=== PATIENT | female | born 1940 | race Caucasian/White ===

== ENCOUNTER 2017-07-19 14:45 | Emergency (ER) | payer MEDICARE, OTHER ==
[2017-07-19 15:00] VITALS: BP 143/77
[2017-07-19] MEDS ORDERED: Diphtheria,Pertussis(Acell),Tetanus Vaccine 0.5 ML SDV IM ONE (15:20)
[2017-07-19] MEDS ORDERED: HYDROmorphone 0.5 MG/0.5 ML Syringe IM ONE (15:20)
--- NOTE | 2017-07-19 15:28 | EDM.PDOC ---
ED HPI GENERAL MEDICAL PROBLEM - General Chief Complaint: Upper Extremity Injury/Pain Stated Complaint: LEFT WRIST AND SHOULDER INJURY Time Seen by Provider: 07/19/17 15:13 Source of Information: Reports: Patient History Limitations: Reports: No Limitations - History of Present Illness INITIAL COMMENTS - FREE TEXT/NARRATIVE: Patient is a 77 y/o female who fell two days ago after tripping on uneven concrete. Patient attempted to catch her self with her left upper extremity with no prevail. She injured her upper lip, left wrist, left shoulder. Denies LOC. Pain has been constant. She is unable to move her left arm secondary to generalized shoulder pain. Denies any n/t to left upper extremity, neck/back pain, n/v, vision changes, or currently on any anticoagulants. 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, Cold Therapy left wrist, left shoulder Pain Score (Numeric/FACES): 9 - Related Data Allergies Allergy/AdvReac Type Severity Reaction Status Date / Time oxycodone [Oxycodone] Allergy Rash Verified 09/28/14 09:10 pioglitazone Allergy Swelling Verified 09/28/14 09:10 rosiglitazone [Rosiglitazone] Allergy Swelling Verified 09/28/14 09:10 Home Meds: Home Meds Calcium Carbonate/Vitamin D3 [Caltrate 600 Plus D3 Tablet] 1 tab PO DAILY [History] Furosemide [Lasix] 20 mg PO DAILY 09/28/14 [History] Gabapentin [Neurontin] 600 mg PO TID 09/28/14 [History] Insulin Glarg,Human.Rec.Analog [Lantus] 34 units SUBCUT DAILY 09/28/14 [History] Insulin Lispro [Humalog] 30 unit SQ DAILY 09/28/14 [History] Losartan [Cozaar] 100 mg PO DAILY 09/28/14 [History] Simvastatin [Zocor] 20 mg PO BEDTIME 09/28/14 [History] Ubidecarenone [Co Q-10] 100 mg PO DAILY 09/28/14 [History] Zinc Gluconate [Zinc] 50 mg PO DAILY 09/28/14 [History] amLODIPine [Norvasc] 2.5 mg PO DAILY 09/28/14 [History] traMADol [Ultram] 50 mg PO Q6H PRN 09/28/14 [History] [place] 1-Uutsbiawr-Ubdnhkr E 1,000 mg PO BID 02/13/15 [History] Cholecalciferol (Vitamin D3) [Vitamin D3] 2,000 unit PO DAILY 07/19/17 [History] Cyclobenzaprine [Flexeril] 10 mg PO BID 07/19/17 [History] DULoxetine [Cymbalta] 30 mg PO DAILY 07/19/17 [History] Metoprolol Tartrate [Lopressor] 50 mg PO BID 07/19/17 [History] Past Medical History Cardiovascular History: Reports: Hypertension Musculoskeletal History: Reports: Arthritis, Fibromyalgia Endocrine/Metabolic History: Reports: Diabetes, Type II - Past Surgical History GI Surgical History: Reports: Cholecystectomy Female Surgical History: Reports: Hysterectomy Social & Family History - Family History Family Medical History: Noncontributory - Tobacco Use Smoking Status *Q: Never Smoker Second Hand Smoke Exposure: Yes - Caffeine Use Caffeine Use: Reports: Coffee - Alcohol Use Days Per Week of Alcohol Use: 0 - Recreational Drug Use Recreational Drug Use: No Review of Systems - Review of Systems Review Of Systems: ROS reveals no pertinent complaints other than HPI. ED EXAM, GENERAL - Physical Exam Exam: See Below Exam Limited By: No Limitations General Appearance: Alert, WD/WN, No Apparent Distress Eye Exam: Bilateral Eye: EOMI, PERRL Ears: Normal External Exam, Hearing Grossly Normal Nose: Normal Inspection, Normal Mucosa, No Blood Throat/Mouth: Other (Swelling to the left upper lip with ? laceration to the inner aspect of the lip. Original and dental implants present. #7 tooth, original mildly loose. ) Head: Normocephalic Neck: Normal Inspection, Supple, Non-Tender, Full Range of Motion. No: Lymphadenopathy (L), Lymphadenopathy (R) Respiratory/Chest: No Respiratory Distress, Lungs Clear, Normal Breath Sounds, Chest Non-Tender Cardiovascular: Normal Peripheral Pulses, Regular Rate, Rhythm Peripheral Pulses: 2+: Radial (R) GI/Abdominal: Normal Bowel Sounds, Soft, Non-Tender, Pelvis Stable Back Exam: Normal Inspection, Full Range of Motion. No: Paraspinal Tenderness, Vertebral Tenderness Extremities: Other (Left Upper Ext: swelling noted to the left wrist. pain with palpation of the wrist. exam hinderd by significant amount of pain. No sensory deficits distally. Pain to the left shoulder with palpation (generalized) AROM non existent. Unable to complete PROM secondary to wrist pain. No pain along the clavicle and ac joint. Bony point tenderness the proximal humerus. Nothing noted distally. No elbow pain, swelling, or change in rom. Left great toe ecchymotic with minimal swelling. Decrease in rom noted 2n to pain. no sensory/ motor deficits. No bony abnormalities. ) Neurological: Alert, Oriented, CN II-XII Intact, Normal Cognition, No Motor/ Sensory Deficits Psychiatric: Normal Affect, Normal Mood Skin Exam: Warm, Dry, Intact, No Rash, Ecchymosis ED TRAUMA EXTREMITY PROCEDURES - Splinting Left Thumb Pre-Procedure NV Status: Normal Post-Procedure NV Status: Normal Splint Material: Fiberglass Splint Design: Thumb Spica Applied & Form Fitted By: Provider, Nurse Provider Post-Splint Application NV Check: NV Status Normal, Good Position Complications: No Course - Vital Signs Last Recorded V/S: Last Vital Signs Temp 97.4 F 07/19/17 14:55 Pulse 95 07/19/17 14:55 Resp 18 07/19/17 14:55 BP 143/77 H 07/19/17 14:55 Pulse Ox 99 07/19/17 14:55 - Orders/Labs/Meds Orders: Active Orders 24 hr Category Date Time Status Vaccines to be Administered [RC] PER UNIT ROUTINE Care 07/19/17 15:21 Active Shoulder Comp Lt [CR] Stat Exams 07/19/17 15:20 Taken Toes Great Toe Lt TA [CR] Stat Exams 07/19/17 15:20 Taken Wrist Comp Min 3V Lt [CR] Stat Exams 07/19/17 15:20 Taken Meds: Medications Discontinued Medications Generic Name Dose Route Start Last Admin Trade Name Rockyq PRN Reason Stop Dose Admin Hydrocodone Bitart/Acetaminophen 1 tab 07/19/17 16:59 07/19/17 17:02 [place] 325-5 Mg PO 07/19/17 17:00 1 tab ONETIME ONE Administration Diphtheria/Tetanus/Acell Pertussis 0.5 ml 07/19/17 15:20 07/19/17 15:25 Adacel IM 07/19/17 15:21 0.5 ml .ONCE ONE Administration Hydromorphone HCl 0.5 mg 07/19/17 15:20 07/19/17 15:29 Dilaudid IM 07/19/17 15:21 0.5 mg ONETIME ONE Administration - Re-Assessments/Exams Free Text/Narrative Re-Assessment/Exam: Ordered x-ray of the left shoulder, left wrist, and left great toe. Ordered dilaudid 0.5mg IM and adacel. X-rays of the reviewed with degenerative changes only. NO obvious fractures. Reviewed with Dr. Davies. Pain 05/26 ordered norco. Thumb spica splint applied with no complications. Patient refused any pain mediations upon discharge. Sling will be applied. Discharge instructions as documented. Departure - Departure Time of Disposition: 17:33 Disposition: Home, Self-Care 01 Condition: Good Clinical Impression: Rotator cuff injury Qualifiers: Encounter type: initial encounter Laterality: left Qualified Code(s): S46.002A - Unspecified injury of muscle(s) and tendon(s) of the rotator cuff of left shoulder, initial encounter Left wrist sprain Qualifiers: Encounter type: initial encounter Qualified Code(s): S63.502A - Unspecified sprain of left wrist, initial encounter Laceration of lip Qualifiers: Encounter type: initial encounter Qualified Code(s): S01.511A - Laceration without foreign body of lip, initial encounter Contusion of toe of left foot Qualifiers: Encounter type: initial encounter Toe: great toe Damage to nail status: without damage Qualified Code(s): S90.112A - Contusion of left great toe without damage to nail, initial encounter - Discharge Information Instructions: Shoulder Pain, [id number], Cast or Splint Care, [id number], How to Use a Sling, [id number]-[id number] Referrals: Robb Dwyer MD [Primary Care Provider] - Wilian Dowling MD [Physician] - Forms: ED Department Discharge Additional Instructions: As discussed x-rays of the left shoulder, wrist, and great toe did not reveal bony abnormalities. Final interpretation is pending thus you will be notified if any are present. I am concerned you may have a rotator cuff injury thus will have you wear a sling for this evening due to pain. Would like you to take sling off when sitting and sleeping. When awake will have you perform small rotating circles 3 times daily, expanding diameter of false pass dependent of comfort. Splint was applied to the left thumb/wrist/forearm due to findings on examination concerning for scaphoid fracture. Please call Dr. Brown office friday to schedule an appt to be evaluated in 7 to 10 days. Apply ice to the affected area 3 times daily, 20 minutes in duration, do not apply ice directly on the skin. Take aleve and tylenol for pain. Refrain from any activities that cause worsening pain. Followup with Dentist to reevaluate teeth. laceration to the lip will heal on its own accord. Continue to reassess for infection. Followup with PCP as needed. Return to the E.D. for any new or worsening symptoms. - My Orders Last 24 Hours: My Active Orders 07/19/17 15:20 Shoulder Comp Lt [CR] Stat Toes Great Toe Lt TA [CR] Stat Wrist Comp Min 3V Lt [CR] Stat 07/19/17 15:21 Vaccines to be Administered [RC] PER UNIT ROUTINE - Assessment/Plan Last 24 Hours: My Active Orders 07/19/17 15:20 Shoulder Comp Lt [CR] Stat Toes Great Toe Lt TA [CR] Stat Wrist Comp Min 3V Lt [CR] Stat 07/19/17 15:21 Vaccines to be Administered [RC] PER UNIT ROUTINE
[2017-07-19] MEDS ORDERED: Acetaminophen/HYDROcodone 325-5 MG Tab PO ONE (16:59)
--- NOTE | 2017-07-21 17:54 | CR ---
Left first toe: Four views of the left first toe were obtained. Comparison: No previous toe or foot exam. Joint spaces are preserved. Slight degenerative change is noted at the tarsometatarsal joint. No acute fracture or other bony abnormality is appreciated. Impression: 1. Slight degenerative change. 2. Nothing acute is appreciated on left first toe study. Diagnostic code #2
--- NOTE | 2017-07-21 17:54 | CR ---
Left shoulder: Three views of the left shoulder were obtained. Comparison: No previous shoulder exam. Slight spurring is noted off the glenoid. Acromioclavicular joint appears within normal limits. Bony structures are slightly osteopenic. No acute fracture or other abnormality is appreciated. Impression: 1. Slight degenerative spurring within the glenoid. 2. No additional abnormality is appreciated on left shoulder study. Diagnostic code #2
--- NOTE | 2017-07-21 17:54 | CR ---
Left wrist: Four views of the left wrist were obtained. Comparison: No prior wrist exam. Calcification is seen posterior to the triquetrum most likely due to old injury. Minimal degenerative change is noted at the carpometacarpal joint of the thumb. Lucent line identified off the lateral aspect of the radial styloid process most likely incidental. No acute fracture or other bony abnormality is appreciated. Impression: 1. Incidental findings. Nothing acute is appreciated. Diagnostic code #2
== END 2017-07-19 17:50 | disposition home or self-care (01) ==
LOC: JD.ED 14:45
DX: S01.511A Laceration without foreign body of lip, initial encounter (principal); S63.502A Unspecified sprain of left wrist, initial encounter; S90.112A Contusion of left great toe without damage to nail, initial encounter; S46.002A Unspecified injury of muscle(s) and tendon(s) of the rotator cuff of left shoulder, initial encounter; I10 Essential (primary) hypertension; M19.90 Unspecified osteoarthritis, unspecified site; E11.9 Type 2 diabetes mellitus without complications; Z79.4 Long term (current) use of insulin; Z79.899 Other long term (current) drug therapy; Z88.6 Allergy status to analgesic agent; Z88.8 Allergy status to other drugs, medicaments and biological substances; Z23 Encounter for immunization; W01.0XXA Fall on same level from slipping, tripping and stumbling without subsequent striking against object, initial encounter
CPT/HCPCS: 29125; 73030; 73110; 73660; 90471; 90715; 96372; 99284; A9270; J1170; 99283

== ENCOUNTER 2019-02-11 15:05 | Inpatient (IN) | payer MEDICARE, OTHER ==
--- NOTE | 2019-02-11 15:39 | EDM.PDOC ---
ED HPI GENERAL MEDICAL PROBLEM - General Chief Complaint: Lower Extremity Injury/Pain Stated Complaint: [facility] Time Seen by Provider: 02/11/19 15:14 Source of Information: Reports: Patient, EMS Notes Reviewed, Family, RN Notes Reviewed History Limitations: Reports: No Limitations - History of Present Illness INITIAL COMMENTS - FREE TEXT/NARRATIVE: Patient is a 78-year-old female who is brought in via [facility] ambulance for the evaluation of right hip pain after a fall. States that she was at her daughter's house with her and they were walking outside and she ended up tripping and falling on a patch of ice she states that she fell backwards and landed directly onto her right hip. She did not hit her head nor had any blackout spells or LOC. The daughter relates that she has not tried to weight- bear on the leg and that a neighbor came over and helped her into a folding chair before the ambulance come to get her. The patient states that she is having some right hip pain and also right shoulder pain as well. She has abrasions to her right knuckles. She states that the pain in her hip does not radiate down her right leg. She states that she is having pain in the lateral portion of the right hip. She thought maybe she heard a pop when she tried to move her leg after the fall. She does have good pulses in the feet and is able to wiggle her toes appropriately, the patient is not on any blood thinners, and the ambulance did give her 25 mcg of fentanyl for pain relief on the ambulance ride here. She states that after the accident her pain was a 10 out of 10. She states that the pain is always there however the fentanyl did help with pain relief at this time. The patient notes that she has not had a previous injury to her hip nor her right shoulder however she does have some arthritis in her joints. Right Hip Pain Score (Numeric/FACES): 8 - Related Data Allergies Allergy/AdvReac Type Severity Reaction Status Date / Time oxycodone [Oxycodone] Allergy Rash Verified 02/11/19 15:17 pioglitazone Allergy Swelling Verified 02/11/19 15:17 rosiglitazone [Rosiglitazone] Allergy Swelling Verified 02/11/19 15:17 Home Meds: Home Meds Calcium Carbonate/Vitamin D3 [Caltrate 600 Plus D3 Tablet] 1 tab PO DAILY [History] Furosemide [Lasix] 20 mg PO DAILY 09/28/14 [History] Gabapentin [Neurontin] 600 mg PO TID 09/28/14 [History] Insulin Lispro [Humalog] 30 unit SQ DAILY 09/28/14 [History] Losartan [Cozaar] 50 mg PO DAILY 09/28/14 [History] Ubidecarenone [Co Q-10] 100 mg PO DAILY 09/28/14 [History] Zinc Gluconate [Zinc] 50 mg PO DAILY 09/28/14 [History] traMADol [Ultram] 50 mg PO Q6H PRN 09/28/14 [History] [place] 0-Cjmpvpxrh-Dkfvwbu E 1,000 mg PO BID 02/13/15 [History] Cholecalciferol (Vitamin D3) [Vitamin D3] 2,000 unit PO DAILY 07/19/17 [History] Cyclobenzaprine [Flexeril] 10 mg PO BID 07/19/17 [History] DULoxetine [Cymbalta] 30 mg PO DAILY 07/19/17 [History] Metoprolol Tartrate [Lopressor] 50 mg PO BID 07/19/17 [History] Simvastatin [Zocor] 20 mg PO BEDTIME 02/10/18 [History] Past Medical History HEENT History: Reports: Impaired Vision Other HEENT History: pt wears glasses Cardiovascular History: Reports: Hypertension [employer] WORKER History: Reports: Musculoskeletal History: Reports: Arthritis, Back Pain, Chronic, Fibromyalgia, Osteoarthritis, Other (See Below) Other Musculoskeletal History: chronic knee pain Endocrine/Metabolic History: Reports: Diabetes, Type II - Infectious Disease History Infectious Disease History: Reports: Chicken Pox, Measles - Past Surgical History GI Surgical History: Reports: Cholecystectomy Female Surgical History: Reports: Hysterectomy Social & Family History - Family History Family Medical History: Noncontributory - Tobacco Use Smoking Status *Q: Never Smoker - Caffeine Use Caffeine Use: Reports: Coffee - Recreational Drug Use Recreational Drug Use: No Review of Systems - Review of Systems Review Of Systems: See Below Constitutional: Reports: No Symptoms Eyes: Reports: No Symptoms Ears: Reports: No Symptoms Nose: Reports: No Symptoms Mouth/Throat: Reports: No Symptoms Respiratory: Reports: No Symptoms Cardiovascular: Reports: No Symptoms GI/Abdominal: Reports: No Symptoms Genitourinary: Reports: No Symptoms Musculoskeletal: Reports: Shoulder Pain (right), Joint Pain (right hip). Denies : Arm Pain, Leg Pain, Joint Swelling Skin: Reports: Wound (Abrasions over her right PIPs on the second, third and fourth digits) Neurological: Reports: No Symptoms Psychiatric: Reports: No Symptoms ED EXAM, GENERAL - Physical Exam Exam: See Below Exam Limited By: No Limitations General Appearance: Alert, WD/WN, No Apparent Distress Eye Exam: Bilateral Eye: EOMI, Normal Inspection, PERRL Ears: Normal External Exam, Normal TMs Nose: Normal Inspection Throat/Mouth: Normal Inspection, Normal Lips, Normal Teeth, Normal Gums, Normal Oropharynx, Normal Voice, No Airway Compromise Head: Atraumatic, Normocephalic Neck: Normal Inspection, Supple, Non-Tender, Full Range of Motion Respiratory/Chest: No Respiratory Distress, Lungs Clear, Normal Breath Sounds, No Accessory Muscle Use, Chest Non-Tender Cardiovascular: Normal Peripheral Pulses, Regular Rate, Rhythm, No Murmur Peripheral Pulses: 3+: Dorsalis Pedis (L), Dorsalis Pedis (R) GI/Abdominal: Normal Bowel Sounds, Soft, Non-Tender, No Distention, No Mass Extremities: Normal Inspection, Normal Capillary Refill, Limited Range of Motion (of right hip and right shoulder d/t pain, ), Other (pt' feet are cool to the touch, but she states that she has poor circulation d/t diabetes, she also has peripheral neruopathy, but states that this is not worse from her normal.) Neurological: Alert, Oriented, Normal Cognition, Normal Reflexes, No Motor/ Sensory Deficits Psychiatric: Normal Affect, Normal Mood Skin Exam: Warm, Dry, Normal Color, No Rash, Wound/Incision (Abrasions over her right PIPs on the second, third and fourth digits) Course - Vital Signs Last Recorded V/S: Last Vital Signs Temp 98.5 F 02/11/19 15:13 Pulse 65 02/11/19 15:13 Resp 20 02/11/19 15:13 BP 152/66 H 02/11/19 15:13 Pulse Ox 95 02/11/19 15:13 - Orders/Labs/Meds Labs: Laboratory Tests 02/11/19 02/11/19 02/11/19 Range/Units 16:08 16:08 16:08 WBC 13.81 H (3.98-10.04) K/mm3 RBC 4.82 (3.98-5.22) M/mm3 Hgb 13.3 (11.2-15.7) gm/L Hct 41.9 (34.1-44.9) % MCV 86.9 (79.4-94.8) fl MCH 27.6 (25.6-32.2) pg MCHC 31.7 L (32.2-35.5) g/dl RDW Std Deviation 44.0 (36.4-46.3) fL Plt Count 229 (182-369) K/mm3 MPV 11.3 (9.4-12.3) fl Neutrophils % (Manual) 89 H (40-60) % Band Neutrophils % 0 (0-10) % Lymphocytes % (Manual) 8 L (20-40) % Atypical Lymphs % 0 % Monocytes % (Manual) 2 (2-10) % Eosinophils % (Manual) 1 (0.7-5.8) % Basophils % (Manual) 0 L (0.1-1.2) Platelet Estimate Adequate RBC Morph Comment Normal Sodium 140 (136-145) mEq/L Potassium 3.8 (3.5-5.1) mEq/L Chloride 102 (98-107) mEq/L Carbon Dioxide 30 (21-32) mEq/L Anion Gap 11.8 (5-15) BUN 22 H (7-18) mg/dL Creatinine 1.0 (0.55-1.02) mg/dL Est Cr Clr Drug Dosing 44.36 mL/min Estimated GFR (MDRD) 53 (>60) mL/min BUN/Creatinine Ratio 22.0 H (14-18) Glucose 115 (83-115) mg/dL Calcium 9.7 (8.5-10.1) mg/dL Total Bilirubin 0.3 (0.2-1.0) mg/dL AST 20 (15-37) U/L ALT 24 (14-59) U/L Alkaline Phosphatase 116 (46-116) U/L Total Protein 7.1 (6.4-8.2) g/dl Albumin 3.5 (3.4-5.0) g/dl Globulin 3.6 gm/dL Albumin/Globulin Ratio 1.0 (1-2) Blood Type O POSITIVE Gel Antibody Screen Negative Meds: Medications Discontinued Medications Generic Name Dose Route Start Last Admin Trade Name Freq PRN Reason Stop Dose Admin Hydromorphone HCl 0.5 mg 02/11/19 15:47 02/11/19 15:57 Dilaudid IVPUSH 02/11/19 15:48 0.5 mg ONETIME ONE Administration Hydromorphone HCl 0.5 mg 02/11/19 17:24 02/11/19 17:36 Dilaudid IVPUSH 02/11/19 17:25 0.5 mg ONETIME ONE Administration - Radiology Interpretation Free Text/Narrative:: Radiologist does not see any acute sign of fracture in her shoulder, he did see a slightly angulated intertrochanteric fracture within the right femur, angulated fragment is seen of the lesser trochanter. No additional fractures seen, degenerative change and slight scoliosis are partially visualized within the lower lumbar spine. - Re-Assessments/Exams Free Text/Narrative Re-Assessment/Exam: 02/11/19 15:41 Patient presents to the ED for evaluation of right hip and right shoulder pain after a fall. I did order x-rays of both joints. I did not order anything for pain at this time as it is controlled with the fentanyl that she was given by the ambulance service. She was directed to call if the pain increases and she wishes to have something more. The patient and the daughter state that the patient's last meal or oral fluid intake was around 1 PM this afternoon. 02/11/19 16:04 The patient's x-rays have returned and the shoulder does not appear to have any acute fractures. Her right hip x-ray does show a intertrochanteric fracture of the right femur. Dr. Dowling was consulted and he will likely fix this tomorrow and asks that Dr. Ortiz admit this under hospitalist service and provide an order for consult for him for tomorrow. Dr. Ortiz was called for this likely admission and she requests preop labs be drawn and a head CT be done if the patient hit her head at all. The patient was asked multiple times again if she hit her head she denies this and the daughter does not think she hit her head either. The daughter was present for the fall. Have ordered a CBC, CMP, & type and screen for labs. I did order 0.5 mg IV Dilaudid for pain relief. 02/11/19 16:12 Dr. Dowling did call back to the ED and states that he plans on fixing the patient' s hip tomorrow around noon. 02/11/19 17:25 Patient is admitted to the hospital on MedSurg with telemetry. She stated that she was having some increased pain and right hip I did order another 0.5 mg of IV Dilaudid. Departure - Departure Time of Disposition: 16:30 Disposition: Admitted As Inpatient 65 Condition: Fair Clinical Impression: Intertrochanteric fracture, hip - Discharge Information *PRESCRIPTION DRUG MONITORING PROGRAM REVIEWED*: No *COPY OF PRESCRIPTION DRUG MONITORING REPORT IN PATIENT TONY: No
[2019-02-11] MEDS ORDERED: HYDROmorphone 1 MG/ML Syringe IVPUSH ONE ×2 (15:47→17:24)
--- NOTE | 2019-02-11 16:39 | CR ---
Pelvis and right hip: AP view of the pelvis was obtained as well as AP and lateral views of the right hip. Slightly angulated intertrochanteric fracture is seen within the right hip. Angulated fragment is seen of the lesser trochanter. Mild joint space narrowing is seen within the right hip. No additional fracture is seen. Degenerative change and slight scoliosis are partially visualized within the lower lumbar spine. Impression: 1. Intertrochanteric fracture with right hip as noted above. 2. Other incidental findings. Diagnostic code #3
--- NOTE | 2019-02-11 16:39 | CR ---
Right shoulder: Three views of the right shoulder were obtained. Comparison: No prior right shoulder exam. Glenohumeral and acromioclavicular joints appear within normal limits. Small nodule is noted within the right upper lung which is felt compatible with granuloma. No acute fracture or other abnormality is seen. Impression: 1. Incidental findings. Nothing acute is appreciated. Diagnostic code #2
[2019-02-11] MEDS ORDERED: traMADol 50 MG Tab PO PRN (19:46)
[2019-02-11] MEDS ORDERED: Ondansetron 4 MG/2 ML SDV IVPUSH PRN (20:02)
--- NOTE | 2019-02-11 20:08 | PCM.HP ---
H&P History of Present Illness - General Date of Service: 02/11/19 Admit Problem/Dx: Admission Diagnosis/Problem Admission Diagnosis/Problem Hip fracture, intertrochanteric Source of Information: Patient, Family, Provider History Limitations: Reports: No Limitations - History of Present Illness Initial Comments - Free Text/Narative: 78 year old female slipped on ice which resulted in right hip and shoulder pain. Radiographic studies document a right hip fracture. She is scheduled for ortho surgery on 02/12/19, time TBD. PMH: DM type 2; HTN; HLD; OA; FMG. Onset of Symptoms: Reports: Sudden Symptom Onset Date: 02/11/19 Duration of Symptoms: Reports: Hour(s):, Getting Worse Location: Reports: Lower Extremity, Right Quality: Reports: Sharp Severity: Moderate Improves with: Reports: Medication Worsens with: Reports: Movement Associated Symptoms: Reports: No Other Symptoms Right Hip Pain Score (Numeric/FACES): 8 - Related Data Allergies/Adverse Reactions: Allergies Allergy/AdvReac Type Severity Reaction Status Date / Time oxycodone [Oxycodone] Allergy Rash Verified 02/11/19 15:17 pioglitazone Allergy Swelling Verified 02/11/19 15:17 rosiglitazone [Rosiglitazone] Allergy Swelling Verified 02/11/19 15:17 Home Medications: Home Meds Calcium Carbonate/Vitamin D3 [Caltrate 600 Plus D3 Tablet] 1 tab PO DAILY [History] Furosemide [Lasix] 20 mg PO DAILY 09/28/14 [History] Gabapentin [Neurontin] 600 mg PO TID 09/28/14 [History] Insulin Lispro [Humalog] 30 unit SQ DAILY 09/28/14 [History] Losartan [Cozaar] 50 mg PO DAILY 09/28/14 [History] Ubidecarenone [Co Q-10] 100 mg PO DAILY 09/28/14 [History] Zinc Gluconate [Zinc] 50 mg PO DAILY 09/28/14 [History] traMADol [Ultram] 50 mg PO Q6H PRN 09/28/14 [History] [place] 4-Gvhhzdmnv-Qqqzbmc E 1,000 mg PO BID 02/13/15 [History] Cholecalciferol (Vitamin D3) [Vitamin D3] 2,000 unit PO DAILY 07/19/17 [History] Cyclobenzaprine [Flexeril] 10 mg PO BID 07/19/17 [History] DULoxetine [Cymbalta] 30 mg PO DAILY 07/19/17 [History] Metoprolol Tartrate [Lopressor] 50 mg PO BID 07/19/17 [History] Simvastatin [Zocor] 20 mg PO BEDTIME 02/10/18 [History] Past Medical History HEENT History: Reports: Impaired Vision Other HEENT History: pt wears glasses Cardiovascular History: Reports: Hypertension Gastrointestinal History: Reports: Other (See Below) Other Gastrointestinal History: "colon trouble"-per pt. was told to watch for a torsion, she stated her colon pointed [employer] History: Reports: Musculoskeletal History: Reports: Arthritis, Back Pain, Chronic, Fibromyalgia, Osteoarthritis, Other (See Below) Other Musculoskeletal History: chronic knee pain Endocrine/Metabolic History: Reports: Diabetes, Type II - Infectious Disease History Infectious Disease History: Reports: Chicken Pox, Measles - Past Surgical History GI Surgical History: Reports: Cholecystectomy Female Surgical History: Reports: Hysterectomy Social & Family History - Family History Family Medical History: Noncontributory - Tobacco Use Smoking Status *Q: Never Smoker Second Hand Smoke Exposure: No - Caffeine Use Caffeine Use: Reports: Coffee Other Caffeine Use: 4 -5 cups a day - Recreational Drug Use Recreational Drug Use: No H&P Review of Systems - Review of Systems: Review Of Systems: See Below General: Reports: Weakness HEENT: Reports: No Symptoms Pulmonary: Reports: No Symptoms Cardiovascular: Reports: No Symptoms Gastrointestinal: Reports: No Symptoms Genitourinary: Reports: No Symptoms Musculoskeletal: Reports: No Symptoms Skin: Reports: No Symptoms Psychiatric: Reports: No Symptoms Neurological: Reports: No Symptoms Hematologic/Lymphatic: Reports: No Symptoms Immunologic: Reports: No Symptoms Exam - Exam Exam: See Below - Vital Signs Vital Signs: Last Vital Signs Temp 36.9 C 02/11/19 15:13 Pulse 65 02/11/19 15:13 Resp 20 02/11/19 15:13 BP 152/66 H 02/11/19 15:13 Pulse Ox 95 02/11/19 15:13 Weight: 77.927 kg - Exam Quality Assessment: Urinary Catheter, DVT Prophylaxis General: Alert, Oriented, Cooperative HEENT: Conjunctiva Clear, EOMI, Hearing Intact, Nares Patent, Normal Nasal Septum, Pupils Equal, Pupils Reactive, PERRLA Neck: Trachea Midline Lungs: Normal Respiratory Effort Cardiovascular: Regular Rate GI/Abdominal Exam: Normal Bowel Sounds, Soft, Non-Tender, No Organomegaly, No Distention (Female) Exam: Deferred Rectal (Female) Exam: Deferred Back Exam: Normal Inspection Extremities: Normal Inspection, Non-Tender, Normal Capillary Refill Skin: Warm Neurological: Cranial Nerves Intact Neuro Extensive - Mental Status: Alert, Oriented x3, Normal Mood/Affect, Normal Cognition, Memory Intact Neuro Extensive - Motor, Sensory, Reflexes: CN II-XII Intact Psychiatric: Alert, Normal Affect, Normal Mood - Patient Data Lab Results Last 24 hrs: Laboratory Results - last 24 hr 02/11/19 02/11/19 02/11/19 Range/Units 16:08 16:08 16:08 WBC 13.81 H (3.98-10.04) K/mm3 RBC 4.82 (3.98-5.22) M/mm3 Hgb 13.3 (11.2-15.7) gm/L Hct 41.9 (34.1-44.9) % MCV 86.9 (79.4-94.8) fl MCH 27.6 (25.6-32.2) pg MCHC 31.7 L (32.2-35.5) g/dl RDW Std Deviation 44.0 (36.4-46.3) fL Plt Count 229 (182-369) K/mm3 MPV 11.3 (9.4-12.3) fl Neutrophils % (Manual) 89 H (40-60) % Band Neutrophils % 0 (0-10) % Lymphocytes % (Manual) 8 L (20-40) % Atypical Lymphs % 0 % Monocytes % (Manual) 2 (2-10) % Eosinophils % (Manual) 1 (0.7-5.8) % Basophils % (Manual) 0 L (0.1-1.2) Platelet Estimate Adequate RBC Morph Comment Normal Sodium 140 (136-145) mEq/L Potassium 3.8 (3.5-5.1) mEq/L Chloride 102 (98-107) mEq/L Carbon Dioxide 30 (21-32) mEq/L Anion Gap 11.8 (5-15) BUN 22 H (7-18) mg/dL Creatinine 1.0 (0.55-1.02) mg/dL Est Cr Clr Drug Dosing 44.36 mL/min Estimated GFR (MDRD) 53 (>60) mL/min BUN/Creatinine Ratio 22.0 H (14-18) Glucose 115 (83-115) mg/dL Calcium 9.7 (8.5-10.1) mg/dL Total Bilirubin 0.3 (0.2-1.0) mg/dL AST 20 (15-37) U/L ALT 24 (14-59) U/L Alkaline Phosphatase 116 (46-116) U/L Total Protein 7.1 (6.4-8.2) g/dl Albumin 3.5 (3.4-5.0) g/dl Globulin 3.6 gm/dL Albumin/Globulin Ratio 1.0 (1-2) Blood Type O POSITIVE Gel Antibody Screen Negative Result Diagrams: 02/11/19 16:08 02/11/19 16:08 - Problem List (1) Diabetes mellitus SNOMED Code(s): 91906220 ICD Code: E11.9 - TYPE 2 DIABETES MELLITUS WITHOUT COMPLICATIONS Status: Acute Current Visit: No (2) HTN (hypertension), malignant SNOMED Code(s): 75031298 ICD Code: I10 - ESSENTIAL (PRIMARY) HYPERTENSION Status: Acute Current Visit: No (3) Intertrochanteric fracture, hip SNOMED Code(s): 228502647 ICD Code: S72.143A - DISPLACED INTERTROCHANTERIC FRACTURE OF UNSP FEMUR, INIT Status: Acute Current Visit: No Problem List Initiated/Reviewed/Updated: Yes Orders Last 24hrs: Active Orders 24 hr Category Date Time Status Admission Status [Patient Status] [ADT] Routine ADT 02/11/19 16:25 Active EKG 12 Lead [EKG Documentation Completion] [RC] ROUTINE Care 02/11/19 19:54 Ordered Insert [place] Catheter [Insert Urinary Catheter] [OM.PC] Care 02/11/19 20:00 Ordered Q24H Urinary Catheter Assessment [RC] ASDIRECTED Care 02/11/19 19:49 Ordered Verify Patient Consent Obtain [RC] ASDIRECTED Care 02/11/19 19:37 Active Consult to Case Management/Mold Runner [CONS] Cons 02/12/19 09:00 Ordered Routine Consult to Occupational Therapy [OT Evaluation and Cons 02/12/19 09:00 Ordered Treatment] [CONS] Routine Consult to Physical Therapy [PT Evaluation and Cons 02/12/19 09:00 Ordered Treatment] [CONS] Routine Heart Healthy Diet [DIET] Diet 02/11/19 Dinner Active NPO After Midnight [Nothing per Oral After Midnight Diet 02/12/19 Lunch Ordered Diet] [DIET] BMP [BASIC METABOLIC PANEL,BMP] [CHEM] DAILY Lab 02/12/19 05:00 Ordered BMP [BASIC METABOLIC PANEL,BMP] [CHEM] DAILY Lab 02/13/19 05:00 Ordered BMP [BASIC METABOLIC PANEL,BMP] [CHEM] DAILY Lab 02/14/19 05:00 Ordered BMP [BASIC METABOLIC PANEL,BMP] [CHEM] DAILY Lab 02/15/19 05:00 Ordered CBC WITH AUTO DIFF [HEME] DAILY Lab 02/12/19 05:00 Ordered CBC WITH AUTO DIFF [HEME] DAILY Lab 02/13/19 05:00 Ordered CBC WITH AUTO DIFF [HEME] DAILY Lab 02/14/19 05:00 Ordered CBC WITH AUTO DIFF [HEME] DAILY Lab 02/15/19 05:00 Ordered CRP [C-REACTIVE PROTEIN] [CHEM] DAILY Lab 02/12/19 05:00 Ordered CRP [C-REACTIVE PROTEIN] [CHEM] DAILY Lab 02/13/19 05:00 Ordered CRP [C-REACTIVE PROTEIN] [CHEM] DAILY Lab 02/14/19 05:00 Ordered CRP [C-REACTIVE PROTEIN] [CHEM] DAILY Lab 02/15/19 05:00 Ordered INR,PT,PROTHROMBIN TIME [COAG] Routine Lab 02/12/19 05:00 Ordered MAGNESIUM [CHEM] AM Lab 02/12/19 05:11 Ordered MAGNESIUM [CHEM] AM Lab 02/13/19 05:11 Ordered MAGNESIUM [CHEM] AM Lab 02/14/19 05:11 Ordered MAGNESIUM [CHEM] AM Lab 02/15/19 05:11 Ordered METH-RESIST S.AUR,MRSA BY PCR [MOLEC] Routine Lab 02/11/19 19:37 Ordered PTT,PARTIAL THROMBOPLSTIN TIME [COAG] Routine Lab 02/12/19 05:00 Ordered UA RFX NIA AND CULT IF INDIC [URIN] Routine Lab 02/11/19 19:49 Ordered Acetaminophen/HYDROcodone [[place] 325-5 MG] Med 02/11/19 19:58 Ordered 1 tab PO Q6H PRN Cyclobenzaprine [Flexeril] Med 02/11/19 21:00 Ordered 10 mg PO BID DULoxetine [Cymbalta] Med 02/12/19 09:00 Ordered 30 mg PO DAILY Gabapentin [Neurontin] Med 02/11/19 21:00 Ordered 600 mg PO TID HYDROmorphone [Dilaudid] Med 02/11/19 19:57 Ordered 0.5 mg IVPUSH Q8H PRN Lactated Ringers @ 100 MLS/HR(1000ml Bag) Med 02/11/19 20:15 Ordered Lactated Ringers [Ringers, Lactated] 1,000 ml IV ASDIRECTED Metoprolol Tartrate [Lopressor] Med 02/11/19 21:00 Ordered 50 mg PO BID Ondansetron [Zofran] Med 02/11/19 20:02 Ordered 4 mg IVPUSH Q8H PRN Simvastatin [Zocor] Med 02/11/19 21:00 Ordered 20 mg PO BEDTIME traMADol [Ultram] Med 02/11/19 19:46 Ordered 50 mg PO Q6H PRN Medication Orders Hydrocodone Bitart/Acetaminophen ([place] 325-5 Mg) 1 tab PO Q6H PRN PRN Reason: Pain (moderate 4-6) Cyclobenzaprine HCl (Flexeril) 10 mg PO BID [place] Duloxetine HCl (Cymbalta) 30 mg PO DAILY [place] Gabapentin (Neurontin) 600 mg PO TID [place] Hydromorphone HCl (Dilaudid) 0.5 mg IVPUSH Q8H PRN PRN Reason: Pain (severe 7-10) Lactated Ringer's (Ringers, Lactated) 1,000 mls @ 100 mls/hr IV ASDIRECTED [place] Metoprolol Tartrate (Lopressor) 50 mg PO BID [place] Ondansetron HCl (Zofran) 4 mg IVPUSH Q8H PRN PRN Reason: Nausea/Vomiting Simvastatin (Zocor) 20 mg PO BEDTIME [place] Tramadol HCl (Ultram) 50 mg PO Q6H PRN PRN Reason: Pain Assessment/Plan Comment:: Impression: Right hip fracture S/P fall; intertrochanteric fracture, right femur Right shoulder pain, no evidence of fracture Chronic FMG HTN OA Diabetes mellitus, type 2 Plan: Preop eval Home meds Daily labs Pain mgt Consult PT/OT/CM DVT/GI prophylaxis
[2019-02-11] MEDS ORDERED: Lactated Ringers 1,000 ML IV SCH (20:15)
[2019-02-11] MEDS: Acetaminophen/HYDROcodone 325-5 MG Tab PO PRN (20:44)
[2019-02-11] MEDS: Gabapentin 300 MG Cap PO SCH (20:44)
[2019-02-11] MEDS: Cyclobenzaprine 10 MG Tab PO SCH (20:44)
[2019-02-11] MEDS: Simvastatin 20 MG Tab PO SCH (20:45)
[2019-02-11] MEDS: Metoprolol Tartrate 50 MG Tab PO SCH (20:45)
[2019-02-12] MEDS: HYDROmorphone 0.5 MG/0.5 ML Syringe IVPUSH PRN ×2 (00:38→23:02)
--- NOTE | 2019-02-12 06:50 | PCM.PN ---
- General Info Date of Service: 02/12/19 Admission Dx/Problem (Free Text): Admission Diagnosis/Problem Admission Diagnosis/Problem Hip fracture, intertrochanteric Functional Status: Reports: Pain Controlled, Tolerating Diet, Urinating, Incentive Spirometry. Denies: Ambulating, New Symptoms - Review of Systems General: Reports: Weakness. Denies: Fever, Fatigue, Malaise, Chills HEENT: Reports: No Symptoms. Denies: Headaches, Sore Throat Pulmonary: Reports: Pleuritic Chest Pain (very mild ). Denies: Shortness of Breath, Cough, Sputum, Wheezing Cardiovascular: Reports: No Symptoms. Denies: Chest Pain, Palpitations, Dyspnea on Exertion, Edema Gastrointestinal: Reports: No Symptoms. Denies: Abdominal Pain, Constipation, Diarrhea, Nausea, Vomiting Genitourinary: Reports: No Symptoms. Denies: Pain Musculoskeletal: Reports: Leg Pain (mild ) Skin: Reports: No Symptoms Neurological: Reports: Numbness (2/2 anesthesia), Tingling (2/2 anesthesia), Difficulty Walking, Weakness, Gait Disturbance Psychiatric: Reports: No Symptoms. Denies: Confusion - Patient Data Vitals - Most Recent: Last Vital Signs Temp 98.1 F 02/12/19 03:29 Pulse 73 02/12/19 03:29 Resp 18 02/12/19 03:29 BP 118/73 02/12/19 03:29 Pulse Ox 97 02/12/19 03:29 Weight - Most Recent: 172 lb I&O - Last 24 Hours: Intake & Output 02/11/19 02/11/19 02/12/19 14:59 22:59 06:59 Intake Total 700 Output Total 1000 Balance -300 Lab Results Last 24 Hours: Laboratory Results - last 24 hr 02/11/19 02/11/19 02/11/19 Range/Units 16:08 16:08 16:08 WBC 13.81 H (3.98-10.04) K/mm3 RBC 4.82 (3.98-5.22) M/mm3 Hgb 13.3 (11.2-15.7) gm/L Hct 41.9 (34.1-44.9) % MCV 86.9 (79.4-94.8) fl MCH 27.6 (25.6-32.2) pg MCHC 31.7 L (32.2-35.5) g/dl RDW Std Deviation 44.0 (36.4-46.3) fL Plt Count 229 (182-369) K/mm3 MPV 11.3 (9.4-12.3) fl Neutrophils % (Manual) 89 H (40-60) % Band Neutrophils % 0 (0-10) % Lymphocytes % (Manual) 8 L (20-40) % Atypical Lymphs % 0 % Monocytes % (Manual) 2 (2-10) % Eosinophils % (Manual) 1 (0.7-5.8) % Basophils % (Manual) 0 L (0.1-1.2) Platelet Estimate Adequate RBC Morph Comment Normal Sodium 140 (136-145) mEq/L Potassium 3.8 (3.5-5.1) mEq/L Chloride 102 (98-107) mEq/L Carbon Dioxide 30 (21-32) mEq/L Anion Gap 11.8 (5-15) BUN 22 H (7-18) mg/dL Creatinine 1.0 (0.55-1.02) mg/dL Est Cr Clr Drug Dosing 44.36 mL/min Estimated GFR (MDRD) 53 (>60) mL/min BUN/Creatinine Ratio 22.0 H (14-18) Glucose 115 (83-115) mg/dL Calcium 9.7 (8.5-10.1) mg/dL Total Bilirubin 0.3 (0.2-1.0) mg/dL AST 20 (15-37) U/L ALT 24 (14-59) U/L Alkaline Phosphatase 116 (46-116) U/L Total Protein 7.1 (6.4-8.2) g/dl Albumin 3.5 (3.4-5.0) g/dl Globulin 3.6 gm/dL Albumin/Globulin Ratio 1.0 (1-2) Urine Color (Yellow) Urine Appearance (Clear) Urine pH (5.0-8.0) Ur Specific [place] (1.005-1.030) Urine Protein (Negative) Urine Glucose (UA) (Negative) Urine Ketones (Negative) Urine Occult Blood (Negative) Urine Nitrite (Negative) Urine Bilirubin (Negative) Urine Urobilinogen (0.2-1.0) Ur Leukocyte Esterase (Negative) Urine RBC (0-5) /hpf Urine WBC (0-5) /hpf Ur Epithelial Cells (0-5) /hpf Urine Bacteria (FEW) /hpf Hyaline Casts (0-5) /lpf Urine Mucus (FEW) /hpf MRSA (PCR) Blood Type O POSITIVE Gel Antibody Screen Negative 02/12/19 02/12/19 Range/Units 00:40 03:35 WBC (3.98-10.04) K/mm3 RBC (3.98-5.22) M/mm3 Hgb (11.2-15.7) gm/L Hct (34.1-44.9) % MCV (79.4-94.8) fl MCH (25.6-32.2) pg MCHC (32.2-35.5) g/dl RDW Std Deviation (36.4-46.3) fL Plt Count (182-369) K/mm3 MPV (9.4-12.3) fl Neutrophils % (Manual) (40-60) % Band Neutrophils % (0-10) % Lymphocytes % (Manual) (20-40) % Atypical Lymphs % % Monocytes % (Manual) (2-10) % Eosinophils % (Manual) (0.7-5.8) % Basophils % (Manual) (0.1-1.2) Platelet Estimate RBC Morph Comment Sodium (136-145) mEq/L Potassium (3.5-5.1) mEq/L Chloride (98-107) mEq/L Carbon Dioxide (21-32) mEq/L Anion Gap (5-15) BUN (7-18) mg/dL Creatinine (0.55-1.02) mg/dL Est Cr Clr Drug Dosing mL/min Estimated GFR (MDRD) (>60) mL/min BUN/Creatinine Ratio (14-18) Glucose (83-115) mg/dL Calcium (8.5-10.1) mg/dL Total Bilirubin (0.2-1.0) mg/dL AST (15-37) U/L ALT (14-59) U/L Alkaline Phosphatase (46-116) U/L Total Protein (6.4-8.2) g/dl Albumin (3.4-5.0) g/dl Globulin gm/dL Albumin/Globulin Ratio (1-2) Urine Color Yellow (Yellow) Urine Appearance Slt cloudy H (Clear) Urine pH 6.0 (5.0-8.0) Ur Specific [place] 1.025 (1.005-1.030) Urine Protein Trace H (Negative) Urine Glucose (UA) Negative (Negative) Urine Ketones 1+ H (Negative) Urine Occult Blood Negative (Negative) Urine Nitrite Negative (Negative) Urine Bilirubin Negative (Negative) Urine Urobilinogen 1.0 (0.2-1.0) Ur Leukocyte Esterase Negative (Negative) Urine RBC Not seen (0-5) /hpf Urine WBC Not seen (0-5) /hpf Ur Epithelial Cells Not seen (0-5) /hpf Urine Bacteria Rare (FEW) /hpf Hyaline Casts 0-5 (0-5) /lpf Urine Mucus Rare H (FEW) /hpf MRSA (PCR) Negative Blood Type Gel Antibody Screen Med Orders - Current: Current Medications Hydrocodone Bitart/Acetaminophen ([place] 325-5 Mg) 1 tab PO Q6H PRN PRN Reason: Pain (moderate 4-6) Last Admin: 02/11/19 20:44 Dose: 1 tab Cyclobenzaprine HCl (Flexeril) 10 mg PO BID [facility] Last Admin: 02/11/19 20:44 Dose: 10 mg Duloxetine HCl (Cymbalta) 30 mg PO DAILY [facility] Enoxaparin Sodium (Lovenox) 30 mg SUBCUT Q24H [facility] Gabapentin (Neurontin) 600 mg PO TID [facility] Last Admin: 02/11/19 20:44 Dose: 600 mg Hydromorphone HCl (Dilaudid) 0.5 mg IVPUSH Q8H PRN PRN Reason: Pain (severe 7-10) Last Admin: 02/12/19 00:38 Dose: 0.5 mg Lactated Ringer's (Ringers, Lactated) 1,000 mls @ 100 mls/hr IV ASDIRECTED [facility] Last Admin: 02/12/19 00:30 Dose: 100 mls/hr Metoprolol Tartrate (Lopressor) 50 mg PO BID [facility] Last Admin: 02/11/19 20:45 Dose: 50 mg Ondansetron HCl (Zofran) 4 mg IVPUSH Q8H PRN PRN Reason: Nausea/Vomiting Simvastatin (Zocor) 20 mg PO BEDTIME [facility] Last Admin: 02/11/19 20:45 Dose: 20 mg Tramadol HCl (Ultram) 50 mg PO Q6H PRN PRN Reason: Pain Discontinued Medications Hydromorphone HCl (Dilaudid) 0.5 mg IVPUSH ONETIME ONE Stop: 02/11/19 15:48 Last Admin: 02/11/19 15:57 Dose: 0.5 mg Hydromorphone HCl (Dilaudid) 0.5 mg IVPUSH ONETIME ONE Stop: 02/11/19 17:25 Last Admin: 02/11/19 17:36 Dose: 0.5 mg - Exam Quality Assessment: DVT Prophylaxis General: Alert, Oriented, Cooperative HEENT: Pupils Equal, Pupils Reactive, EOMI, Mucous Membr. Moist/[place] Neck: Supple, Trachea Midline Lungs: Clear to Auscultation, Normal Respiratory Effort Cardiovascular: Regular Rate, Regular Rhythm GI/Abdominal Exam: Normal Bowel Sounds, Soft, Non-Tender, No Organomegaly, No Distention (Female) Exam: Deferred Back Exam: Normal Inspection, Full Range of Motion Extremities: No Pedal Edema, Normal Capillary Refill, Leg Pain, Limited Range of Motion, Other (Bandage in place on right hip. Cooling pack in place ) Skin: Warm, Dry, Intact Wound/Incisions: Dressing Dry and Intact, No Drainage Neurological: No New Focal Deficit Psy/Mental Status: Alert, Normal Affect, Normal Mood - Problem List & Annotations (1) Diabetes mellitus SNOMED Code(s): 83801210 Code(s): E11.9 - TYPE 2 DIABETES MELLITUS WITHOUT COMPLICATIONS Status: Chronic Priority: Medium Current Visit: No Qualifiers: Diabetes mellitus type: type 2 Diabetes mellitus ocean transportation intermediary insulin use: with ocean transportation intermediary use Diabetes mellitus complication status: with unspecified complications Qualified Code(s): E11.8 - Type 2 diabetes mellitus with unspecified complications; Z79.4 - correction (current) use of insulin (2) HTN (hypertension), malignant SNOMED Code(s): 37566760 Code(s): I10 - ESSENTIAL (PRIMARY) HYPERTENSION Status: Chronic Priority : Medium Current Visit: No (3) Intertrochanteric fracture, hip SNOMED Code(s): 473487042 Code(s): S72.143A - DISPLACED INTERTROCHANTERIC FRACTURE OF UNSP FEMUR, INIT Status: Acute Priority: High Current Visit: Yes - Problem List Review Problem List Initiated/Reviewed/Updated: Yes - Plan Plan:: Impression: Right hip fracture S/P fall; intertrochanteric fracture, right femur -Post-op day 0 right femur IM nailing Right shoulder pain, no evidence of fracture Chronic FMG HTN OA Diabetes mellitus, type 2 Plan: Preop eval surgical fixation 02/12/19 Pain management Remove grace catheter when ambulatory Home meds Daily labs Pain mgt IS Consult PT/OT/CM DVT/GI prophylaxis
[2019-02-12] MEDS ORDERED: 50% Dextrose in Water 50 ML Syringe IVPUSH PRN (06:58)
[2019-02-12] MEDS: Insulin Lispro 100 Units/ML 3 ML Vial SUBCUT SCH ×4 (07:44→22:45)
[2019-02-12] MEDS: Metoprolol Tartrate 50 MG Tab PO SCH ×2 (08:36→21:23)
--- NOTE | 2019-02-12 08:39 | PCM.PREANE ---
Preanesthetic Assessment - Procedure Proposed Procedure: Right Femur Nailing/Vaughn - Anesthesia/Transfusion/Family Hx Anesthesia History: Prior Anesthesia Without Reaction Family History of Anesthesia Reaction: No Transfusion History: No Prior Transfusion(s) - Review of Systems General: Weakness Pulmonary: No Symptoms Cardiovascular: No Symptoms, Other (Has taken care of her for the last 5 years. Brings groceries in the house does house work. Hypertension controlled with medications. ) Gastrointestinal: No Symptoms (History of a narrow color per patient. ) Neurological: Pre-Existing Deficit (Chronic back pain/spasms. Fibromyalgia. ) Other: Reports: None (Chronic dry mouth. ), Diabetes (Type II, on insulin.) - Physical Assessment NPO Status Date: 02/12/19 NPO Status Time: 00:00 Pulse: 73 O2 Sat by Pulse Oximetry: 97 Respiratory Rate: 18 Blood Pressure: 118/73 Temperature: 36.7 C Vital Signs: Last Vital Signs Temp 36.7 C 02/12/19 03:29 Pulse 73 02/12/19 03:29 Resp 18 02/12/19 03:29 BP 118/73 02/12/19 03:29 Pulse Ox 97 02/12/19 03:29 Height: 1.7 m Weight: 78.018 kg ASA Class: 2 Mental Status: Alert & Oriented x3 Airway Class: Mallampati = 2 Dentition: Reports: Broken Tooth/Teeth, Caries (Discolored. Cracked filling on the left lower. Multiple missing fillings. Just had her teeth cleaned last week. ) Thyro-Mental Finger Breadths: 2 Mouth Opening Finger Breadths: 3 ROM/Head Extension: Full Lungs: Clear to Auscultation, Normal Respiratory Effort, Decreased Breath Sounds Cardiovascular: Regular Rate, Regular Rhythm - Lab Values: Laboratory Last Values WBC 13.99 K/mm3 (3.98-10.04) H 02/12/19 06:18 RBC 4.45 M/mm3 (3.98-5.22) 02/12/19 06:18 Hgb 12.3 gm/L (11.2-15.7) 02/12/19 06:18 Hct 38.7 % (34.1-44.9) 02/12/19 06:18 MCV 87.0 fl (79.4-94.8) 02/12/19 06:18 MCH 27.6 pg (25.6-32.2) 02/12/19 06:18 MCHC 31.8 g/dl (32.2-35.5) L 02/12/19 06:18 RDW Std Deviation 44.2 fL (36.4-46.3) 02/12/19 06:18 Plt Count 204 K/mm3 (182-369) 02/12/19 06:18 MPV 12.0 fl (9.4-12.3) 02/12/19 06:18 Neut % (Auto) 79.8 % (34.0-71.1) H 02/12/19 06:18 Lymph % (Auto) 10.0 % (19.3-51.7) L 02/12/19 06:18 [place] % (Auto) 7.9 % (4.7-12.5) 02/12/19 06:18 Eos % (Auto) 2.0 (0.7-5.8) 02/12/19 06:18 Baso % (Auto) 0.1 % (0.1-1.2) 02/12/19 06:18 Neut # (Auto) 11.16 K/mm3 (1.56-6.13) H 02/12/19 06:18 Lymph # (Auto) 1.40 K/mm3 (1.18-3.74) 02/12/19 06:18 [place] # (Auto) 1.11 K/mm3 (0.24-0.36) H 02/12/19 06:18 Eos # (Auto) 0.28 K/mm3 (0.04-0.36) 02/12/19 06:18 Baso # (Auto) 0.01 K/mm3 (0.01-0.08) 02/12/19 06:18 Neutrophils % (Manual) 89 % (40-60) H 02/11/19 16:08 Band Neutrophils % 0 % (0-10) 02/11/19 16:08 Lymphocytes % (Manual) 8 % (20-40) L 02/11/19 16:08 Atypical Lymphs % 0 % 02/11/19 16:08 Monocytes % (Manual) 2 % (2-10) 02/11/19 16:08 Eosinophils % (Manual) 1 % (0.7-5.8) 02/11/19 16:08 Basophils % (Manual) 0 (0.1-1.2) L 02/11/19 16:08 Platelet Estimate Adequate 02/11/19 16:08 RBC Morph Comment Normal 02/11/19 16:08 PT 11.2 SECONDS (9.5-12.1) 02/12/19 06:18 INR 1.03 02/12/19 06:18 APTT 30 SECONDS (24-31) 02/12/19 06:18 Sodium 139 mEq/L (136-145) 02/12/19 06:18 Potassium 3.8 mEq/L (3.5-5.1) 02/12/19 06:18 Chloride 104 mEq/L (98-107) 02/12/19 06:18 Carbon Dioxide 28 mEq/L (21-32) 02/12/19 06:18 Anion Gap 10.8 (5-15) 02/12/19 06:18 BUN 17 mg/dL (7-18) 02/12/19 06:18 Creatinine 0.7 mg/dL (0.55-1.02) 02/12/19 06:18 Est Cr Clr Drug Dosing 63.37 mL/min 02/12/19 06:18 Estimated GFR (MDRD) > 60 mL/min (>60) 02/12/19 06:18 BUN/Creatinine Ratio 24.3 (14-18) H 02/12/19 06:18 Glucose 110 mg/dL (83-115) 02/12/19 06:18 POC Glucose 115 mg/dL (83-110) H 02/12/19 07:22 Calcium 9.0 mg/dL (8.5-10.1) 02/12/19 06:18 Magnesium 1.8 mg/dl (1.8-2.4) 02/12/19 06:18 Total Bilirubin 0.3 mg/dL (0.2-1.0) 02/11/19 16:08 AST 20 U/L (15-37) 02/11/19 16:08 ALT 24 U/L (14-59) 02/11/19 16:08 Alkaline Phosphatase 116 U/L (46-116) 02/11/19 16:08 C-Reactive Protein 3.2 mg/dL (<1.0) H* 02/12/19 06:18 Total Protein 7.1 g/dl (6.4-8.2) 02/11/19 16:08 Albumin 3.5 g/dl (3.4-5.0) 02/11/19 16:08 Globulin 3.6 gm/dL 02/11/19 16:08 Albumin/Globulin Ratio 1.0 (1-2) 02/11/19 16:08 Urine Color Yellow (Yellow) 02/12/19 00:40 Urine Appearance Slt cloudy (Clear) H 02/12/19 00:40 Urine pH 6.0 (5.0-8.0) 02/12/19 00:40 Ur Specific [place] 1.025 (1.005-1.030) 02/12/19 00:40 Urine Protein Trace (Negative) H 02/12/19 00:40 Urine Glucose (UA) Negative (Negative) 02/12/19 00:40 Urine Ketones 1+ (Negative) H 02/12/19 00:40 Urine Occult Blood Negative (Negative) 02/12/19 00:40 Urine Nitrite Negative (Negative) 02/12/19 00:40 Urine Bilirubin Negative (Negative) 02/12/19 00:40 Urine Urobilinogen 1.0 (0.2-1.0) 02/12/19 00:40 Ur Leukocyte Esterase Negative (Negative) 02/12/19 00:40 Urine RBC Not seen /hpf (0-5) 02/12/19 00:40 Urine WBC Not seen /hpf (0-5) 02/12/19 00:40 Ur Epithelial Cells Not seen /hpf (0-5) 02/12/19 00:40 Urine Bacteria Rare /hpf (FEW) 02/12/19 00:40 Hyaline Casts 0-5 /lpf (0-5) 02/12/19 00:40 Urine Mucus Rare /hpf (FEW) H 02/12/19 00:40 MRSA (PCR) Negative 02/12/19 03:35 Blood Type O POSITIVE 02/11/19 16:08 Gel Antibody Screen Negative 02/11/19 16:08 - Allergies Allergies/Adverse Reactions: Allergies Allergy/AdvReac Type Severity Reaction Status Date / Time oxycodone [Oxycodone] Allergy Rash Verified 02/11/19 15:17 pioglitazone Allergy Swelling Verified 02/11/19 15:17 rosiglitazone [Rosiglitazone] Allergy Swelling Verified 02/11/19 15:17 - Anesthesia Plan Beta Heidi: Metoprolol Med Last Dose Date: 02/12/19 Med Last Dose Time: 08:36 - Acknowledgements Anesthesia Type Planned: Spinal Pt an Appropriate Candidate for the Planned Anesthesia: Yes Alternatives and Risks of Anesthesia Discussed w Pt/Guardian: Yes Pt/Guardian Understands and Agrees with Anesthesia Plan: Yes PreAnesthesia Questionnaire HEENT History: Reports: Impaired Vision Other HEENT History: pt wears glasses Cardiovascular History: Reports: Hypertension Gastrointestinal History: Reports: Other (See Below) Other Gastrointestinal History: "colon trouble"-per pt. was told to watch for a torsion, she stated her colon pointed GENERAL CLAIMS AGENT History: Reports: Musculoskeletal History: Reports: Arthritis, Back Pain, Chronic, Fibromyalgia, Osteoarthritis, Other (See Below) Other Musculoskeletal History: chronic knee pain Endocrine/Metabolic History: Reports: Diabetes, Type II - Infectious Disease History Infectious Disease History: Reports: Chicken Pox, Measles - Past Surgical History GI Surgical History: Reports: Cholecystectomy Female Surgical History: Reports: Hysterectomy - SUBSTANCE USE Smoking Status *Q: Never Smoker Second Hand Smoke Exposure: No Recreational Drug Use History: No - HOME MEDS Home Medications: Home Meds Calcium Carbonate/Vitamin D3 [Caltrate 600 Plus D3 Tablet] 600 mg PO DAILY 09/28 [History] Furosemide [Lasix] 20 mg PO DAILY 09/28/14 [History] Gabapentin [Neurontin] 600 mg PO TID 09/28/14 [History] Insulin Lispro [Humalog] See Protocol SQ DAILY 09/28/14 [History] Losartan [Cozaar] 50 mg PO DAILY 09/28/14 [History] Ubidecarenone [Co Q-10] 100 mg PO DAILY 09/28/14 [History] Zinc Gluconate [Zinc] 50 mg PO DAILY 09/28/14 [History] traMADol [Ultram] 50 mg PO Q6H PRN 09/28/14 [History] [place] 9-Ejlyymeot-Mujvpju E 1,000 mg PO BID 02/13/15 [History] Cholecalciferol (Vitamin D3) [Vitamin D3] 2,000 unit PO DAILY 07/19/17 [History] Cyclobenzaprine [Flexeril] 10 mg PO BID 07/19/17 [History] DULoxetine [Cymbalta] 30 mg PO DAILY 07/19/17 [History] Metoprolol Tartrate [Lopressor] 50 mg PO BID 07/19/17 [History] Simvastatin [Zocor] 20 mg PO BEDTIME 02/10/18 [History] Cbd Oil 10 drop PO TID 02/11/19 [History] Insulin Glarg,Human.Rec.Analog [Lantus Solostar] 32 unit SUBCUT DAILY 02/11/19 [ History] - CURRENT (IN HOUSE) MEDS Current Meds: Current Medications Hydrocodone Bitart/Acetaminophen (Breeding 325-5 Mg) 1 tab PO Q6H PRN PRN Reason: Pain (moderate 4-6) Last Admin: 02/11/19 20:44 Dose: 1 tab Cyclobenzaprine HCl (Flexeril) 10 mg PO BID [facility] Last Admin: 02/11/19 20:44 Dose: 10 mg Dextrose/Water (Dextrose 50% In Water) 50 ml IVPUSH ASDIRECTED PRN PRN Reason: Hypoglycemia Duloxetine HCl (Cymbalta) 30 mg PO DAILY [facility] Enoxaparin Sodium (Lovenox) 30 mg SUBCUT Q24H [facility] Gabapentin (Neurontin) 600 mg PO TID [facility] Last Admin: 02/11/19 20:44 Dose: 600 mg Hydromorphone HCl (Dilaudid) 0.5 mg IVPUSH Q8H PRN PRN Reason: Pain (severe 7-10) Last Admin: 02/12/19 00:38 Dose: 0.5 mg Insulin Human Lispro (Humalog) 0 unit SUBCUT QIDACANDBED [facility]; Protocol Last Admin: 02/12/19 07:44 Dose: Not Given Metoprolol Tartrate (Lopressor) 50 mg PO BID [facility] Last Admin: 02/11/19 20:45 Dose: 50 mg Ondansetron HCl (Zofran) 4 mg IVPUSH Q8H PRN PRN Reason: Nausea/Vomiting Simvastatin (Zocor) 20 mg PO BEDTIME [facility] Last Admin: 02/11/19 20:45 Dose: 20 mg Tramadol HCl (Ultram) 50 mg PO Q6H PRN PRN Reason: Pain Discontinued Medications Hydromorphone HCl (Dilaudid) 0.5 mg IVPUSH ONETIME ONE Stop: 02/11/19 15:48 Last Admin: 02/11/19 15:57 Dose: 0.5 mg Hydromorphone HCl (Dilaudid) 0.5 mg IVPUSH ONETIME ONE Stop: 02/11/19 17:25 Last Admin: 02/11/19 17:36 Dose: 0.5 mg Lactated Ringer's (Ringers, Lactated) 1,000 mls @ 100 mls/hr IV ASDIRECTED [facility] Last Admin: 02/12/19 00:30 Dose: 100 mls/hr
[2019-02-12] MEDS: Acetaminophen/HYDROcodone 325-5 MG Tab PO PRN ×2 (08:49→18:00)
[2019-02-12] MEDS: DULoxetine 30 MG Cap PO SCH (09:11)
[2019-02-12] MEDS: Gabapentin 300 MG Cap PO SCH ×3 (09:11→21:23)
[2019-02-12] MEDS: Cyclobenzaprine 10 MG Tab PO SCH ×2 (09:11→21:24)
[2019-02-12] MEDS ORDERED: Propofol 200 MG/20 ML SDV ONE (09:24)
[2019-02-12] MEDS ORDERED: Lidocaine 1% 6 ML ONE (09:25)
[2019-02-12] MEDS ORDERED: fentaNYL 100 MCG/2 ML SDV ONE ×2 (09:25→13:20)
[2019-02-12] MEDS ORDERED: Morphine PF 10 MG/10 ML SDV ONE (09:25)
[2019-02-12] MEDS ORDERED: Ondansetron 4 MG/2 ML SDV ONE (09:26)
--- NOTE | 2019-02-12 11:06 | PCM.CONS ---
H&P History of Present Illness - General Date of Service: 02/12/19 Admit Problem/Dx: Admission Diagnosis/Problem Admission Diagnosis/Problem Hip fracture, intertrochanteric History Limitations: Reports: No Limitations - History of Present Illness Initial Comments - Free Text/Narative: This is a 78 year old female who is known to me previously with a new injury to her right hip. She fell in a parking lot getting out of her vehicle landing on her right hip. Patient was unable to bear weight on her right lower extremity after this and was taken to the ED where she was found to have a right intertrochanteric hip fracture. She was admitted by the hospitalist for hopeful surgery today. She denies any other pain or injury at this time and did not have previous pain to her right hip before this fall. She lives independently and does not use ambulatory assistive devices. Right Hip Pain Score (Numeric/FACES): 8 - Related Data Allergies/Adverse Reactions: Allergies Allergy/AdvReac Type Severity Reaction Status Date / Time oxycodone [Oxycodone] Allergy Rash Verified 02/11/19 15:17 pioglitazone Allergy Swelling Verified 02/11/19 15:17 rosiglitazone [Rosiglitazone] Allergy Swelling Verified 02/11/19 15:17 Home Medications: Home Meds Calcium Carbonate/Vitamin D3 [Caltrate 600 Plus D3 Tablet] 600 mg PO DAILY 09/28 [History] Furosemide [Lasix] 20 mg PO DAILY 09/28/14 [History] Gabapentin [Neurontin] 600 mg PO TID 09/28/14 [History] Insulin Lispro [Humalog] See Protocol SQ DAILY 09/28/14 [History] Losartan [Cozaar] 50 mg PO DAILY 09/28/14 [History] Ubidecarenone [Co Q-10] 100 mg PO DAILY 09/28/14 [History] Zinc Gluconate [Zinc] 50 mg PO DAILY 09/28/14 [History] traMADol [Ultram] 50 mg PO Q6H PRN 09/28/14 [History] [place] 3-Ddepugplu-Tultybu E 1,000 mg PO BID 02/13/15 [History] Cholecalciferol (Vitamin D3) [Vitamin D3] 2,000 unit PO DAILY 07/19/17 [History] Cyclobenzaprine [Flexeril] 10 mg PO BID 07/19/17 [History] DULoxetine [Cymbalta] 30 mg PO DAILY 07/19/17 [History] Metoprolol Tartrate [Lopressor] 50 mg PO BID 07/19/17 [History] Simvastatin [Zocor] 20 mg PO BEDTIME 02/10/18 [History] Cbd Oil 10 drop PO TID 02/11/19 [History] Insulin Glarg,Human.Rec.Analog [Lantus Solostar] 32 unit SUBCUT DAILY 02/11/19 [ History] Past Medical History HEENT History: Reports: Impaired Vision Other HEENT History: pt wears glasses Cardiovascular History: Reports: Hypertension Gastrointestinal History: Reports: Other (See Below) Other Gastrointestinal History: "colon trouble"-per pt. was told to watch for a torsion, she stated her colon pointed HELP AID History: Reports: Musculoskeletal History: Reports: Arthritis, Back Pain, Chronic, Fibromyalgia, Osteoarthritis, Other (See Below) Other Musculoskeletal History: chronic knee pain Endocrine/Metabolic History: Reports: Diabetes, Type II - Infectious Disease History Infectious Disease History: Reports: Chicken Pox, Measles - Past Surgical History GI Surgical History: Reports: Cholecystectomy Female Surgical History: Reports: Hysterectomy Social & Family History - Family History Family Medical History: Noncontributory - Tobacco Use Smoking Status *Q: Never Smoker Second Hand Smoke Exposure: No - Caffeine Use Caffeine Use: Reports: Coffee Other Caffeine Use: 4 -5 cups a day - Recreational Drug Use Recreational Drug Use: No H&P Review of Systems - Review of Systems: Review Of Systems: ROS reveals no pertinent complaints other than HPI. Exam - Exam Exam: See Below - Vital Signs Vital Signs: Last Vital Signs Temp 36.7 C 02/12/19 10:16 Pulse 73 02/12/19 10:16 Resp 18 02/12/19 10:16 BP 118/73 02/12/19 10:16 Pulse Ox 97 02/12/19 10:16 Weight: 78.018 kg - Exam Physical Exam Comments:: Pelvis: stable to ap and lateral compression RLE: no tenderness to right knee or tibia, able to dorsiflex and plantarflex the right ankle and great toe, neurovascularly intact to the medial, lateral, plantar, first dorsal web space, less than 2 second capillary refill, right lower extremity is shortened and externally rotated, skin is intact to right hip - Patient Data Lab Results Last 24 hrs: Laboratory Results - last 24 hr 02/11/19 02/11/19 02/11/19 Range/Units 16:08 16:08 16:08 WBC 13.81 H (3.98-10.04) K/mm3 RBC 4.82 (3.98-5.22) M/mm3 Hgb 13.3 (11.2-15.7) gm/L Hct 41.9 (34.1-44.9) % MCV 86.9 (79.4-94.8) fl MCH 27.6 (25.6-32.2) pg MCHC 31.7 L (32.2-35.5) g/dl RDW Std Deviation 44.0 (36.4-46.3) fL Plt Count 229 (182-369) K/mm3 MPV 11.3 (9.4-12.3) fl Neut % (Auto) (34.0-71.1) % Lymph % (Auto) (19.3-51.7) % [place] % (Auto) (4.7-12.5) % Eos % (Auto) (0.7-5.8) Baso % (Auto) (0.1-1.2) % Neut # (Auto) (1.56-6.13) K/mm3 Lymph # (Auto) (1.18-3.74) K/mm3 [place] # (Auto) (0.24-0.36) K/mm3 Eos # (Auto) (0.04-0.36) K/mm3 Baso # (Auto) (0.01-0.08) K/mm3 Neutrophils % (Manual) 89 H (40-60) % Band Neutrophils % 0 (0-10) % Lymphocytes % (Manual) 8 L (20-40) % Atypical Lymphs % 0 % Monocytes % (Manual) 2 (2-10) % Eosinophils % (Manual) 1 (0.7-5.8) % Basophils % (Manual) 0 L (0.1-1.2) Platelet Estimate Adequate RBC Morph Comment Normal PT (9.5-12.1) SECONDS INR APTT (24-31) SECONDS Sodium 140 (136-145) mEq/L Potassium 3.8 (3.5-5.1) mEq/L Chloride 102 (98-107) mEq/L Carbon Dioxide 30 (21-32) mEq/L Anion Gap 11.8 (5-15) BUN 22 H (7-18) mg/dL Creatinine 1.0 (0.55-1.02) mg/dL Est Cr Clr Drug Dosing 44.36 mL/min Estimated GFR (MDRD) 53 (>60) mL/min BUN/Creatinine Ratio 22.0 H (14-18) Glucose 115 (83-115) mg/dL POC Glucose (83-110) mg/dL Calcium 9.7 (8.5-10.1) mg/dL Magnesium (1.8-2.4) mg/dl Total Bilirubin 0.3 (0.2-1.0) mg/dL AST 20 (15-37) U/L ALT 24 (14-59) U/L Alkaline Phosphatase 116 (46-116) U/L C-Reactive Protein (<1.0) mg/dL Total Protein 7.1 (6.4-8.2) g/dl Albumin 3.5 (3.4-5.0) g/dl Globulin 3.6 gm/dL Albumin/Globulin Ratio 1.0 (1-2) Urine Color (Yellow) Urine Appearance (Clear) Urine pH (5.0-8.0) Ur Specific [place] (1.005-1.030) Urine Protein (Negative) Urine Glucose (UA) (Negative) Urine Ketones (Negative) Urine Occult Blood (Negative) Urine Nitrite (Negative) Urine Bilirubin (Negative) Urine Urobilinogen (0.2-1.0) Ur Leukocyte Esterase (Negative) Urine RBC (0-5) /hpf Urine WBC (0-5) /hpf Ur Epithelial Cells (0-5) /hpf Urine Bacteria (FEW) /hpf Hyaline Casts (0-5) /lpf Urine Mucus (FEW) /hpf MRSA (PCR) Blood Type O POSITIVE Gel Antibody Screen Negative 02/12/19 02/12/19 02/12/19 Range/Units 00:40 03:35 06:18 WBC 13.99 H (3.98-10.04) K/mm3 RBC 4.45 (3.98-5.22) M/mm3 Hgb 12.3 (11.2-15.7) gm/L Hct 38.7 (34.1-44.9) % MCV 87.0 (79.4-94.8) fl MCH 27.6 (25.6-32.2) pg MCHC 31.8 L (32.2-35.5) g/dl RDW Std Deviation 44.2 (36.4-46.3) fL Plt Count 204 (182-369) K/mm3 MPV 12.0 (9.4-12.3) fl Neut % (Auto) 79.8 H (34.0-71.1) % Lymph % (Auto) 10.0 L (19.3-51.7) % [place] % (Auto) 7.9 (4.7-12.5) % Eos % (Auto) 2.0 (0.7-5.8) Baso % (Auto) 0.1 (0.1-1.2) % Neut # (Auto) 11.16 H (1.56-6.13) K/mm3 Lymph # (Auto) 1.40 (1.18-3.74) K/mm3 [place] # (Auto) 1.11 H (0.24-0.36) K/mm3 Eos # (Auto) 0.28 (0.04-0.36) K/mm3 Baso # (Auto) 0.01 (0.01-0.08) K/mm3 Neutrophils % (Manual) (40-60) % Band Neutrophils % (0-10) % Lymphocytes % (Manual) (20-40) % Atypical Lymphs % % Monocytes % (Manual) (2-10) % Eosinophils % (Manual) (0.7-5.8) % Basophils % (Manual) (0.1-1.2) Platelet Estimate RBC Morph Comment PT (9.5-12.1) SECONDS INR APTT (24-31) SECONDS Sodium (136-145) mEq/L Potassium (3.5-5.1) mEq/L Chloride (98-107) mEq/L Carbon Dioxide (21-32) mEq/L Anion Gap (5-15) BUN (7-18) mg/dL Creatinine (0.55-1.02) mg/dL Est Cr Clr Drug Dosing mL/min Estimated GFR (MDRD) (>60) mL/min BUN/Creatinine Ratio (14-18) Glucose (83-115) mg/dL POC Glucose (83-110) mg/dL Calcium (8.5-10.1) mg/dL Magnesium (1.8-2.4) mg/dl Total Bilirubin (0.2-1.0) mg/dL AST (15-37) U/L ALT (14-59) U/L Alkaline Phosphatase (46-116) U/L C-Reactive Protein (<1.0) mg/dL Total Protein (6.4-8.2) g/dl Albumin (3.4-5.0) g/dl Globulin gm/dL Albumin/Globulin Ratio (1-2) Urine Color Yellow (Yellow) Urine Appearance Slt cloudy H (Clear) Urine pH 6.0 (5.0-8.0) Ur Specific [place] 1.025 (1.005-1.030) Urine Protein Trace H (Negative) Urine Glucose (UA) Negative (Negative) Urine Ketones 1+ H (Negative) Urine Occult Blood Negative (Negative) Urine Nitrite Negative (Negative) Urine Bilirubin Negative (Negative) Urine Urobilinogen 1.0 (0.2-1.0) Ur Leukocyte Esterase Negative (Negative) Urine RBC Not seen (0-5) /hpf Urine WBC Not seen (0-5) /hpf Ur Epithelial Cells Not seen (0-5) /hpf Urine Bacteria Rare (FEW) /hpf Hyaline Casts 0-5 (0-5) /lpf Urine Mucus Rare H (FEW) /hpf MRSA (PCR) Negative Blood Type Gel Antibody Screen 02/12/19 02/12/19 02/12/19 Range/Units 06:18 06:18 06:18 WBC (3.98-10.04) K/mm3 RBC (3.98-5.22) M/mm3 Hgb (11.2-15.7) gm/L Hct (34.1-44.9) % MCV (79.4-94.8) fl MCH (25.6-32.2) pg MCHC (32.2-35.5) g/dl RDW Std Deviation (36.4-46.3) fL Plt Count (182-369) K/mm3 MPV (9.4-12.3) fl Neut % (Auto) (34.0-71.1) % Lymph % (Auto) (19.3-51.7) % [place] % (Auto) (4.7-12.5) % Eos % (Auto) (0.7-5.8) Baso % (Auto) (0.1-1.2) % Neut # (Auto) (1.56-6.13) K/mm3 Lymph # (Auto) (1.18-3.74) K/mm3 [place] # (Auto) (0.24-0.36) K/mm3 Eos # (Auto) (0.04-0.36) K/mm3 Baso # (Auto) (0.01-0.08) K/mm3 Neutrophils % (Manual) (40-60) % Band Neutrophils % (0-10) % Lymphocytes % (Manual) (20-40) % Atypical Lymphs % % Monocytes % (Manual) (2-10) % Eosinophils % (Manual) (0.7-5.8) % Basophils % (Manual) (0.1-1.2) Platelet Estimate RBC Morph Comment PT 11.2 (9.5-12.1) SECONDS INR 1.03 APTT 30 (24-31) SECONDS Sodium 139 (136-145) mEq/L Potassium 3.8 (3.5-5.1) mEq/L Chloride 104 (98-107) mEq/L Carbon Dioxide 28 (21-32) mEq/L Anion Gap 10.8 (5-15) BUN 17 (7-18) mg/dL Creatinine 0.7 (0.55-1.02) mg/dL Est Cr Clr Drug Dosing 63.37 mL/min Estimated GFR (MDRD) > 60 (>60) mL/min BUN/Creatinine Ratio 24.3 H (14-18) Glucose 110 (83-115) mg/dL POC Glucose (83-110) mg/dL Calcium 9.0 (8.5-10.1) mg/dL Magnesium 1.8 (1.8-2.4) mg/dl Total Bilirubin (0.2-1.0) mg/dL AST (15-37) U/L ALT (14-59) U/L Alkaline Phosphatase (46-116) U/L C-Reactive Protein 3.2 H* (<1.0) mg/dL Total Protein (6.4-8.2) g/dl Albumin (3.4-5.0) g/dl Globulin gm/dL Albumin/Globulin Ratio (1-2) Urine Color (Yellow) Urine Appearance (Clear) Urine pH (5.0-8.0) Ur Specific [place] (1.005-1.030) Urine Protein (Negative) Urine Glucose (UA) (Negative) Urine Ketones (Negative) Urine Occult Blood (Negative) Urine Nitrite (Negative) Urine Bilirubin (Negative) Urine Urobilinogen (0.2-1.0) Ur Leukocyte Esterase (Negative) Urine RBC (0-5) /hpf Urine WBC (0-5) /hpf Ur Epithelial Cells (0-5) /hpf Urine Bacteria (FEW) /hpf Hyaline Casts (0-5) /lpf Urine Mucus (FEW) /hpf MRSA (PCR) Blood Type Gel Antibody Screen 02/12/19 Range/Units 07:22 WBC (3.98-10.04) K/mm3 RBC (3.98-5.22) M/mm3 Hgb (11.2-15.7) gm/L Hct (34.1-44.9) % MCV (79.4-94.8) fl MCH (25.6-32.2) pg MCHC (32.2-35.5) g/dl RDW Std Deviation (36.4-46.3) fL Plt Count (182-369) K/mm3 MPV (9.4-12.3) fl Neut % (Auto) (34.0-71.1) % Lymph % (Auto) (19.3-51.7) % [place] % (Auto) (4.7-12.5) % Eos % (Auto) (0.7-5.8) Baso % (Auto) (0.1-1.2) % Neut # (Auto) (1.56-6.13) K/mm3 Lymph # (Auto) (1.18-3.74) K/mm3 [place] # (Auto) (0.24-0.36) K/mm3 Eos # (Auto) (0.04-0.36) K/mm3 Baso # (Auto) (0.01-0.08) K/mm3 Neutrophils % (Manual) (40-60) % Band Neutrophils % (0-10) % Lymphocytes % (Manual) (20-40) % Atypical Lymphs % % Monocytes % (Manual) (2-10) % Eosinophils % (Manual) (0.7-5.8) % Basophils % (Manual) (0.1-1.2) Platelet Estimate RBC Morph Comment PT (9.5-12.1) SECONDS INR APTT (24-31) SECONDS Sodium (136-145) mEq/L Potassium (3.5-5.1) mEq/L Chloride (98-107) mEq/L Carbon Dioxide (21-32) mEq/L Anion Gap (5-15) BUN (7-18) mg/dL Creatinine (0.55-1.02) mg/dL Est Cr Clr Drug Dosing mL/min Estimated GFR (MDRD) (>60) mL/min BUN/Creatinine Ratio (14-18) Glucose (83-115) mg/dL POC Glucose 115 H (83-110) mg/dL Calcium (8.5-10.1) mg/dL Magnesium (1.8-2.4) mg/dl Total Bilirubin (0.2-1.0) mg/dL AST (15-37) U/L ALT (14-59) U/L Alkaline Phosphatase (46-116) U/L C-Reactive Protein (<1.0) mg/dL Total Protein (6.4-8.2) g/dl Albumin (3.4-5.0) g/dl Globulin gm/dL Albumin/Globulin Ratio (1-2) Urine Color (Yellow) Urine Appearance (Clear) Urine pH (5.0-8.0) Ur Specific [place] (1.005-1.030) Urine Protein (Negative) Urine Glucose (UA) (Negative) Urine Ketones (Negative) Urine Occult Blood (Negative) Urine Nitrite (Negative) Urine Bilirubin (Negative) Urine Urobilinogen (0.2-1.0) Ur Leukocyte Esterase (Negative) Urine RBC (0-5) /hpf Urine WBC (0-5) /hpf Ur Epithelial Cells (0-5) /hpf Urine Bacteria (FEW) /hpf Hyaline Casts (0-5) /lpf Urine Mucus (FEW) /hpf MRSA (PCR) Blood Type Gel Antibody Screen Result Diagrams: 02/12/19 06:18 02/12/19 06:18 Consult PN Assessment/Plan Procedures: Procedures APPLY FOREARM SPLINT (07/19/17) ASSAY GLUCOSE BLOOD QUANT (09/28/14) ASSAY OF TROPONIN QUANT (02/13/15) CHEST X-RAY 1 VIEW FRONTAL (02/13/15) COMPLETE CBC W/AUTO DIFF WBC (02/13/15) COMPREHEN METABOLIC PANEL (02/13/15) CT ABD & PELV W/CONTRAST (02/13/15) CT THORAX W/DYE (02/13/15) DRAIN/INJ JOINT/BURSA W/O US (02/10/18) ELECTROCARDIOGRAM TRACING (02/13/15) EMERGENCY DEPT VISIT (02/10/18) EMERGENCY DEPT VISIT (07/19/17) EMERGENCY DEPT VISIT (09/28/14) GAIT TRAINING THERAPY (02/13/15) GLUCOSE BLOOD TEST (02/13/15) IMMUNIZATION ADMIN (07/19/17) PT EVALUATION (02/13/15) ROUTINE VENIPUNCTURE (02/13/15) TDAP VACCINE 7 YRS/> IM (07/19/17) THER/PROPH/DIAG INJ IV PUSH (02/13/15) THER/PROPH/DIAG INJ SC/IM (07/19/17) TISSUE EXAM BY PATHOLOGIST (09/12/15) TX/PRO/DX INJ NEW DRUG ADDON (02/13/15) TX/PRO/DX INJ SAME DRUG [employer] (02/13/15) X-RAY EXAM KNEE 4 OR MORE (02/10/18) X-RAY EXAM OF SHOULDER (07/19/17) X-RAY EXAM OF TOE(S) (07/19/17) X-RAY EXAM OF WRIST (07/19/17) Problem List Initiated/Reviewed/Updated: Yes Plan: A: right intertrochanteric hip fracture P: I discussed with the patient and her daughter that this is a fracture of necessity and usually requires surgical intervention for mobilization. I also discussed the perioperative risks associated with hip fractures including medical issues. At this time we will plan a cephalomedullary nailing of right intertrochanteric hip fracture. The risks, benefits, complications, and alternatives were discussed and we will proceed with that plan. All questions were sought and answered at this time.
[2019-02-12] MEDS ORDERED: Ketamine 500 mg/10 ML MDV ONE (12:08)
[2019-02-12] MEDS ORDERED: Phenylephrine/Normal Saline 100 MCG/ML 10 ML Syringe ONE (12:14)
[2019-02-12] MEDS ORDERED: ceFAZolin 1 GM Vial ONE (12:24)
[2019-02-12] MEDS: Bupivacaine 0.25% 30 ML SDV ONE ×2 (13:05→13:20)
[2019-02-12] MEDS ORDERED: Bupivacaine 0.75% 30 ML SDV ONE (13:20)
[2019-02-12] MEDS ORDERED: ePHEDrine/Normal Saline 25 MG/5 ML Syringe ONE (13:40)
--- NOTE | 2019-02-12 13:51 | PCM.POSTAN ---
POST ANESTHESIA ASSESSMENT - MENTAL STATUS Mental Status: Other (drowsy) - VITAL SIGNS Pulse Rate: 63 SaO2: 100 Resp Rate: 63 Blood Pressure: 84/39 Temperature: 36.4 C - RESPIRATORY Respiratory Status: Respiratory Rate WNL, Airway Patent, O2 Saturation Stable, Supplemental Oxygen - CARDIOVASCULAR CV Status: Pulse Rate WNL, Low Blood Pressure (being treated with fluid ) - GASTROINTESTINAL GI Status: No Symptoms - POST OP HYDRATION Hydration Status: Hypovolemic
[2019-02-12] MEDS ORDERED: fentaNYL 100 MCG/2 ML SDV IVPUSH PRN (13:52)
[2019-02-12] MEDS ORDERED: Ondansetron 4 MG/2 ML SDV IVPUSH PRN (13:52)
[2019-02-12] MEDS ORDERED: diphenhydrAMINE 50 MG/ML SDV IVPUSH PRN (13:52)
--- NOTE | 2019-02-12 14:28 | CR ---
Right hip: Five views of the right hip were obtained. Comparison: Previous right hip x-ray of 02/11/19. Study shows reduction and fixation of previous intertrochanteric fracture. Final film shows compression screw and short intramedullary leo in place. Fluoroscopy time is given as 69.6 seconds. Impression: 1. Procedural study as described above. Diagnostic code #2
[2019-02-12] MEDS ORDERED: Enoxaparin 30 MG/0.3 ML Syringe SUBCUT SCH (17:00)
[2019-02-12] MEDS: ceFAZolin 2 GM in Premix Bag 1 BAG IV SCH (21:17)
[2019-02-12] MEDS: Simvastatin 20 MG Tab PO SCH (21:23)
[2019-02-13] MEDS: ceFAZolin 2 GM in Premix Bag 1 BAG IV SCH ×2 (04:58→13:17)
[2019-02-13] MEDS: Acetaminophen/HYDROcodone 325-5 MG Tab PO PRN (05:42)
--- NOTE | 2019-02-13 09:20 | PCM48HPAN ---
Post Anesthesia Note - EVALUATION WITHIN 48HRS OF ANESTHETIC Vital Signs in Normal Range: Yes Patient Participated in Evaluation: Yes Respiratory Function Stable: Yes Airway Patent: Yes Cardiovascular Function Stable: Yes Hydration Status Stable: Yes Pain Control Satisfactory: Yes Nausea and Vomiting Control Satisfactory: Yes Mental Status Recovered: Yes - COMMENTS/OBSERVATIONS Free Text/Narrative:: Chart reviewed, no complications noted.
[2019-02-13] MEDS: DULoxetine 30 MG Cap PO SCH (09:44)
[2019-02-13] MEDS: Gabapentin 300 MG Cap PO SCH ×3 (09:45→21:56)
[2019-02-13] MEDS: Cyclobenzaprine 10 MG Tab PO SCH ×2 (09:46→21:56)
[2019-02-13] MEDS: Aspirin 325 MG Tab.EC PO SCH ×2 (09:48→21:57)
[2019-02-13] MEDS: Metoprolol Tartrate 50 MG Tab PO SCH ×2 (09:48→21:57)
[2019-02-13] MEDS: Insulin Glarg,Human.Rec.Analog 100 UNIT/ML ML SUBCUT SCH (09:50)
[2019-02-13] MEDS: Insulin Lispro 100 Units/ML 3 ML Vial SUBCUT SCH ×4 (09:51→22:53)
[2019-02-13] MEDS ORDERED: Magnesium Sulfate/Water 2 GM in Premix Bag 1 BAG IV ONE (10:39)
--- NOTE | 2019-02-13 17:47 | PCM.PN ---
- General Info Date of Service: 02/13/19 Functional Status: Reports: Pain Controlled, Tolerating Diet, Ambulating, Urinating - Review of Systems General: Reports: No Symptoms HEENT: Reports: No Symptoms Pulmonary: Reports: No Symptoms Cardiovascular: Reports: No Symptoms Genitourinary: Reports: No Symptoms Musculoskeletal: Reports: No Symptoms Skin: Reports: No Symptoms Neurological: Reports: No Symptoms Psychiatric: Reports: No Symptoms - Patient Data Vitals - Most Recent: Last Vital Signs Temp 37.6 C 02/13/19 16:14 Pulse 71 02/13/19 16:14 Resp 18 02/13/19 16:14 BP 128/78 02/13/19 16:14 Pulse Ox 92 L 02/13/19 16:14 Weight - Most Recent: 78.744 kg I&O - Last 24 Hours: Intake & Output 02/13/19 02/13/19 02/13/19 06:59 14:59 22:59 Intake Total 700 590 850 Output Total 950 1100 Balance -250 590 -250 Lab Results Last 24 Hours: Laboratory Results - last 24 hr 02/12/19 02/12/19 02/13/19 Range/Units 17:52 21:01 05:42 WBC 14.05 H (3.98-10.04) K/mm3 RBC 4.09 (3.98-5.22) M/mm3 Hgb 11.2 (11.2-15.7) gm/L Hct 36.0 (34.1-44.9) % MCV 88.0 (79.4-94.8) fl MCH 27.4 (25.6-32.2) pg MCHC 31.1 L (32.2-35.5) g/dl RDW Std Deviation 44.2 (36.4-46.3) fL Plt Count 165 L (182-369) K/mm3 MPV 12.0 (9.4-12.3) fl Neut % (Auto) 77.9 H (34.0-71.1) % Lymph % (Auto) 8.8 L (19.3-51.7) % [place] % (Auto) 9.5 (4.7-12.5) % Eos % (Auto) 3.4 (0.7-5.8) Baso % (Auto) 0.1 (0.1-1.2) % Neut # (Auto) 10.95 H (1.56-6.13) K/mm3 Lymph # (Auto) 1.23 (1.18-3.74) K/mm3 [place] # (Auto) 1.34 H (0.24-0.36) K/mm3 Eos # (Auto) 0.48 H (0.04-0.36) K/mm3 Baso # (Auto) 0.01 (0.01-0.08) K/mm3 Manual Slide Review Abnormal smear Sodium (136-145) mEq/L Potassium (3.5-5.1) mEq/L Chloride (98-107) mEq/L Carbon Dioxide (21-32) mEq/L Anion Gap (5-15) BUN (7-18) mg/dL Creatinine (0.55-1.02) mg/dL Est Cr Clr Drug Dosing mL/min Estimated GFR (MDRD) (>60) mL/min BUN/Creatinine Ratio (14-18) Glucose (83-115) mg/dL POC Glucose 176 H 229 H (83-110) mg/dL Calcium (8.5-10.1) mg/dL Magnesium (1.8-2.4) mg/dl C-Reactive Protein (<1.0) mg/dL 02/13/19 02/13/19 02/13/19 Range/Units 05:42 05:42 06:45 WBC (3.98-10.04) K/mm3 RBC (3.98-5.22) M/mm3 Hgb (11.2-15.7) gm/L Hct (34.1-44.9) % MCV (79.4-94.8) fl MCH (25.6-32.2) pg MCHC (32.2-35.5) g/dl RDW Std Deviation (36.4-46.3) fL Plt Count (182-369) K/mm3 MPV (9.4-12.3) fl Neut % (Auto) (34.0-71.1) % Lymph % (Auto) (19.3-51.7) % [place] % (Auto) (4.7-12.5) % Eos % (Auto) (0.7-5.8) Baso % (Auto) (0.1-1.2) % Neut # (Auto) (1.56-6.13) K/mm3 Lymph # (Auto) (1.18-3.74) K/mm3 [place] # (Auto) (0.24-0.36) K/mm3 Eos # (Auto) (0.04-0.36) K/mm3 Baso # (Auto) (0.01-0.08) K/mm3 Manual Slide Review Sodium 136 (136-145) mEq/L Potassium 4.1 (3.5-5.1) mEq/L Chloride 102 (98-107) mEq/L Carbon Dioxide 28 (21-32) mEq/L Anion Gap 10.1 (5-15) BUN 13 (7-18) mg/dL Creatinine 0.8 (0.55-1.02) mg/dL Est Cr Clr Drug Dosing 55.45 mL/min Estimated GFR (MDRD) > 60 (>60) mL/min BUN/Creatinine Ratio 16.3 (14-18) Glucose 153 H (83-115) mg/dL POC Glucose 163 H (83-110) mg/dL Calcium 8.7 (8.5-10.1) mg/dL Magnesium 1.7 L (1.8-2.4) mg/dl C-Reactive Protein 11.9 H* (<1.0) mg/dL 02/13/19 02/13/19 Range/Units 13:09 17:40 WBC (3.98-10.04) K/mm3 RBC (3.98-5.22) M/mm3 Hgb (11.2-15.7) gm/L Hct (34.1-44.9) % MCV (79.4-94.8) fl MCH (25.6-32.2) pg MCHC (32.2-35.5) g/dl RDW Std Deviation (36.4-46.3) fL Plt Count (182-369) K/mm3 MPV (9.4-12.3) fl Neut % (Auto) (34.0-71.1) % Lymph % (Auto) (19.3-51.7) % [place] % (Auto) (4.7-12.5) % Eos % (Auto) (0.7-5.8) Baso % (Auto) (0.1-1.2) % Neut # (Auto) (1.56-6.13) K/mm3 Lymph # (Auto) (1.18-3.74) K/mm3 [place] # (Auto) (0.24-0.36) K/mm3 Eos # (Auto) (0.04-0.36) K/mm3 Baso # (Auto) (0.01-0.08) K/mm3 Manual Slide Review Sodium (136-145) mEq/L Potassium (3.5-5.1) mEq/L Chloride (98-107) mEq/L Carbon Dioxide (21-32) mEq/L Anion Gap (5-15) BUN (7-18) mg/dL Creatinine (0.55-1.02) mg/dL Est Cr Clr Drug Dosing mL/min Estimated GFR (MDRD) (>60) mL/min BUN/Creatinine Ratio (14-18) Glucose (83-115) mg/dL POC Glucose 216 H 211 H (83-110) mg/dL Calcium (8.5-10.1) mg/dL Magnesium (1.8-2.4) mg/dl C-Reactive Protein (<1.0) mg/dL Med Orders - Current: Current Medications Hydrocodone Bitart/Acetaminophen ([place] 325-5 Mg) 1 - 2 tab PO Q6H PRN PRN Reason: Pain Last Admin: 02/13/19 05:42 Dose: 2 tab Aspirin (Ecotrin) 325 mg PO BID [facility] Last Admin: 02/13/19 09:48 Dose: 325 mg Cyclobenzaprine HCl (Flexeril) 10 mg PO BID [facility] Last Admin: 02/13/19 09:46 Dose: 10 mg Dextrose/Water (Dextrose 50% In Water) 50 ml IVPUSH ASDIRECTED PRN PRN Reason: Hypoglycemia Duloxetine HCl (Cymbalta) 30 mg PO DAILY [facility] Last Admin: 02/13/19 09:44 Dose: 30 mg Gabapentin (Neurontin) 600 mg PO TID [facility] Last Admin: 02/13/19 16:00 Dose: 600 mg Hydromorphone HCl (Dilaudid) 0.5 mg IVPUSH Q8H PRN PRN Reason: Pain (severe 7-10) Last Admin: 02/12/19 23:02 Dose: 0.5 mg Insulin Glargine (Lantus) 13 unit SUBCUT DAILY [facility] Last Admin: 02/13/19 09:50 Dose: 13 units Insulin Human Lispro (Humalog) 0 unit SUBCUT QIDACANDBED [facility]; Protocol Last Admin: 02/13/19 13:10 Dose: 2 unit Metoprolol Tartrate (Lopressor) 50 mg PO BID [facility] Last Admin: 02/13/19 09:48 Dose: 50 mg Ondansetron HCl (Zofran) 4 mg IVPUSH Q8H PRN PRN Reason: Nausea/Vomiting Simvastatin (Zocor) 20 mg PO BEDTIME [facility] Last Admin: 02/12/19 21:23 Dose: 20 mg Tramadol HCl (Ultram) 50 mg PO Q6H PRN PRN Reason: Pain Last Admin: 02/13/19 09:47 Dose: 50 mg Discontinued Medications Hydrocodone Bitart/Acetaminophen ([place] 325-5 Mg) 1 tab PO Q6H PRN PRN Reason: Pain (moderate 4-6) Last Admin: 02/12/19 08:49 Dose: 1 tab Bupivacaine HCl (Marcaine 0.25%) Confirm Administered Dose 30 ml .ROUTE .STK- MED ONE Stop: 02/12/19 11:44 Last Admin: 02/12/19 13:20 Dose: 20 ml Bupivacaine HCl (Sensorcaine-Mpf 0.75%) Confirm Administered Dose 30 ml .ROUTE .STK-MED ONE Stop: 02/12/19 13:21 Cefazolin Sodium (Ancef) Confirm Administered Dose 2 gm .ROUTE .STK-MED ONE Stop: 02/12/19 12:25 Diphenhydramine HCl (Benadryl) 12.5 mg IVPUSH Q6H PRN PRN Reason: pruritis Stop: 02/12/19 17:00 Enoxaparin Sodium (Lovenox) 30 mg SUBCUT Q24H [facility] Ephedrine Sulfate (Ephedrine In Ns) Confirm Administered Dose 25 mg .ROUTE .STK- MED ONE Stop: 02/12/19 13:41 Fentanyl (Sublimaze) Confirm Administered Dose 100 mcg .ROUTE .STK-MED ONE Stop: 02/12/19 09:26 Fentanyl (Sublimaze) Confirm Administered Dose 100 mcg .ROUTE .STK-MED ONE Stop: 02/12/19 13:21 Fentanyl (Sublimaze) 50 mcg IVPUSH Q5M PRN PRN Reason: Pain Stop: 02/12/19 17:00 Hydromorphone HCl (Dilaudid) 0.5 mg IVPUSH ONETIME ONE Stop: 02/11/19 15:48 Last Admin: 02/11/19 15:57 Dose: 0.5 mg Hydromorphone HCl (Dilaudid) 0.5 mg IVPUSH ONETIME ONE Stop: 02/11/19 17:25 Last Admin: 02/11/19 17:36 Dose: 0.5 mg Lactated Ringer's (Ringers, Lactated) 1,000 mls @ 100 mls/hr IV ASDIRECTED [facility] Last Admin: 02/12/19 00:30 Dose: 100 mls/hr Lidocaine HCl (Xylocaine-Mpf 1%) Confirm Administered Dose 6 mls @ as directed .ROUTE .STK-MED ONE Stop: 02/12/19 09:26 Lidocaine HCl (Xylocaine-Mpf 1%) Confirm Administered Dose 5 mls @ as directed .ROUTE .STK-MED ONE Stop: 02/12/19 13:21 Cefazolin Sodium/Dextrose 2 gm (/ Premix) 50 mls @ 100 mls/hr IV Q8H [facility] Stop: 02/13/19 12:59 Last Admin: 02/13/19 13:17 Dose: 100 mls/hr Magnesium Sulfate 2 gm/ Premix 50 mls @ 25 mls/hr IV ONETIME ONE Stop: 02/13/19 12:38 Last Admin: 02/13/19 13:52 Dose: 25 mls/hr Ketamine HCl (Ketalar) Confirm Administered Dose 500 mg .ROUTE .STK-MED ONE Stop: 02/12/19 12:09 Morphine Sulfate (Duramorph Pf) Confirm Administered Dose 10 mg .ROUTE .STK-MED ONE Stop: 02/12/19 09:26 Ondansetron HCl (Zofran) Confirm Administered Dose 4 mg .ROUTE .STK-MED ONE Stop: 02/12/19 09:27 Ondansetron HCl (Zofran) 4 mg IVPUSH ONETIME PRN PRN Reason: Nausea/Vomiting Stop: 02/12/19 17:00 Phenylephrine HCl (Phenylephrine In Ns 100 Mcg/Ml) Confirm Administered Dose 1 mg .ROUTE .STK-MED ONE Stop: 02/12/19 12:15 Propofol (Diprivan 20 Ml) Confirm Administered Dose 400 mg .ROUTE .STK-MED ONE Stop: 02/12/19 09:25 - Exam Quality Assessment: DVT Prophylaxis General: Alert, Oriented, Cooperative, No Acute Distress HEENT: Pupils Equal, Pupils Reactive, EOMI Neck: Trachea Midline, No JVD Lungs: Normal Respiratory Effort Cardiovascular: Regular Rate, Regular Rhythm GI/Abdominal Exam: Normal Bowel Sounds, Soft, Non-Tender, No Organomegaly, No Distention (Female) Exam: Deferred Back Exam: Normal Inspection Extremities: Normal Inspection, Non-Tender, Normal Capillary Refill Skin: Warm Wound/Incisions: Dressing Dry and Intact Neurological: No New Focal Deficit Psy/Mental Status: Alert, Normal Affect, Normal Mood - Problem List & Annotations (1) Diabetes mellitus SNOMED Code(s): 07096356 Code(s): E11.9 - TYPE 2 DIABETES MELLITUS WITHOUT COMPLICATIONS Status: Chronic Priority: Medium Current Visit: No Qualifiers: Diabetes mellitus type: type 2 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 Diabetes mellitus complication status: with unspecified complications Qualified Code(s): E11.8 - Type 2 diabetes mellitus with unspecified complications; Z79.4 - alf (current) use of insulin (2) HTN (hypertension), malignant SNOMED Code(s): 35315067 Code(s): I10 - ESSENTIAL (PRIMARY) HYPERTENSION Status: Chronic Priority : Medium Current Visit: No (3) Intertrochanteric fracture, hip SNOMED Code(s): 195370084 Code(s): S72.143A - DISPLACED INTERTROCHANTERIC FRACTURE OF UNSP FEMUR, INIT Status: Acute Priority: High Current Visit: Yes - Problem List Review Problem List Initiated/Reviewed/Updated: Yes - My Orders Last 24 Hours: My Active Orders 02/14/19 05:00 BMP [BASIC METABOLIC PANEL,BMP] [CHEM] DAILY CBC WITH AUTO DIFF [HEME] DAILY CRP [C-REACTIVE PROTEIN] [CHEM] DAILY 02/14/19 05:11 MAGNESIUM [CHEM] AM 02/14/19 08:00 CXR [Chest 1V Frontal] [CR] Routine 02/15/19 05:00 BMP [BASIC METABOLIC PANEL,BMP] [CHEM] DAILY CBC WITH AUTO DIFF [HEME] DAILY CRP [C-REACTIVE PROTEIN] [CHEM] DAILY 02/15/19 05:11 MAGNESIUM [CHEM] AM - Plan Plan:: Impression: Right hip fracture S/P fall; intertrochanteric fracture, right femur -Post-op day 2 right femur IM nailing Right shoulder pain, no evidence of fracture Chronic FMG HTN OA Diabetes mellitus, type 2 Plan: Adjust insulin as needed. Pain management Remove grace catheter when ambulatory Home meds Daily labs Pain mgt IS Consult PT/OT/CM DVT/GI prophylaxis
[2019-02-13] MEDS: Simvastatin 20 MG Tab PO SCH (21:57)
[2019-02-14] MEDS: Acetaminophen/HYDROcodone 325-5 MG Tab PO PRN (08:29)
[2019-02-14] MEDS: DULoxetine 30 MG Cap PO SCH (08:31)
[2019-02-14] MEDS: Cyclobenzaprine 10 MG Tab PO SCH ×2 (08:31→21:35)
[2019-02-14] MEDS: Metoprolol Tartrate 50 MG Tab PO SCH ×2 (08:31→21:35)
[2019-02-14] MEDS: Gabapentin 300 MG Cap PO SCH ×3 (08:31→21:35)
[2019-02-14] MEDS: Aspirin 325 MG Tab.EC PO SCH ×2 (08:32→21:35)
[2019-02-14] MEDS: Insulin Lispro 100 Units/ML 3 ML Vial SUBCUT SCH ×4 (08:32→22:04)
[2019-02-14] MEDS ORDERED: Magnesium Sulfate/Water 2 GM in Premix Bag 1 BAG IV ONE (10:16)
[2019-02-14] MEDS: Insulin Glarg,Human.Rec.Analog 100 UNIT/ML ML SUBCUT SCH (10:32)
--- NOTE | 2019-02-14 16:49 | PCM.PN ---
- General Info Date of Service: 02/14/19 Functional Status: Reports: Pain Controlled, Tolerating Diet, Ambulating, Urinating - Review of Systems General: Reports: No Symptoms HEENT: Reports: No Symptoms Pulmonary: Reports: No Symptoms Cardiovascular: Reports: No Symptoms Gastrointestinal: Reports: No Symptoms Genitourinary: Reports: No Symptoms Musculoskeletal: Reports: No Symptoms Skin: Reports: No Symptoms Neurological: Reports: No Symptoms Psychiatric: Reports: No Symptoms - Patient Data Vitals - Most Recent: Last Vital Signs Temp 37.6 C 02/14/19 15:18 Pulse 65 02/14/19 15:18 Resp 14 02/14/19 15:18 BP 122/48 L 02/14/19 15:18 Pulse Ox 95 02/14/19 15:18 Weight - Most Recent: 80.15 kg I&O - Last 24 Hours: Intake & Output 02/14/19 02/14/19 02/14/19 06:59 14:59 22:59 Intake Total 800 300 350 Output Total 1250 Balance -450 300 350 Lab Results Last 24 Hours: Laboratory Results - last 24 hr 02/13/19 02/13/19 02/14/19 Range/Units 17:40 22:51 05:58 WBC 12.26 H (3.98-10.04) K/mm3 RBC 4.05 (3.98-5.22) M/mm3 Hgb 11.1 L (11.2-15.7) gm/L Hct 35.2 (34.1-44.9) % MCV 86.9 (79.4-94.8) fl MCH 27.4 (25.6-32.2) pg MCHC 31.5 L (32.2-35.5) g/dl RDW Std Deviation 41.6 (36.4-46.3) fL Plt Count 157 L (182-369) K/mm3 MPV 11.8 (9.4-12.3) fl Neut % (Auto) 82.0 H (34.0-71.1) % Lymph % (Auto) 7.9 L (19.3-51.7) % [place] % (Auto) 8.2 (4.7-12.5) % Eos % (Auto) 1.6 (0.7-5.8) Baso % (Auto) 0.1 (0.1-1.2) % Neut # (Auto) 10.04 H (1.56-6.13) K/mm3 Lymph # (Auto) 0.97 L (1.18-3.74) K/mm3 [place] # (Auto) 1.01 H (0.24-0.36) K/mm3 Eos # (Auto) 0.20 (0.04-0.36) K/mm3 Baso # (Auto) 0.01 (0.01-0.08) K/mm3 Manual Slide Review Abnormal smear Sodium (136-145) mEq/L Potassium (3.5-5.1) mEq/L Chloride (98-107) mEq/L Carbon Dioxide (21-32) mEq/L Anion Gap (5-15) BUN (7-18) mg/dL Creatinine (0.55-1.02) mg/dL Est Cr Clr Drug Dosing mL/min Estimated GFR (MDRD) (>60) mL/min BUN/Creatinine Ratio (14-18) Glucose (83-115) mg/dL POC Glucose 211 H 183 H (83-110) mg/dL Calcium (8.5-10.1) mg/dL Magnesium (1.8-2.4) mg/dl C-Reactive Protein (<1.0) mg/dL 02/14/19 02/14/19 02/14/19 Range/Units 05:58 05:58 07:04 WBC (3.98-10.04) K/mm3 RBC (3.98-5.22) M/mm3 Hgb (11.2-15.7) gm/L Hct (34.1-44.9) % MCV (79.4-94.8) fl MCH (25.6-32.2) pg MCHC (32.2-35.5) g/dl RDW Std Deviation (36.4-46.3) fL Plt Count (182-369) K/mm3 MPV (9.4-12.3) fl Neut % (Auto) (34.0-71.1) % Lymph % (Auto) (19.3-51.7) % [place] % (Auto) (4.7-12.5) % Eos % (Auto) (0.7-5.8) Baso % (Auto) (0.1-1.2) % Neut # (Auto) (1.56-6.13) K/mm3 Lymph # (Auto) (1.18-3.74) K/mm3 [place] # (Auto) (0.24-0.36) K/mm3 Eos # (Auto) (0.04-0.36) K/mm3 Baso # (Auto) (0.01-0.08) K/mm3 Manual Slide Review Sodium 138 (136-145) mEq/L Potassium 3.8 (3.5-5.1) mEq/L Chloride 102 (98-107) mEq/L Carbon Dioxide 28 (21-32) mEq/L Anion Gap 11.8 (5-15) BUN 12 (7-18) mg/dL Creatinine 0.7 (0.55-1.02) mg/dL Est Cr Clr Drug Dosing 63.37 mL/min Estimated GFR (MDRD) > 60 (>60) mL/min BUN/Creatinine Ratio 17.1 (14-18) Glucose 165 H (83-115) mg/dL POC Glucose 174 H (83-110) mg/dL Calcium 9.0 (8.5-10.1) mg/dL Magnesium 1.8 (1.8-2.4) mg/dl C-Reactive Protein 14.6 H* (<1.0) mg/dL 02/14/19 02/14/19 Range/Units 11:40 16:30 WBC (3.98-10.04) K/mm3 RBC (3.98-5.22) M/mm3 Hgb (11.2-15.7) gm/L Hct (34.1-44.9) % MCV (79.4-94.8) fl MCH (25.6-32.2) pg MCHC (32.2-35.5) g/dl RDW Std Deviation (36.4-46.3) fL Plt Count (182-369) K/mm3 MPV (9.4-12.3) fl Neut % (Auto) (34.0-71.1) % Lymph % (Auto) (19.3-51.7) % [place] % (Auto) (4.7-12.5) % Eos % (Auto) (0.7-5.8) Baso % (Auto) (0.1-1.2) % Neut # (Auto) (1.56-6.13) K/mm3 Lymph # (Auto) (1.18-3.74) K/mm3 [place] # (Auto) (0.24-0.36) K/mm3 Eos # (Auto) (0.04-0.36) K/mm3 Baso # (Auto) (0.01-0.08) K/mm3 Manual Slide Review Sodium (136-145) mEq/L Potassium (3.5-5.1) mEq/L Chloride (98-107) mEq/L Carbon Dioxide (21-32) mEq/L Anion Gap (5-15) BUN (7-18) mg/dL Creatinine (0.55-1.02) mg/dL Est Cr Clr Drug Dosing mL/min Estimated GFR (MDRD) (>60) mL/min BUN/Creatinine Ratio (14-18) Glucose (83-115) mg/dL POC Glucose 242 H 207 H (83-110) mg/dL Calcium (8.5-10.1) mg/dL Magnesium (1.8-2.4) mg/dl C-Reactive Protein (<1.0) mg/dL Med Orders - Current: Current Medications Hydrocodone Bitart/Acetaminophen ([place] 325-5 Mg) 1 - 2 tab PO Q6H PRN PRN Reason: Pain Last Admin: 02/14/19 08:29 Dose: 2 tab Aspirin (Ecotrin) 325 mg PO BID [facility] Last Admin: 02/14/19 08:32 Dose: 325 mg Cyclobenzaprine HCl (Flexeril) 10 mg PO BID [facility] Last Admin: 02/14/19 08:31 Dose: 10 mg Dextrose/Water (Dextrose 50% In Water) 50 ml IVPUSH ASDIRECTED PRN PRN Reason: Hypoglycemia Duloxetine HCl (Cymbalta) 30 mg PO DAILY [facility] Last Admin: 02/14/19 08:31 Dose: 30 mg Gabapentin (Neurontin) 600 mg PO TID [facility] Last Admin: 02/14/19 16:00 Dose: 600 mg Hydromorphone HCl (Dilaudid) 0.5 mg IVPUSH Q8H PRN PRN Reason: Pain (severe 7-10) Last Admin: 02/12/19 23:02 Dose: 0.5 mg Insulin Glargine (Lantus) 13 unit SUBCUT DAILY [facility] Last Admin: 02/14/19 10:32 Dose: 13 units Insulin Human Lispro (Humalog) 0 unit SUBCUT QIDACANDBED [facility]; Protocol Last Admin: 02/14/19 12:18 Dose: 2 unit Metoprolol Tartrate (Lopressor) 50 mg PO BID [facility] Last Admin: 02/14/19 08:31 Dose: 50 mg Ondansetron HCl (Zofran) 4 mg IVPUSH Q8H PRN PRN Reason: Nausea/Vomiting Simvastatin (Zocor) 20 mg PO BEDTIME [facility] Last Admin: 02/13/19 21:57 Dose: 20 mg Tramadol HCl (Ultram) 50 mg PO Q6H PRN PRN Reason: Pain Last Admin: 02/13/19 09:47 Dose: 50 mg Discontinued Medications Hydrocodone Bitart/Acetaminophen ([place] 325-5 Mg) 1 tab PO Q6H PRN PRN Reason: Pain (moderate 4-6) Last Admin: 02/12/19 08:49 Dose: 1 tab Bupivacaine HCl (Marcaine 0.25%) Confirm Administered Dose 30 ml .ROUTE .STK- MED ONE Stop: 02/12/19 11:44 Last Admin: 02/12/19 13:20 Dose: 20 ml Bupivacaine HCl (Sensorcaine-Mpf 0.75%) Confirm Administered Dose 30 ml .ROUTE .STK-MED ONE Stop: 02/12/19 13:21 Cefazolin Sodium (Ancef) Confirm Administered Dose 2 gm .ROUTE .STK-MED ONE Stop: 02/12/19 12:25 Diphenhydramine HCl (Benadryl) 12.5 mg IVPUSH Q6H PRN PRN Reason: pruritis Stop: 02/12/19 17:00 Enoxaparin Sodium (Lovenox) 30 mg SUBCUT Q24H [facility] Ephedrine Sulfate (Ephedrine In Ns) Confirm Administered Dose 25 mg .ROUTE .STK- MED ONE Stop: 02/12/19 13:41 Fentanyl (Sublimaze) Confirm Administered Dose 100 mcg .ROUTE .STK-MED ONE Stop: 02/12/19 09:26 Fentanyl (Sublimaze) Confirm Administered Dose 100 mcg .ROUTE .STK-MED ONE Stop: 02/12/19 13:21 Fentanyl (Sublimaze) 50 mcg IVPUSH Q5M PRN PRN Reason: Pain Stop: 02/12/19 17:00 Hydromorphone HCl (Dilaudid) 0.5 mg IVPUSH ONETIME ONE Stop: 02/11/19 15:48 Last Admin: 02/11/19 15:57 Dose: 0.5 mg Hydromorphone HCl (Dilaudid) 0.5 mg IVPUSH ONETIME ONE Stop: 02/11/19 17:25 Last Admin: 02/11/19 17:36 Dose: 0.5 mg Lactated Ringer's (Ringers, Lactated) 1,000 mls @ 100 mls/hr IV ASDIRECTED [facility] Last Admin: 02/12/19 00:30 Dose: 100 mls/hr Lidocaine HCl (Xylocaine-Mpf 1%) Confirm Administered Dose 6 mls @ as directed .ROUTE .STK-MED ONE Stop: 02/12/19 09:26 Lidocaine HCl (Xylocaine-Mpf 1%) Confirm Administered Dose 5 mls @ as directed .ROUTE .STK-MED ONE Stop: 02/12/19 13:21 Cefazolin Sodium/Dextrose 2 gm (/ Premix) 50 mls @ 100 mls/hr IV Q8H [facility] Stop: 02/13/19 12:59 Last Admin: 02/13/19 13:17 Dose: 100 mls/hr Magnesium Sulfate 2 gm/ Premix 50 mls @ 25 mls/hr IV ONETIME ONE Stop: 02/13/19 12:38 Last Admin: 02/13/19 13:52 Dose: 25 mls/hr Magnesium Sulfate 2 gm/ Premix 50 mls @ 25 mls/hr IV ONETIME ONE Stop: 02/14/19 12:15 Last Admin: 02/14/19 10:33 Dose: 25 mls/hr Ketamine HCl (Ketalar) Confirm Administered Dose 500 mg .ROUTE .STK-MED ONE Stop: 02/12/19 12:09 Morphine Sulfate (Duramorph Pf) Confirm Administered Dose 10 mg .ROUTE .STK-MED ONE Stop: 02/12/19 09:26 Ondansetron HCl (Zofran) Confirm Administered Dose 4 mg .ROUTE .STK-MED ONE Stop: 02/12/19 09:27 Ondansetron HCl (Zofran) 4 mg IVPUSH ONETIME PRN PRN Reason: Nausea/Vomiting Stop: 02/12/19 17:00 Phenylephrine HCl (Phenylephrine In Ns 100 Mcg/Ml) Confirm Administered Dose 1 mg .ROUTE .STK-MED ONE Stop: 02/12/19 12:15 Propofol (Diprivan 20 Ml) Confirm Administered Dose 400 mg .ROUTE .STK-MED ONE Stop: 02/12/19 09:25 - Exam Quality Assessment: DVT Prophylaxis General: Alert, Oriented, Cooperative, No Acute Distress HEENT: Pupils Equal, Pupils Reactive, EOMI Neck: Trachea Midline, No JVD Lungs: Normal Respiratory Effort Cardiovascular: Regular Rate, Regular Rhythm GI/Abdominal Exam: Normal Bowel Sounds, No Organomegaly, No Distention (Female) Exam: Deferred Back Exam: Normal Inspection Extremities: Normal Inspection, Non-Tender, Normal Capillary Refill Skin: Warm Neurological: No New Focal Deficit, Cranial Nerves Intact Psy/Mental Status: Alert, Normal Affect, Normal Mood - Problem List & Annotations (1) Diabetes mellitus SNOMED Code(s): 14270408 Code(s): E11.9 - TYPE 2 DIABETES MELLITUS WITHOUT COMPLICATIONS Status: Chronic Priority: Medium Current Visit: No Qualifiers: Diabetes mellitus type: type 2 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 Diabetes mellitus complication status: with unspecified complications Qualified Code(s): E11.8 - Type 2 diabetes mellitus with unspecified complications; Z79.4 - bed bug exterminator (current) use of insulin (2) HTN (hypertension), malignant SNOMED Code(s): 00992022 Code(s): I10 - ESSENTIAL (PRIMARY) HYPERTENSION Status: Chronic Priority : Medium Current Visit: No (3) Intertrochanteric fracture, hip SNOMED Code(s): 636769118 Code(s): S72.143A - DISPLACED INTERTROCHANTERIC FRACTURE OF UNSP FEMUR, INIT Status: Acute Priority: High Current Visit: Yes - Problem List Review Problem List Initiated/Reviewed/Updated: Yes - My Orders Last 24 Hours: My Active Orders 02/13/19 18:14 Bladder Scan [RC] ASDIRECTED 02/13/19 19:45 Insert Urinary Catheter [OM.PC] Q24H 02/14/19 08:00 CXR [Chest 1V Frontal] [CR] Routine 02/15/19 05:00 BMP [BASIC METABOLIC PANEL,BMP] [CHEM] DAILY CBC WITH AUTO DIFF [HEME] DAILY CRP [C-REACTIVE PROTEIN] [CHEM] DAILY 02/15/19 05:11 MAGNESIUM [CHEM] AM - Plan Plan:: Impression: Right hip fracture S/P fall; intertrochanteric fracture, right femur -Post-op day 3 right femur IM nailing; will inject right knee per Dr Dowling Right shoulder pain, no evidence of fracture Chronic FMG HTN OA Diabetes mellitus, type 2 Plan: Adjust insulin as needed. Pain management Remove grace catheter when ambulatory Home meds Daily labs Pain mgt IS Consult PT/OT/CM DVT/GI prophylaxis Disposition, will clarify.
[2019-02-14] MEDS: Simvastatin 20 MG Tab PO SCH (21:35)
[2019-02-15] MEDS: Acetaminophen/HYDROcodone 325-5 MG Tab PO PRN (06:54)
[2019-02-15] MEDS: Metoprolol Tartrate 50 MG Tab PO SCH (08:12)
[2019-02-15] MEDS: Aspirin 325 MG Tab.EC PO SCH (08:12)
[2019-02-15] MEDS: DULoxetine 30 MG Cap PO SCH (08:12)
[2019-02-15 08:13] VITALS: BP 135/55
[2019-02-15] MEDS: Cyclobenzaprine 10 MG Tab PO SCH (08:13)
[2019-02-15] MEDS: Gabapentin 300 MG Cap PO SCH (08:13)
[2019-02-15] MEDS: Insulin Lispro 100 Units/ML 3 ML Vial SUBCUT SCH ×2 (08:14→11:53)
[2019-02-15] MEDS: Insulin Glarg,Human.Rec.Analog 100 UNIT/ML ML SUBCUT SCH (08:15)
[2019-02-15] MEDS ORDERED: Triamcinolone Acetonide 40 MG/ML 1 ML MDV INJECT ONE (11:28)
[2019-02-15] MEDS ORDERED: Bupivacaine 0.25% 10 ML SDV INJECT ONE (11:29)
[2019-02-15] MEDS ORDERED: Lidocaine 1% 10 ML MDV INJECT ONE (11:30)
--- NOTE | 2019-02-15 12:20 | PCM.OPNOTE ---
- General Post-Op/Procedure Note Date of Surgery/Procedure: 02/12/19 Operative Procedure(s): cephalomedullary nailing of right intertrochanteric hip fracture Pre Op Diagnosis: right intertrochanteric hip fracture Post-Op Diagnosis: Same Anesthesia Technique: Local, MAC, Spinal Primary Surgeon: Wilian Dowling Anesthesia Provider: Diana Frazier Creping Machine Operator Helper: Suzan Prather EBL in mLs: 15 Complications: None Condition: Good Free Text/Narrative:: Intake & Output 02/14/19 02/15/19 02/15/19 22:59 06:59 14:59 Intake Total 410 300 120 Output Total 1550 Balance 410 -1250 120
--- NOTE | 2019-02-15 13:05 | PCM.SURGPN ---
- General Info Date of Service: 02/15/19 POD#: 3 Functional Status: Reports: Pain Controlled, Tolerating Diet, Ambulating, Urinating, Incentive Spirometry, Other (The pt states her right knee hurts more than her hip. She has hx right knee OA and has received cortisone injections in the past.) - Patient Data Vitals - Most Recent: Last Vital Signs Temp 98.1 F 02/15/19 08:11 Pulse 92 02/15/19 08:12 Resp 18 02/15/19 08:11 BP 135/55 L 02/15/19 08:12 Pulse Ox 92 L 02/15/19 08:11 Weight - Most Recent: 177 lb 1.6 oz I&O - Last 24 Hours: Intake & Output 02/14/19 02/15/19 02/15/19 22:59 06:59 14:59 Intake Total 410 300 120 Output Total 1550 Balance 410 -1250 120 Lab Results Last 24 Hrs: Laboratory Results - last 24 hr 02/14/19 02/14/19 02/14/19 Range/Units 11:40 16:30 21:33 WBC (3.98-10.04) K/mm3 RBC (3.98-5.22) M/mm3 Hgb (11.2-15.7) gm/L Hct (34.1-44.9) % MCV (79.4-94.8) fl MCH (25.6-32.2) pg MCHC (32.2-35.5) g/dl RDW Std Deviation (36.4-46.3) fL Plt Count (182-369) K/mm3 MPV (9.4-12.3) fl Neut % (Auto) (34.0-71.1) % Lymph % (Auto) (19.3-51.7) % [place] % (Auto) (4.7-12.5) % Eos % (Auto) (0.7-5.8) Baso % (Auto) (0.1-1.2) % Neut # (Auto) (1.56-6.13) K/mm3 Lymph # (Auto) (1.18-3.74) K/mm3 [place] # (Auto) (0.24-0.36) K/mm3 Eos # (Auto) (0.04-0.36) K/mm3 Baso # (Auto) (0.01-0.08) K/mm3 Manual Slide Review Sodium (136-145) mEq/L Potassium (3.5-5.1) mEq/L Chloride (98-107) mEq/L Carbon Dioxide (21-32) mEq/L Anion Gap (5-15) BUN (7-18) mg/dL Creatinine (0.55-1.02) mg/dL Est Cr Clr Drug Dosing mL/min Estimated GFR (MDRD) (>60) mL/min BUN/Creatinine Ratio (14-18) Glucose (83-115) mg/dL POC Glucose 242 H 207 H 209 H (83-110) mg/dL Calcium (8.5-10.1) mg/dL Magnesium (1.8-2.4) mg/dl C-Reactive Protein (<1.0) mg/dL 02/15/19 02/15/19 02/15/19 Range/Units 06:14 06:15 06:15 WBC 10.64 H (3.98-10.04) K/mm3 RBC 4.18 (3.98-5.22) M/mm3 Hgb 11.6 (11.2-15.7) gm/L Hct 36.0 (34.1-44.9) % MCV 86.1 (79.4-94.8) fl MCH 27.8 (25.6-32.2) pg MCHC 32.2 (32.2-35.5) g/dl RDW Std Deviation 41.8 (36.4-46.3) fL Plt Count 187 (182-369) K/mm3 MPV 11.9 (9.4-12.3) fl Neut % (Auto) 80.6 H (34.0-71.1) % Lymph % (Auto) 8.6 L (19.3-51.7) % [place] % (Auto) 8.1 (4.7-12.5) % Eos % (Auto) 2.5 (0.7-5.8) Baso % (Auto) 0.1 (0.1-1.2) % Neut # (Auto) 8.57 H (1.56-6.13) K/mm3 Lymph # (Auto) 0.92 L (1.18-3.74) K/mm3 [place] # (Auto) 0.86 H (0.24-0.36) K/mm3 Eos # (Auto) 0.27 (0.04-0.36) K/mm3 Baso # (Auto) 0.01 (0.01-0.08) K/mm3 Manual Slide Review Abnormal smear Sodium 138 (136-145) mEq/L Potassium 3.6 (3.5-5.1) mEq/L Chloride 102 (98-107) mEq/L Carbon Dioxide 29 (21-32) mEq/L Anion Gap 10.6 (5-15) BUN 14 (7-18) mg/dL Creatinine 0.7 (0.55-1.02) mg/dL Est Cr Clr Drug Dosing 63.37 mL/min Estimated GFR (MDRD) > 60 (>60) mL/min BUN/Creatinine Ratio 20.0 H (14-18) Glucose 163 H (83-115) mg/dL POC Glucose 164 H (83-110) mg/dL Calcium 9.0 (8.5-10.1) mg/dL Magnesium (1.8-2.4) mg/dl C-Reactive Protein 11.3 H* (<1.0) mg/dL 02/15/19 02/15/19 Range/Units 06:15 11:03 WBC (3.98-10.04) K/mm3 RBC (3.98-5.22) M/mm3 Hgb (11.2-15.7) gm/L Hct (34.1-44.9) % MCV (79.4-94.8) fl MCH (25.6-32.2) pg MCHC (32.2-35.5) g/dl RDW Std Deviation (36.4-46.3) fL Plt Count (182-369) K/mm3 MPV (9.4-12.3) fl Neut % (Auto) (34.0-71.1) % Lymph % (Auto) (19.3-51.7) % [place] % (Auto) (4.7-12.5) % Eos % (Auto) (0.7-5.8) Baso % (Auto) (0.1-1.2) % Neut # (Auto) (1.56-6.13) K/mm3 Lymph # (Auto) (1.18-3.74) K/mm3 [place] # (Auto) (0.24-0.36) K/mm3 Eos # (Auto) (0.04-0.36) K/mm3 Baso # (Auto) (0.01-0.08) K/mm3 Manual Slide Review Sodium (136-145) mEq/L Potassium (3.5-5.1) mEq/L Chloride (98-107) mEq/L Carbon Dioxide (21-32) mEq/L Anion Gap (5-15) BUN (7-18) mg/dL Creatinine (0.55-1.02) mg/dL Est Cr Clr Drug Dosing mL/min Estimated GFR (MDRD) (>60) mL/min BUN/Creatinine Ratio (14-18) Glucose (83-115) mg/dL POC Glucose 244 H (83-110) mg/dL Calcium (8.5-10.1) mg/dL Magnesium 1.8 (1.8-2.4) mg/dl C-Reactive Protein (<1.0) mg/dL Med Orders - Current: Current Medications Hydrocodone Bitart/Acetaminophen ([place] 325-5 Mg) 1 - 2 tab PO Q6H PRN PRN Reason: Pain Last Admin: 02/15/19 06:54 Dose: 1 tab Aspirin (Ecotrin) 325 mg PO BID [facility] Last Admin: 02/15/19 08:12 Dose: 325 mg Cyclobenzaprine HCl (Flexeril) 10 mg PO BID [facility] Last Admin: 02/15/19 08:13 Dose: 10 mg Dextrose/Water (Dextrose 50% In Water) 50 ml IVPUSH ASDIRECTED PRN PRN Reason: Hypoglycemia Duloxetine HCl (Cymbalta) 30 mg PO DAILY [facility] Last Admin: 02/15/19 08:12 Dose: 30 mg Gabapentin (Neurontin) 600 mg PO TID [facility] Last Admin: 02/15/19 08:13 Dose: 600 mg Hydromorphone HCl (Dilaudid) 0.5 mg IVPUSH Q8H PRN PRN Reason: Pain (severe 7-10) Last Admin: 02/12/19 23:02 Dose: 0.5 mg Insulin Glargine (Lantus) 13 unit SUBCUT DAILY [facility] Last Admin: 02/15/19 08:15 Dose: 13 units Insulin Human Lispro (Humalog) 0 unit SUBCUT QIDACANDBED [facility]; Protocol Last Admin: 02/15/19 11:53 Dose: 2 unit Metoprolol Tartrate (Lopressor) 50 mg PO BID [facility] Last Admin: 02/15/19 08:12 Dose: 50 mg Ondansetron HCl (Zofran) 4 mg IVPUSH Q8H PRN PRN Reason: Nausea/Vomiting Simvastatin (Zocor) 20 mg PO BEDTIME [facility] Last Admin: 02/14/19 21:35 Dose: 20 mg Tramadol HCl (Ultram) 50 mg PO Q6H PRN PRN Reason: Pain Last Admin: 02/13/19 09:47 Dose: 50 mg Discontinued Medications Hydrocodone Bitart/Acetaminophen ([place] 325-5 Mg) 1 tab PO Q6H PRN PRN Reason: Pain (moderate 4-6) Last Admin: 02/12/19 08:49 Dose: 1 tab Bupivacaine HCl (Marcaine 0.25%) Confirm Administered Dose 30 ml .ROUTE .STK- MED ONE Stop: 02/12/19 11:44 Last Admin: 02/12/19 13:20 Dose: 20 ml Bupivacaine HCl (Sensorcaine-Mpf 0.75%) Confirm Administered Dose 30 ml .ROUTE .STK-MED ONE Stop: 02/12/19 13:21 Bupivacaine HCl (Sensorcaine-Mpf 0.25%) 4 ml INJECT ONETIME ONE Stop: 02/15/19 11:30 Last Admin: 02/15/19 12:56 Dose: 4 ml Cefazolin Sodium (Ancef) Confirm Administered Dose 2 gm .ROUTE .STK-MED ONE Stop: 02/12/19 12:25 Diphenhydramine HCl (Benadryl) 12.5 mg IVPUSH Q6H PRN PRN Reason: pruritis Stop: 02/12/19 17:00 Enoxaparin Sodium (Lovenox) 30 mg SUBCUT Q24H [facility] Ephedrine Sulfate (Ephedrine In Ns) Confirm Administered Dose 25 mg .ROUTE .STK- MED ONE Stop: 02/12/19 13:41 Fentanyl (Sublimaze) Confirm Administered Dose 100 mcg .ROUTE .STK-MED ONE Stop: 02/12/19 09:26 Fentanyl (Sublimaze) Confirm Administered Dose 100 mcg .ROUTE .STK-MED ONE Stop: 02/12/19 13:21 Fentanyl (Sublimaze) 50 mcg IVPUSH Q5M PRN PRN Reason: Pain Stop: 02/12/19 17:00 Hydromorphone HCl (Dilaudid) 0.5 mg IVPUSH ONETIME ONE Stop: 02/11/19 15:48 Last Admin: 02/11/19 15:57 Dose: 0.5 mg Hydromorphone HCl (Dilaudid) 0.5 mg IVPUSH ONETIME ONE Stop: 02/11/19 17:25 Last Admin: 02/11/19 17:36 Dose: 0.5 mg Lactated Ringer's (Ringers, Lactated) 1,000 mls @ 100 mls/hr IV ASDIRECTED [facility] Last Admin: 02/12/19 00:30 Dose: 100 mls/hr Lidocaine HCl (Xylocaine-Mpf 1%) Confirm Administered Dose 6 mls @ as directed .ROUTE .STK-MED ONE Stop: 02/12/19 09:26 Lidocaine HCl (Xylocaine-Mpf 1%) Confirm Administered Dose 5 mls @ as directed .ROUTE .STK-MED ONE Stop: 02/12/19 13:21 Cefazolin Sodium/Dextrose 2 gm (/ Premix) 50 mls @ 100 mls/hr IV Q8H [facility] Stop: 02/13/19 12:59 Last Admin: 02/13/19 13:17 Dose: 100 mls/hr Magnesium Sulfate 2 gm/ Premix 50 mls @ 25 mls/hr IV ONETIME ONE Stop: 02/13/19 12:38 Last Admin: 02/13/19 13:52 Dose: 25 mls/hr Magnesium Sulfate 2 gm/ Premix 50 mls @ 25 mls/hr IV ONETIME ONE Stop: 02/14/19 12:15 Last Admin: 02/14/19 10:33 Dose: 25 mls/hr Ketamine HCl (Ketalar) Confirm Administered Dose 500 mg .ROUTE .STK-MED ONE Stop: 02/12/19 12:09 Lidocaine HCl (Xylocaine 1%) 2 ml INJECT ONETIME ONE Stop: 02/15/19 11:31 Last Admin: 02/15/19 12:57 Dose: 2 ml Morphine Sulfate (Duramorph Pf) Confirm Administered Dose 10 mg .ROUTE .STK-MED ONE Stop: 02/12/19 09:26 Ondansetron HCl (Zofran) Confirm Administered Dose 4 mg .ROUTE .STK-MED ONE Stop: 02/12/19 09:27 Ondansetron HCl (Zofran) 4 mg IVPUSH ONETIME PRN PRN Reason: Nausea/Vomiting Stop: 02/12/19 17:00 Phenylephrine HCl (Phenylephrine In Ns 100 Mcg/Ml) Confirm Administered Dose 1 mg .ROUTE .STK-MED ONE Stop: 02/12/19 12:15 Propofol (Diprivan 20 Ml) Confirm Administered Dose 400 mg .ROUTE .STK-MED ONE Stop: 02/12/19 09:25 Triamcinolone Acetonide (Kenalog-40) 80 mg INJECT ONETIME ONE Stop: 02/15/19 11:29 Last Admin: 02/15/19 12:57 Dose: 80 mg - Exam Wound/Incisions: Dressing Dry and Intact General: Alert, Cooperative, No Acute Distress Lungs: Normal Respiratory Effort Extremities: Other (NVS intact for BLE. Tess's negative for BLE. Right thigh soft, nontender. Right knee with mod effusion. No erythema, warmth at right knee noted.) - Problem List Review Problem List Initiated/Reviewed/Updated: Yes - My Orders Last 24 Hours: Active Orders 24 hr Category Date Time Status Communication Order [RC] ASDIRECTED Care 02/15/19 11:32 Active Medication Orders Hydrocodone Bitart/Acetaminophen ([place] 325-5 Mg) 1 - 2 tab PO Q6H PRN PRN Reason: Pain Last Admin: 02/15/19 06:54 Dose: 1 tab Admin: 02/14/19 08:29 Dose: 2 tab Admin: 02/13/19 05:42 Dose: 2 tab Admin: 02/12/19 18:00 Dose: 1 tab Aspirin (Ecotrin) 325 mg PO BID [facility] Last Admin: 02/15/19 08:12 Dose: 325 mg Admin: 02/14/19 21:35 Dose: 325 mg Admin: 02/14/19 08:32 Dose: 325 mg Admin: 02/13/19 21:57 Dose: 325 mg Admin: 02/13/19 09:48 Dose: 325 mg Cyclobenzaprine HCl (Flexeril) 10 mg PO BID [facility] Last Admin: 02/15/19 08:13 Dose: 10 mg Admin: 02/14/19 21:35 Dose: 10 mg Admin: 02/14/19 08:31 Dose: 10 mg Admin: 02/13/19 21:56 Dose: 10 mg Admin: 02/13/19 09:46 Dose: 10 mg Admin: 02/12/19 21:24 Dose: 10 mg Admin: 02/12/19 09:11 Dose: Admin: 02/11/19 20:44 Dose: 10 mg Dextrose/Water (Dextrose 50% In Water) 50 ml IVPUSH ASDIRECTED PRN PRN Reason: Hypoglycemia Duloxetine HCl (Cymbalta) 30 mg PO DAILY [facility] Last Admin: 02/15/19 08:12 Dose: 30 mg Admin: 02/14/19 08:31 Dose: 30 mg Admin: 02/13/19 09:44 Dose: 30 mg Admin: 02/12/19 09:11 Dose: Gabapentin (Neurontin) 600 mg PO TID [facility] Last Admin: 02/15/19 08:13 Dose: 600 mg Admin: 02/14/19 21:35 Dose: 600 mg Admin: 02/14/19 16:00 Dose: 600 mg Admin: 02/14/19 08:31 Dose: 600 mg Admin: 02/13/19 21:56 Dose: 600 mg Admin: 02/13/19 16:00 Dose: 600 mg Admin: 02/13/19 09:45 Dose: 600 mg Admin: 02/12/19 21:23 Dose: 600 mg Admin: 02/12/19 16:36 Dose: 600 mg Admin: 02/12/19 09:11 Dose: Admin: 02/11/19 20:44 Dose: 600 mg Hydromorphone HCl (Dilaudid) 0.5 mg IVPUSH Q8H PRN PRN Reason: Pain (severe 7-10) Last Admin: 02/12/19 23:02 Dose: 0.5 mg Admin: 02/12/19 00:38 Dose: 0.5 mg Insulin Glargine (Lantus) 13 unit SUBCUT DAILY [facility] Last Admin: 02/15/19 08:15 Dose: 13 units Admin: 02/14/19 10:32 Dose: 13 units Admin: 02/13/19 09:50 Dose: 13 units Insulin Human Lispro (Humalog) 0 unit SUBCUT QIDACANDBED [facility]; Protocol Last Admin: 02/15/19 11:53 Dose: 2 unit Admin: 02/15/19 08:14 Dose: 1 unit Admin: 02/14/19 22:04 Dose: 2 unit Admin: 02/14/19 17:25 Dose: 2 unit Admin: 02/14/19 12:18 Dose: 2 unit Admin: 02/14/19 08:32 Dose: 1 unit Admin: 02/13/19 22:53 Dose: 1 unit Admin: 02/13/19 18:43 Dose: 2 unit Admin: 02/13/19 13:10 Dose: 2 unit Admin: 02/13/19 09:51 Dose: 1 unit Admin: 02/12/19 22:45 Dose: 2 unit Admin: 02/12/19 18:00 Dose: 1 unit Admin: 02/12/19 11:09 Dose: Not Given Admin: 02/12/19 07:44 Dose: Not Given Metoprolol Tartrate (Lopressor) 50 mg PO BID [facility] Last Admin: 02/15/19 08:12 Dose: 50 mg Admin: 02/14/19 21:35 Dose: 50 mg Admin: 02/14/19 08:31 Dose: 50 mg Admin: 02/13/19 21:57 Dose: 50 mg Admin: 02/13/19 09:48 Dose: 50 mg Admin: 02/12/19 21:23 Dose: 50 mg Admin: 02/12/19 08:36 Dose: 50 mg Admin: 02/11/19 20:45 Dose: 50 mg Ondansetron HCl (Zofran) 4 mg IVPUSH Q8H PRN PRN Reason: Nausea/Vomiting Simvastatin (Zocor) 20 mg PO BEDTIME [facility] Last Admin: 02/14/19 21:35 Dose: 20 mg Admin: 02/13/19 21:57 Dose: 20 mg Admin: 02/12/19 21:23 Dose: 20 mg Admin: 02/11/19 20:45 Dose: 20 mg Tramadol HCl (Ultram) 50 mg PO Q6H PRN PRN Reason: Pain Last Admin: 02/13/19 09:47 Dose: 50 mg - Assessment Assessment (Free Text/Narrative):: POD#3 - s/p cephalomedullary leo placement for right femur fx right knee OA - Plan Plan (Free Text/Narrative):: 1. 325mg ASA PO BID. Frequent mobility, TEDs. 2. Discharge to home today per Hospitalist service. 3. WBAT RLE. PROCEDURE NOTE: Right knee aspiration and injection of cortisone The risks, benefits, goals, alternatives to right knee aspiration and injection were discussed and under sterile technique, 8cc of string-sign positive, straw- colored synovial fluid was aspirated from right knee and via same needle, 2cc of Kenalog-40 with 4cc of 0.25% plain marcaine was injected to the right knee. The pt tolerated the right knee procedure well.
--- NOTE | 2019-02-15 13:18 | OR ---
DATE OF OPERATION: 02/12/2019 SURGEON: Wilian Dowling MD OPERATION PERFORMED: Cephalomedullary nailing of right intertrochanteric hip fracture. PREOPERATIVE DIAGNOSIS: Right intertrochanteric hip fracture. POSTOPERATIVE DIAGNOSIS: Right intertrochanteric hip fracture. ANESTHESIA: Local MAC with spinal. ANESTHESIA PROVIDER: Diana Frazier CRNA SPINE SURGEON: Suzan Prather PA-C ESTIMATED BLOOD LOSS: 15 mL. COMPLICATIONS: None. CONDITION: Stable. IMPLANTS: Brenda short gamma nail. DESCRIPTION OF PROCEDURE: The patient was identified in the preop holding area. Proper site was marked and identified by the surgeon. The patient was taken back to the operating theater where after adequate anesthesia, the patient's bilateral lower extremities were placed in traction boots. The patient's left lower extremity was placed in the traction boot but then no traction was applied. Right lower extremity was then placed in traction boot. The peg was then placed. All bony prominences were well padded. Traction was applied to the right lower extremity until it showed anatomic reduction of the previously noted intertrochanteric hip fracture. The right hip was then sterilely prepped and draped in usual sterile fashion. OR time-out was performed. The patient received 2 g of IV Ancef. At this time, standard incision superior to the tip of the greater trochanter was done. Guidewire was then placed in a center-center position at the tip of the greater trochanter. An opening reamer was then utilized. Short gamma nail was then placed and properly positioned. Incision was then made for the triple trocar for the lag screw into the head. Guidepin was then placed in a center- center of the head position. It was measured, and the step reamer was then utilized to the correct depth. At this time, the lag screw was then placed, and the set screw was placed to keep the lag screw in place. At this time, the triple trocar was used for the distal interlock, and the distal interlock was then placed. The aiming arm was then removed, and it was found to have anatomic reduction in both AP and lateral views of the intertrochanteric hip fracture. At this time, all incisions were adequately irrigated with normal saline. 2-0 Vicryl was used subcutaneously and bridger used for the skin. The patient had a sterile soft dressing applied and was sent to PACU in stable condition. MMODAL /[id number]
--- NOTE | 2019-02-15 13:26 | PCM.DCSUM1 ---
Discharge Summary - Hospital Course HPI Initial Comments: 78 year old female slipped on ice which resulted in right hip and shoulder pain. Radiographic studies document a right hip fracture. She is scheduled for ortho surgery on 02/12/19, time TBD. PMH: DM type 2; HTN; HLD; OA; FMG. Diagnosis: Stroke: No - Discharge Data Discharge Date: 02/15/19 (Admit date: 02/11/19) Discharge Disposition: Home, W Home Health Agency 06 Condition: Good - Discharge Diagnosis/Problem(s) (1) Diabetes mellitus SNOMED Code(s): 17251372 ICD Code: E11.9 - TYPE 2 DIABETES MELLITUS WITHOUT COMPLICATIONS Status: Chronic Priority: Medium Current Visit: No Qualifiers: Diabetes mellitus type: type 2 Diabetes mellitus intermediate manager insulin use: with intermediate manager use Diabetes mellitus complication status: with unspecified complications Qualified Code(s): E11.8 - Type 2 diabetes mellitus with unspecified complications; Z79.4 - [facility] (current) use of insulin (2) HTN (hypertension), malignant SNOMED Code(s): 82227106 ICD Code: I10 - ESSENTIAL (PRIMARY) HYPERTENSION Status: Chronic Priority : Medium Current Visit: No (3) Intertrochanteric fracture, hip SNOMED Code(s): 389930499 ICD Code: S72.143A - DISPLACED INTERTROCHANTERIC FRACTURE OF UNSP FEMUR, INIT Status: Acute Priority: High Current Visit: Yes - Patient Summary/Data Operative Procedure(s) Performed: cephalomedullary nailing of right intertrochanteric hip fracture Consults: Consultations 02/12/19 09:00 Consult to Case Management/Roll Clamp Operator [CONS] Routine Consult to Occupational Therapy [OT Evaluation and Treatment] [CONS] Routine Consult to Physical Therapy [PT Evaluation and Treatment] [CONS] Routine 02/12/19 14:12 OT Evaluation and Treatment [CONS] Routine PT Evaluation and Treatment [CONS] Routine Labs Pending at D/C: None Recommended Follow-up Testing/Procedures: Follow-up with PCP within 7-10 days of discharge, sooner if needed Follow-up with Dr. Dowling's office as scheduled Hospital Course: Jeaneth Pisano is a 78yo who slipped on ice at her daughter's house and fell resulting in a right intertrochanteric fractur of the hip. She also reportedly bumped her elbow on her right side although imaging for this was negative. She underwent simple medullary leo placement and was postop day 3 at discharge. Labs have remained stable. She's been receiving 325 mg aspirin twice a day and this should be continued on discharge for a total of 35 days. She'll be prescribed 4 days worth of [place] as needed for pain. She should ambulate frequently and continue wearing her THOM hose. He was instructed to weight-bear as tolerated with the right lower extremity. She should use a frontwheel walker as ordered. There was some discussion back and forth as she does have other styles of walker available but PT is recommending this at this time. She has been working with PT and OT throughout her stay. While here she was complaining of right knee pain and actually reported that pain was worse than her hip. LAMAR Garrido Dr.'s office did remove 8 mL of string sign positive, straw-colored synovial fluid. She then injected 2 mL of [id number] with 4 mL of 0.25 plain Marcaine and it is the right knee. She tolerated this procedure well and this did improve her pain. All home medications were continued on discharge. She should continue taking her blood sugars as prior. PT and OT recommended home with home health services. She should follow-up with her primary care provider within 7-10 days of discharge. Appointment with Dr. Dowling's office has been scheduled. I personally met with Jeaneth Pisano [id number] prior to discharge to discuss her homebound status and needs during discharge. Because of weakness and difficulty with ambulation secondary to osteoarthritis and her hip fracture she will be homebound. She will require home health services including PT for continued mobility and strengthening, OT for continued ADL assessment, strengthening, and assistance with improving ADLs, and also a skilled nurse to oversee disease progress and management. The services can be monitored by her primary care provider, Dr. Dwyer, who will adjust as necessary. - Patient Instructions Diet: Usual Diet as Tolerated Activity: Apply Ice, As Tolerated, Elevate Extremity, Full Weight Bearing Driving: Do Not Drive Showering/Bathing: May Shower Wound/Incision Care: Keep Operative Site/Wound Site Clean and Dry, Do NOT Change Dressing Notify Provider of: Fever, Increased Pain, Swelling and Redness, Drainage, Nausea and/or Vomiting Other/Special Instructions: Please get up and moving around EVERY HOUR while awake. This helps to prevent blood clots. Please use your walker and have help with mobility as needed. Take a short walk in your home every hour while awake. Please take 325mg Aspirin TWICE daily. The aspirin is being used for blood clot prevention and not for pain management so please do not miss a dose of the medication. You could use a medication like Zantac or Pepcid and a medication like Prilosec or Nexium to protect your stomach while you are using the aspirin. At home, please complete the exercises that you learned during the Hospital stay. Schedule for physical therapy. Use the pain medication as needed. The medication may cause drowsiness and constipation. Contact your primary care provider for instructions if you are constipated. You may use a stool softener like docusate sodium or Colace 100mg twice daily and/or a laxative like Miralax daily for constipation. Increase your water and fiber intake while you are using the pain medication. Discontinue use of the pain medication as soon as able. Please do not use other medications that may cause drowsiness (other pain medications, anxiety pills, cold medications, sleeping pills, etc) while using the prescription pain medication. Do not use alcohol while using the pain medication. Wear the THOM hose during the day and you may remove these at night. Elevate the limb to decrease swelling. Place ice to the area often. Place a towel between your skin and the blue pad. Use the incentive spirometer often. Take deep breaths throughout the day. Please keep the dressing in place until follow-up. Notify the Clinic if the dressing becomes saturated. Increase your protein intake while you are healing. If you have diabetes, please closely monitor your blood sugars and notify your primary care provider with abnormal values. Elevated blood sugars increases the risk of infection. Call the Clinic with questions or concerns - [phone]. Resume all home medications. Take your blood glucose readings as per your prior routine. Follow-up with your PCP, Dr. Dwyer, within 7-10 days of discharge. Follow-up with Dr. Dowling's office as scheduled. - Discharge Plan *PRESCRIPTION DRUG MONITORING PROGRAM REVIEWED*: No *COPY OF PRESCRIPTION DRUG MONITORING REPORT IN PATIENT TONY: No Prescriptions/Med Rec: Acetaminophen/HYDROcodone [[place] 325-5 MG] 1 tab PO Q6H PRN #16 tablet PRN Reason: Pain Aspirin 325 mg PO BID #68 tab Home Medications: Home Meds Calcium Carbonate/Vitamin D3 [Caltrate 600 Plus D3 Tablet] 600 mg PO DAILY 09/28 [History] Furosemide [Lasix] 20 mg PO DAILY 09/28/14 [History] Gabapentin [Neurontin] 600 mg PO TID 09/28/14 [History] Insulin Lispro [Humalog] See Protocol SQ DAILY 09/28/14 [History] Losartan [Cozaar] 50 mg PO DAILY 09/28/14 [History] Ubidecarenone [Co Q-10] 100 mg PO DAILY 09/28/14 [History] Zinc Gluconate [Zinc] 50 mg PO DAILY 09/28/14 [History] traMADol [Ultram] 50 mg PO Q6H PRN 09/28/14 [History] [place] 4-Zykunxdlk-Nqwryeo E 1,000 mg PO BID 02/13/15 [History] Cholecalciferol (Vitamin D3) [Vitamin D3] 2,000 unit PO DAILY 07/19/17 [History] Cyclobenzaprine [Flexeril] 10 mg PO BID 07/19/17 [History] DULoxetine [Cymbalta] 30 mg PO DAILY 07/19/17 [History] Metoprolol Tartrate [Lopressor] 50 mg PO BID 07/19/17 [History] Simvastatin [Zocor] 20 mg PO BEDTIME 02/10/18 [History] Cbd Oil 10 drop PO TID 02/11/19 [History] Insulin Glarg,Human.Rec.Analog [Lantus Solostar] 32 unit SUBCUT DAILY 02/11/19 [ History] Acetaminophen/HYDROcodone [[place] 325-5 MG] 1 tab PO Q6H PRN #16 tablet 02/15/19 [Rx] Aspirin 325 mg PO BID #68 tab 02/15/19 [Rx] Oxygen Therapy Mode: Room Air Patient Handouts: Hip Fracture Referrals: Suzan Parther PA-C [Physician Associate Professor Of Archaeology] - 02/24/19 1:15 pm Robb Dwyer MD [Primary Care Provider] - - Discharge Summary/Plan Comment DC Time >30 min.: Yes (45 minutes ) - General Info Date of Service: 02/15/19 Admission Dx/Problem (Free Text: Admission Diagnosis/Problem Admission Diagnosis/Problem Hip fracture, intertrochanteric Subjective Update: In to see Jeaneth. She is doing well she has been cleared by PT/OT for discharge. She did undergo a right knee steroid injection today and reports this is helpful. No patient or family concerns. She will be discharged today. Functional Status: Reports: Pain Controlled, Tolerating Diet, Ambulating, Urinating, Incentive Spirometry. Denies: New Symptoms - Review of Systems General: Reports: No Symptoms. Denies: Fever, Weakness, Fatigue, Malaise, Chills HEENT: Reports: No Symptoms. Denies: Headaches, Sore Throat Pulmonary: Reports: No Symptoms. Denies: Shortness of Breath, Cough, Sputum, Wheezing Cardiovascular: Reports: No Symptoms. Denies: Chest Pain, Palpitations, Dyspnea on Exertion, Edema Gastrointestinal: Reports: No Symptoms. Denies: Abdominal Pain, Constipation, Diarrhea, Nausea, Vomiting Genitourinary: Reports: No Symptoms. Denies: Pain Musculoskeletal: Reports: Leg Pain, Joint Pain (right knee "hurts worse than my hip") Skin: Reports: No Symptoms Neurological: Reports: Difficulty Walking, Gait Disturbance. Denies: Confusion , Numbness, Trouble Speaking, Weakness Psychiatric: Reports: No Symptoms - Patient Data Vitals - Most Recent: Last Vital Signs Temp 98.1 F 02/15/19 08:11 Pulse 92 02/15/19 08:12 Resp 18 02/15/19 08:11 BP 135/55 L 02/15/19 08:12 Pulse Ox 92 L 02/15/19 08:11 Weight - Most Recent: 177 lb 1.6 oz I&O - Last 24 hours: Intake & Output 02/14/19 02/15/19 02/15/19 22:59 06:59 14:59 Intake Total 410 300 120 Output Total 1550 Balance 410 -1250 120 Lab Results - Last 24 hrs: Laboratory Results - last 24 hr 02/14/19 02/14/19 02/14/19 Range/Units 11:40 16:30 21:33 WBC (3.98-10.04) K/mm3 RBC (3.98-5.22) M/mm3 Hgb (11.2-15.7) gm/L Hct (34.1-44.9) % MCV (79.4-94.8) fl MCH (25.6-32.2) pg MCHC (32.2-35.5) g/dl RDW Std Deviation (36.4-46.3) fL Plt Count (182-369) K/mm3 MPV (9.4-12.3) fl Neut % (Auto) (34.0-71.1) % Lymph % (Auto) (19.3-51.7) % [place] % (Auto) (4.7-12.5) % Eos % (Auto) (0.7-5.8) Baso % (Auto) (0.1-1.2) % Neut # (Auto) (1.56-6.13) K/mm3 Lymph # (Auto) (1.18-3.74) K/mm3 [place] # (Auto) (0.24-0.36) K/mm3 Eos # (Auto) (0.04-0.36) K/mm3 Baso # (Auto) (0.01-0.08) K/mm3 Manual Slide Review Sodium (136-145) mEq/L Potassium (3.5-5.1) mEq/L Chloride (98-107) mEq/L Carbon Dioxide (21-32) mEq/L Anion Gap (5-15) BUN (7-18) mg/dL Creatinine (0.55-1.02) mg/dL Est Cr Clr Drug Dosing mL/min Estimated GFR (MDRD) (>60) mL/min BUN/Creatinine Ratio (14-18) Glucose (83-115) mg/dL POC Glucose 242 H 207 H 209 H (83-110) mg/dL Calcium (8.5-10.1) mg/dL Magnesium (1.8-2.4) mg/dl C-Reactive Protein (<1.0) mg/dL 02/15/19 02/15/19 02/15/19 Range/Units 06:14 06:15 06:15 WBC 10.64 H (3.98-10.04) K/mm3 RBC 4.18 (3.98-5.22) M/mm3 Hgb 11.6 (11.2-15.7) gm/L Hct 36.0 (34.1-44.9) % MCV 86.1 (79.4-94.8) fl MCH 27.8 (25.6-32.2) pg MCHC 32.2 (32.2-35.5) g/dl RDW Std Deviation 41.8 (36.4-46.3) fL Plt Count 187 (182-369) K/mm3 MPV 11.9 (9.4-12.3) fl Neut % (Auto) 80.6 H (34.0-71.1) % Lymph % (Auto) 8.6 L (19.3-51.7) % [place] % (Auto) 8.1 (4.7-12.5) % Eos % (Auto) 2.5 (0.7-5.8) Baso % (Auto) 0.1 (0.1-1.2) % Neut # (Auto) 8.57 H (1.56-6.13) K/mm3 Lymph # (Auto) 0.92 L (1.18-3.74) K/mm3 [place] # (Auto) 0.86 H (0.24-0.36) K/mm3 Eos # (Auto) 0.27 (0.04-0.36) K/mm3 Baso # (Auto) 0.01 (0.01-0.08) K/mm3 Manual Slide Review Abnormal smear Sodium 138 (136-145) mEq/L Potassium 3.6 (3.5-5.1) mEq/L Chloride 102 (98-107) mEq/L Carbon Dioxide 29 (21-32) mEq/L Anion Gap 10.6 (5-15) BUN 14 (7-18) mg/dL Creatinine 0.7 (0.55-1.02) mg/dL Est Cr Clr Drug Dosing 63.37 mL/min Estimated GFR (MDRD) > 60 (>60) mL/min BUN/Creatinine Ratio 20.0 H (14-18) Glucose 163 H (83-115) mg/dL POC Glucose 164 H (83-110) mg/dL Calcium 9.0 (8.5-10.1) mg/dL Magnesium (1.8-2.4) mg/dl C-Reactive Protein 11.3 H* (<1.0) mg/dL 02/15/19 02/15/19 Range/Units 06:15 11:03 WBC (3.98-10.04) K/mm3 RBC (3.98-5.22) M/mm3 Hgb (11.2-15.7) gm/L Hct (34.1-44.9) % MCV (79.4-94.8) fl MCH (25.6-32.2) pg MCHC (32.2-35.5) g/dl RDW Std Deviation (36.4-46.3) fL Plt Count (182-369) K/mm3 MPV (9.4-12.3) fl Neut % (Auto) (34.0-71.1) % Lymph % (Auto) (19.3-51.7) % [place] % (Auto) (4.7-12.5) % Eos % (Auto) (0.7-5.8) Baso % (Auto) (0.1-1.2) % Neut # (Auto) (1.56-6.13) K/mm3 Lymph # (Auto) (1.18-3.74) K/mm3 [place] # (Auto) (0.24-0.36) K/mm3 Eos # (Auto) (0.04-0.36) K/mm3 Baso # (Auto) (0.01-0.08) K/mm3 Manual Slide Review Sodium (136-145) mEq/L Potassium (3.5-5.1) mEq/L Chloride (98-107) mEq/L Carbon Dioxide (21-32) mEq/L Anion Gap (5-15) BUN (7-18) mg/dL Creatinine (0.55-1.02) mg/dL Est Cr Clr Drug Dosing mL/min Estimated GFR (MDRD) (>60) mL/min BUN/Creatinine Ratio (14-18) Glucose (83-115) mg/dL POC Glucose 244 H (83-110) mg/dL Calcium (8.5-10.1) mg/dL Magnesium 1.8 (1.8-2.4) mg/dl C-Reactive Protein (<1.0) mg/dL Med Orders - Current: Current Medications Hydrocodone Bitart/Acetaminophen ([place] 325-5 Mg) 1 - 2 tab PO Q6H PRN PRN Reason: Pain Last Admin: 02/15/19 06:54 Dose: 1 tab Aspirin (Ecotrin) 325 mg PO BID [facility] Last Admin: 02/15/19 08:12 Dose: 325 mg Cyclobenzaprine HCl (Flexeril) 10 mg PO BID [facility] Last Admin: 02/15/19 08:13 Dose: 10 mg Dextrose/Water (Dextrose 50% In Water) 50 ml IVPUSH ASDIRECTED PRN PRN Reason: Hypoglycemia Duloxetine HCl (Cymbalta) 30 mg PO DAILY [facility] Last Admin: 02/15/19 08:12 Dose: 30 mg Gabapentin (Neurontin) 600 mg PO TID [facility] Last Admin: 02/15/19 08:13 Dose: 600 mg Hydromorphone HCl (Dilaudid) 0.5 mg IVPUSH Q8H PRN PRN Reason: Pain (severe 7-10) Last Admin: 02/12/19 23:02 Dose: 0.5 mg Insulin Glargine (Lantus) 13 unit SUBCUT DAILY [facility] Last Admin: 02/15/19 08:15 Dose: 13 units Insulin Human Lispro (Humalog) 0 unit SUBCUT QIDACANDBED [facility]; Protocol Last Admin: 02/15/19 11:53 Dose: 2 unit Metoprolol Tartrate (Lopressor) 50 mg PO BID [facility] Last Admin: 02/15/19 08:12 Dose: 50 mg Ondansetron HCl (Zofran) 4 mg IVPUSH Q8H PRN PRN Reason: Nausea/Vomiting Simvastatin (Zocor) 20 mg PO BEDTIME [facility] Last Admin: 02/14/19 21:35 Dose: 20 mg Tramadol HCl (Ultram) 50 mg PO Q6H PRN PRN Reason: Pain Last Admin: 02/13/19 09:47 Dose: 50 mg Discontinued Medications Hydrocodone Bitart/Acetaminophen ([place] 325-5 Mg) 1 tab PO Q6H PRN PRN Reason: Pain (moderate 4-6) Last Admin: 02/12/19 08:49 Dose: 1 tab Bupivacaine HCl (Marcaine 0.25%) Confirm Administered Dose 30 ml .ROUTE .STK- MED ONE Stop: 02/12/19 11:44 Last Admin: 02/12/19 13:20 Dose: 20 ml Bupivacaine HCl (Sensorcaine-Mpf 0.75%) Confirm Administered Dose 30 ml .ROUTE .STK-MED ONE Stop: 02/12/19 13:21 Bupivacaine HCl (Sensorcaine-Mpf 0.25%) 4 ml INJECT ONETIME ONE Stop: 02/15/19 11:30 Last Admin: 02/15/19 12:56 Dose: 4 ml Cefazolin Sodium (Ancef) Confirm Administered Dose 2 gm .ROUTE .STK-MED ONE Stop: 02/12/19 12:25 Diphenhydramine HCl (Benadryl) 12.5 mg IVPUSH Q6H PRN PRN Reason: pruritis Stop: 02/12/19 17:00 Enoxaparin Sodium (Lovenox) 30 mg SUBCUT Q24H [facility] Ephedrine Sulfate (Ephedrine In Ns) Confirm Administered Dose 25 mg .ROUTE .STK- MED ONE Stop: 02/12/19 13:41 Fentanyl (Sublimaze) Confirm Administered Dose 100 mcg .ROUTE .STK-MED ONE Stop: 02/12/19 09:26 Fentanyl (Sublimaze) Confirm Administered Dose 100 mcg .ROUTE .STK-MED ONE Stop: 02/12/19 13:21 Fentanyl (Sublimaze) 50 mcg IVPUSH Q5M PRN PRN Reason: Pain Stop: 02/12/19 17:00 Hydromorphone HCl (Dilaudid) 0.5 mg IVPUSH ONETIME ONE Stop: 02/11/19 15:48 Last Admin: 02/11/19 15:57 Dose: 0.5 mg Hydromorphone HCl (Dilaudid) 0.5 mg IVPUSH ONETIME ONE Stop: 02/11/19 17:25 Last Admin: 02/11/19 17:36 Dose: 0.5 mg Lactated Ringer's (Ringers, Lactated) 1,000 mls @ 100 mls/hr IV ASDIRECTED [facility] Last Admin: 02/12/19 00:30 Dose: 100 mls/hr Lidocaine HCl (Xylocaine-Mpf 1%) Confirm Administered Dose 6 mls @ as directed .ROUTE .STK-MED ONE Stop: 02/12/19 09:26 Lidocaine HCl (Xylocaine-Mpf 1%) Confirm Administered Dose 5 mls @ as directed .ROUTE .STK-MED ONE Stop: 02/12/19 13:21 Cefazolin Sodium/Dextrose 2 gm (/ Premix) 50 mls @ 100 mls/hr IV Q8H [facility] Stop: 02/13/19 12:59 Last Admin: 02/13/19 13:17 Dose: 100 mls/hr Magnesium Sulfate 2 gm/ Premix 50 mls @ 25 mls/hr IV ONETIME ONE Stop: 02/13/19 12:38 Last Admin: 02/13/19 13:52 Dose: 25 mls/hr Magnesium Sulfate 2 gm/ Premix 50 mls @ 25 mls/hr IV ONETIME ONE Stop: 02/14/19 12:15 Last Admin: 02/14/19 10:33 Dose: 25 mls/hr Ketamine HCl (Ketalar) Confirm Administered Dose 500 mg .ROUTE .STK-MED ONE Stop: 02/12/19 12:09 Lidocaine HCl (Xylocaine 1%) 2 ml INJECT ONETIME ONE Stop: 02/15/19 11:31 Last Admin: 02/15/19 12:57 Dose: 2 ml Morphine Sulfate (Duramorph Pf) Confirm Administered Dose 10 mg .ROUTE .STK-MED ONE Stop: 02/12/19 09:26 Ondansetron HCl (Zofran) Confirm Administered Dose 4 mg .ROUTE .STK-MED ONE Stop: 02/12/19 09:27 Ondansetron HCl (Zofran) 4 mg IVPUSH ONETIME PRN PRN Reason: Nausea/Vomiting Stop: 02/12/19 17:00 Phenylephrine HCl (Phenylephrine In Ns 100 Mcg/Ml) Confirm Administered Dose 1 mg .ROUTE .STK-MED ONE Stop: 02/12/19 12:15 Propofol (Diprivan 20 Ml) Confirm Administered Dose 400 mg .ROUTE .STK-MED ONE Stop: 02/12/19 09:25 Triamcinolone Acetonide (Kenalog-40) 80 mg INJECT ONETIME ONE Stop: 02/15/19 11:29 Last Admin: 02/15/19 12:57 Dose: 80 mg - Exam Quality Assessment: Reports: DVT Prophylaxis. Denies: Supplemental Oxygen, Urine Catheter General: Reports: Alert, Oriented, Cooperative, No Acute Distress HEENT: Reports: Pupils Equal, Pupils Reactive, EOMI, Mucous Membr. Moist/[place] Neck: Reports: Supple, Trachea Midline, No JVD Lungs: Reports: Clear to Auscultation, Normal Respiratory Effort Cardiovascular: Reports: Regular Rate, Regular Rhythm GI/Abdominal Exam: Normal Bowel Sounds, Soft, Non-Tender, No Distention, No Abnormal Bruit (Female) Exam: Deferred Rectal (Female) Exam: Deferred Back Exam: Reports: Normal Inspection, Full Range of Motion Extremities: No Pedal Edema, Normal Capillary Refill, Leg Pain, Limited Range of Motion, Other (Bandage in place on right leg. Cooling pack in place. ) Skin: Reports: Warm, Dry, Intact Wound/Incisions: Reports: Dressing Dry and Intact, No Drainage Neurological: Reports: No New Focal Deficit Psy/Mental Status: Reports: Alert, Normal Affect, Normal Mood
== END 2019-02-15 16:45 | disposition home health service (06) | DRG 482 ==
LOC: JD.ED 15:05 → JD.MS 16:25
PROVIDERS: ADMIT Internal Medicine Cardiovascular Disease; ATTEND Internal Medicine Cardiovascular Disease
PROC: 0QS634Z Reposition Right Upper Femur with Internal Fixation Device, Percutaneous Approach (ICD-10-PCS; principal; 2019-02-12)
PROC: 3E0U3BZ Introduction of Anesthetic Agent into Joints, Percutaneous Approach (ICD-10-PCS; 2019-02-15)
PROC: 3E0U33Z Introduction of Anti-inflammatory into Joints, Percutaneous Approach (ICD-10-PCS; 2019-02-15)
PROC: 0S9C3ZZ Drainage of Right Knee Joint, Percutaneous Approach (ICD-10-PCS; 2019-02-15)
DX: S72.141A Displaced intertrochanteric fracture of right femur, initial encounter for closed fracture (principal); W00.0XXA Fall on same level due to ice and snow, initial encounter; M15.9 Polyosteoarthritis, unspecified; I10 Essential (primary) hypertension; E11.9 Type 2 diabetes mellitus without complications; M79.7 Fibromyalgia; E78.5 Hyperlipidemia, unspecified; M54.9 Dorsalgia, unspecified; G89.29 Other chronic pain; H54.7 Unspecified visual loss; M25.511 Pain in right shoulder; S60.511A Abrasion of right hand, initial encounter; Z90.49 Acquired absence of other specified parts of digestive tract; Z90.710 Acquired absence of both cervix and uterus; Z88.5 Allergy status to narcotic agent; Z88.8 Allergy status to other drugs, medicaments and biological substances; Z79.4 Long term (current) use of insulin; M25.551 Pain in right hip; Z79.899 Other long term (current) drug therapy
CPT/HCPCS: 36415; 73030; 73502; 80053; 85007; 85027; 86850; 86900; 86901; 96374; 99284; J1170; 51702; 51798; 76000; 76000-26; 80048; 81001; 82962; 83735; 85025; 85610; 85730; 86140; 87641; 93005; 96376; 97110-GP; 97116-GP; 97161-GP; 97165-GO; 97530-GP; 97535-GO; 99285; A9270-GY; C1713; C1776; J0690; J1815-GY; J2001; J2270; J2370; J2405; J2704; J3010; J3301; J3475; J3490; J7050; J7120

== ENCOUNTER 2019-02-28 12:26 | Emergency (ER) | payer MEDICARE, OTHER ==
--- NOTE | 2019-02-28 13:14 | EDM.PDOC ---
ED HPI GENERAL MEDICAL PROBLEM - General Chief Complaint: Respiratory Problem Stated Complaint: OXYGEN LEVEL IS 70 Time Seen by Provider: 02/28/19 12:38 Source of Information: Reports: Patient, Family (Daughter), RN Notes Reviewed History Limitations: Reports: No Limitations - History of Present Illness INITIAL COMMENTS - FREE TEXT/NARRATIVE: The patient's fell and broke her right hip on 02/11/2019. She underwent right hip pinning on 02/15/2019, and, according to the patient's daughter, the patient had intermittent episodes of low oxygen saturation while hospitalized. The patient therefore has a home finger pulse oximeter, although she is not on supplemental home oxygen. The patient states that her oxygen saturation was reading in the 70s to 80s percent, along with a heart rate reading in the 40s, this morning. The patient otherwise felt fine. She denies a recent history of dyspnea, chest pain, or palpitations. The daughter states that when she tried on her mother's pulse oximeter, it gave normal values. Here in the ED, the patient's oxygen saturation is found to be 97-99% on room air, with a heart rate of 62. Both the patient and her daughter acknowledges that the patient's hands are often cool. The patient also reports some constipation, and that she belches a lot. She is currently on tramadol. The patient's daughter is concerned because they have been told in the past that the patient's colon "points", and that she is at risk for twisting (volvulus?). The patient has not previously had an episode of volvulus. In addition, a visiting home nurse today told then that she did not have any bowel sounds in her left lower quadrant, even though bowel sounds were heard elsewhere on the abdomen. The patient's daughter is concerned that the patient's recent constipation and belching may represent an impaction. The patient denies having any abdominal pain, nausea, or emesis. The patient's PCP is Dr. Dwyer. Her Orthopedic Surgeon is Dr. Dowling. - Related Data Allergies Allergy/AdvReac Type Severity Reaction Status Date / Time oxycodone [Oxycodone] Allergy Rash Verified 02/11/19 15:17 pioglitazone Allergy Swelling Verified 02/11/19 15:17 rosiglitazone [Rosiglitazone] Allergy Swelling Verified 02/11/19 15:17 Home Meds: Home Meds Calcium Carbonate/Vitamin D3 [Caltrate 600 Plus D3 Tablet] 600 mg PO DAILY 09/28 [History] Furosemide [Lasix] 20 mg PO DAILY 09/28/14 [History] Gabapentin [Neurontin] 600 mg PO TID 09/28/14 [History] Insulin Lispro [Humalog] See Protocol SQ DAILY 09/28/14 [History] Losartan [Cozaar] 50 mg PO DAILY 09/28/14 [History] Ubidecarenone [Co Q-10] 100 mg PO DAILY 09/28/14 [History] Zinc Gluconate [Zinc] 50 mg PO DAILY 09/28/14 [History] traMADol [Ultram] 50 mg PO Q6H PRN 09/28/14 [History] [place] 7-Wqrfpikyb-Rjzcama E 1,000 mg PO BID 02/13/15 [History] Cholecalciferol (Vitamin D3) [Vitamin D3] 2,000 unit PO DAILY 07/19/17 [History] Cyclobenzaprine [Flexeril] 10 mg PO BID 07/19/17 [History] DULoxetine [Cymbalta] 30 mg PO DAILY 07/19/17 [History] Metoprolol Tartrate [Lopressor] 50 mg PO BID 07/19/17 [History] Simvastatin [Zocor] 20 mg PO BEDTIME 02/10/18 [History] Cbd Oil 10 drop PO TID 02/11/19 [History] Insulin Glarg,Human.Rec.Analog [Lantus Solostar] 32 unit SUBCUT DAILY 02/11/19 [ History] Acetaminophen/HYDROcodone [[place] 325-5 MG] 1 tab PO Q6H PRN #16 tablet 02/15/19 [Rx] Aspirin 325 mg PO BID #68 tab 02/15/19 [Rx] Past Medical History HEENT History: Reports: Impaired Vision Other HEENT History: pt wears glasses Cardiovascular History: Reports: High Cholesterol, Hypertension Gastrointestinal History: Reports: Diverticulosis (diverticulitis), Other (See Below) ("Spastic colon") [employer] History: Reports: Musculoskeletal History: Reports: Back Pain, Chronic, Fracture (right hip), Osteoarthritis Neurological History: Reports: Neuropathy, Diabetic Psychiatric History: Reports: Depression, Other (See Below) (Fibromyalgia) Endocrine/Metabolic History: Reports: Diabetes, Type II - Infectious Disease History Infectious Disease History: Reports: Chicken Pox, Measles - Past Surgical History GI Surgical History: Reports: Appendectomy (incidental to hysterectomy), Cholecystectomy (around 1999), Colonoscopy Female Surgical History: Reports: D&C (x >5), Hysterectomy (complete) Musculoskeletal Surgical History: Reports: Other (See Below) (Right hip pinning 02/15/2019) Social & Family History - Family History Family Medical History: Noncontributory - Tobacco Use Smoking Status *Q: Never Smoker Second Hand Smoke Exposure: Yes - Caffeine Use Caffeine Use: Reports: Coffee Other Caffeine Use: 4 -5 cups a day - Alcohol Use Alcohol Use History: No - Recreational Drug Use Recreational Drug Use: No - Living Situation & Occupation Living situation: Reports: , with Family (Daughter) Occupation: Retired ED ROS GENERAL - Review of Systems Review Of Systems: ROS reveals no pertinent complaints other than HPI. ED EXAM, GENERAL - Physical Exam Exam: See Below Exam Limited By: No Limitations General Appearance: Alert, WD/WN, No Apparent Distress Eye Exam: Bilateral Eye: EOMI, Normal Inspection Ears: Normal External Exam, Hearing Grossly Normal Nose: Normal Inspection Throat/Mouth: Normal Inspection, Normal Lips, Normal Voice, No Airway Compromise Head: Atraumatic, Normocephalic Neck: Normal Inspection, Full Range of Motion Respiratory/Chest: No Respiratory Distress, Lungs Clear, Normal Breath Sounds, No Accessory Muscle Use Cardiovascular: Normal Peripheral Pulses, Regular Rate, Rhythm, No Edema, No Gallop, No JVD, No Murmur, No Rub Peripheral Pulses: 4+: Radial (L), Radial (R) GI/Abdominal: Normal Bowel Sounds, Soft, Non-Tender, No Organomegaly, No Distention, No Abnormal Bruit, No Mass (Female) Exam: Deferred Rectal (Female) Exam: Deferred Back Exam: Normal Inspection, Full Range of Motion, NT Extremities: Normal Inspection, Normal Range of Motion, No Pedal Edema, Normal Capillary Refill Neurological: Alert, Oriented, Normal Cognition, No Motor/Sensory Deficits Psychiatric: Normal Affect Skin Exam: Warm, Dry, Intact, Normal Color, No Rash Course - Vital Signs Last Recorded V/S: Last Vital Signs Temp 35.2 C 02/28/19 12:39 Pulse 62 02/28/19 12:39 Resp 18 02/28/19 12:39 BP 133/56 L 02/28/19 12:39 Pulse Ox 99 02/28/19 12:39 - Orders/Labs/Meds Orders: Active Orders 24 hr Category Date Time Status Abdomen 1V Flat [CR] Stat Exams 02/28/19 13:09 Taken - Re-Assessments/Exams Free Text/Narrative Re-Assessment/Exam: 02/28/19 13:10 While the patient's finger oxygen saturation meter read a saturation in the 70s to 80s percent, with a heart rate in the 40s at home, her heart rate is in the 60s here, with an oxygen saturation of 97 to 99% on room air. Clearly, her oxygen saturations meter was providing an inaccurate value, likely because of poor arterial correlation. I offered to perform some bloodwork, but the patient declined - recent bloodwork was reportedly normal, with the exception of an elevated BUN. The patient's daughter would like, however, an abdominal x-ray to evaluate for constipation, as she is concerned that the patient is "impacted" even though the patient is able to have bowel movements. Her home visiting nurse had indicated that she had no bowel sounds in her left lower quadrant (an anatomic impossibility if bowel sounds are present anywhere else on the abdomen) . 02/28/19 13:45 Abdominal flat plate radiograph appears to demonstrate a moderate amount of stool in the left colon, with an otherwise nonspecific bowel gas pattern. Surgical bridger are noted in the right upper quadrant, consistent with a prior cholecystectomy. Right hip pinning hardware is noted. Degenerative changes are noted to both hips. There is scoliosis. Right chondrocalcinosis is noted. Formal read per the Radiologist pending. 02/28/19 13:53 X-ray results discussed with the patient and her family. As above, the patient does not appear to be significantly constipated. Her vitals have remained stable during this ED visit. I will discharge her home. Departure - Departure Time of Disposition: 13:58 Disposition: Home, Self-Care 01 Condition: Good Clinical Impression: Abnormal pulse oximetry - Discharge Information *PRESCRIPTION DRUG MONITORING PROGRAM REVIEWED*: Not Applicable *COPY OF PRESCRIPTION DRUG MONITORING REPORT IN PATIENT TONY: Not Applicable Referrals: Robb Dwyer MD [Primary Care Provider] - Wilian Dowling MD [Physician] - Forms: ED Department Discharge Additional Instructions: You were seen in the emergency room after your pulse oximeter read a saturation in the 70-80%, with a heart rate in the 40s. In the emergency room, your heart rate was found to be 62 with an oxygen saturation of 97-99%. This indicates that you're home pulse oximeter was not reading your actual oxygen saturation and heart rate correctly. This can happen if your fingers are cold. Workup in the ER included an x-ray of her abdomen to evaluate for constipation. The x-ray found a moderate amount of stool in the left colon, but no significant constipation, and no other significant abnormal findings. We recommend that you stay adequately hydrated. Take a stool softener as needed. Follow-up with your PCP, Dr. Dwyer, as needed. If any other problems, please do not hesitate to return to the ER. - My Orders Last 24 Hours: My Active Orders 02/28/19 13:09 Abdomen 1V Flat [CR] Stat - Assessment/Plan Last 24 Hours: My Active Orders 02/28/19 13:09 Abdomen 1V Flat [CR] Stat
[2019-02-28 14:30] VITALS: BP 104/49
--- NOTE | 2019-03-01 07:23 | CR ---
Abdomen: Supine view of the abdomen was obtained. Comparison: No prior study. Bowel gas pattern is unremarkable. Orthopedic hardware is seen within the right hip affixing previous fracture. Scoliosis and degenerative change are noted within the spine. Surgical clips are seen within the upper right abdomen compatible with previous cholecystectomy. Incidental phleboliths are seen within the pelvis. Slight vascular calcification is seen. Stool is noted within the left colon which is not unusual in amount. Impression: 1. Incidental findings. Diagnostic code #2
== END 2019-02-28 14:21 | disposition home or self-care (01) ==
LOC: JD.ED 12:26
DX: R09.89 Other specified symptoms and signs involving the circulatory and respiratory systems (principal); E78.00 Pure hypercholesterolemia, unspecified; I10 Essential (primary) hypertension; E11.40 Type 2 diabetes mellitus with diabetic neuropathy, unspecified; F32.9 Major depressive disorder, single episode, unspecified; Z77.22 Contact with and (suspected) exposure to environmental tobacco smoke (acute) (chronic); Z88.5 Allergy status to narcotic agent; Z88.8 Allergy status to other drugs, medicaments and biological substances; Z79.899 Other long term (current) drug therapy; Z79.4 Long term (current) use of insulin; Z79.82 Long term (current) use of aspirin
CPT/HCPCS: 74018; 74018-26; 99282; 99284-25

== ENCOUNTER 2021-09-21 12:04 | Inpatient (IN) | payer MEDICARE, OTHER ==
[2021-09-21] MEDS ORDERED: Sodium Chloride 0.9% 10 ML Syringe FLUSH PRN (12:24)
[2021-09-21] MEDS ORDERED: EPINEPHrine 1 MG/ML SDV IM PRN (12:34)
[2021-09-21] MEDS ORDERED: Famotidine 20 MG/2 ML SDV IVPUSH PRN (12:34)
[2021-09-21] MEDS ORDERED: methylPREDNISolone Sodium Succinate 125 MG/2 ML SDV IVPUSH PRN (12:34)
[2021-09-21] MEDS ORDERED: diphenhydrAMINE 50 MG/ML SDV IVPUSH PRN (12:34)
[2021-09-21] MEDS ORDERED: Bamlanivimab 700 MG, ETESEVIMAB 1,400 MG in Sodium Chloride 0.9% 100 ML IV ONE (12:34)
--- NOTE | 2021-09-21 12:39 | EDM.PDOC ---
ED HPI GENERAL MEDICAL PROBLEM - General Chief Complaint: Respiratory Problem Stated Complaint: COVID +/SOB/DIZZY/WEAK Time Seen by Provider: 09/21/21 12:14 Source of Information: Reports: Patient, RN Notes Reviewed History Limitations: Reports: No Limitations - History of Present Illness INITIAL COMMENTS - FREE TEXT/NARRATIVE: Patient is an 81-year-old female presenting to the emergency department for evaluation after receiving a diagnosis of COVID-19. She reports that yesterday she developed cough, fatigue, headache, and occasional dizziness. She was tested through the health unit this morning and received notice that her test is positive. She denies any significant shortness of breath except with exertion which she states is normal for her. She feels that her cough is actually improved since yesterday as well. She spoke with her primary care provider's nurse who recommended she come to the ER for monoclonal antibody infusion. Patient denies any chest pain. She has had no nausea, vomiting, or diarrhea. Patient did receive 2 Pfizer vaccinations early this year. She is not received a booster. Reports that she had a echocardiogram completed today and that her doc tor told her that her heart is "getting hard "but it is still functioning at the 60% ejection fraction. Headache Pain Score (Numeric/FACES): 8 - Related Data Allergies Allergy/AdvReac Type Severity Reaction Status Date / Time oxycodone [Oxycodone] Allergy Rash Verified 09/21/21 12:20 pioglitazone Allergy Swelling Verified 09/21/21 12:20 rosiglitazone [Rosiglitazone] Allergy Swelling Verified 09/21/21 12:20 Home Meds: Home Meds Calcium Carbonate/Vitamin D3 [Caltrate 600 Plus D3 Tablet] 600 mg PO DAILY 09/28/14 [History] Furosemide [Lasix] 20 mg PO DAILY 09/28/14 [History] Gabapentin [Neurontin] 600 mg PO TID 09/28/14 [History] Insulin Lispro [Humalog] 8 unit SQ TIDAC 09/28/14 [History] Losartan [Cozaar] 50 mg PO DAILY 09/28/14 [History] Ubidecarenone [Co Q-10] 100 mg PO DAILY 09/28/14 [History] Zinc Gluconate [Zinc] 50 mg PO DAILY 09/28/14 [History] traMADol [Ultram] 50 mg PO Q6H PRN 11/12/14 [History] Fackler 1-Urooztmih-Clpjpji E 1,000 mg PO BID 02/13/15 [History] Cholecalciferol (Vitamin D3) [Vitamin D3] 2,000 unit PO DAILY 07/19/17 [History] Cyclobenzaprine [Flexeril] 10 mg PO BID PRN 07/19/17 [History] DULoxetine [Cymbalta] 30 mg PO DAILY 07/19/17 [History] Metoprolol Tartrate [Lopressor] 75 mg PO BID 07/19/17 [History] Simvastatin [Zocor] 20 mg PO BEDTIME 02/10/18 [History] Cbd Oil 10 drop PO TID 02/11/19 [History] Insulin Glarg,Human.Rec.Analog [Lantus Solostar] 32 unit SUBCUT DAILY 02/11/19 [History] Acetaminophen/HYDROcodone [Harold 325-5 MG] 1 tab PO Q6H PRN #16 tablet 02/15/19 [Rx] Aspirin 325 mg PO BID #68 tab 02/15/19 [Rx] Past Medical History HEENT History: Reports: Impaired Vision Other HEENT History: pt wears glasses Cardiovascular History: Reports: High Cholesterol, Hypertension Gastrointestinal History: Reports: Diverticulosis, Other (See Below) Other Gastrointestinal History: "colon trouble"-per pt. was told to watch for a torsion, she stated her colon pointed [employer] History: Reports: Musculoskeletal History: Reports: Back Pain, Chronic, Fracture, Osteoarthritis Other Musculoskeletal History: chronic knee pain Neurological History: Reports: Neuropathy, Diabetic Psychiatric History: Reports: Depression, Other (See Below) Endocrine/Metabolic History: Reports: Diabetes, Type II - Infectious Disease History Infectious Disease History: Reports: Chicken Pox, Measles, Novel Coronavirus - Past Surgical History Cardiovascular Surgical History: Reports: None GI Surgical History: Reports: Appendectomy, Cholecystectomy, Colonoscopy Female Surgical History: Reports: D&C, Hysterectomy Musculoskeletal Surgical History: Reports: Other (See Below) Social & Family History - Family History Family Medical History: No Pertinent Family History - Tobacco Use Tobacco Use Status *Q: Never Tobacco User Second Hand Smoke Exposure: No - Caffeine Use Caffeine Use: Reports: Coffee Other Caffeine Use: 4 -5 cups a day - Recreational Drug Use Recreational Drug Use: No - Living Situation & Occupation Living situation: Reports: , with Family (Daughter) Occupation: Retired ED ROS GENERAL - Review of Systems Review Of Systems: See Below Constitutional: Reports: Weakness, Fatigue. Denies: Fever HEENT: Reports: No Symptoms Respiratory: Reports: Shortness of Breath, Cough. Denies: Pleuritic Chest Pain Cardiovascular: Reports: Dyspnea on Exertion, Lightheadedness. Denies: Chest Pain Endocrine: Reports: No Symptoms GI/Abdominal: Reports: Decreased Appetite. Denies: Abdominal Pain, Diarrhea, Nausea, Vomiting : Reports: No Symptoms. Denies: Dysuria Musculoskeletal: Reports: No Symptoms Skin: Reports: No Symptoms Neurological: Reports: Dizziness, Headache. Denies: Confusion Psychiatric: Reports: No Symptoms Hematologic/Lymphatic: Reports: No Symptoms Immunologic: Reports: No Symptoms ED EXAM, GENERAL - Physical Exam Exam: See Below Exam Limited By: No Limitations General Appearance: Alert, WD/WN, No Apparent Distress Eye Exam: Bilateral Eye: PERRL Respiratory/Chest: No Respiratory Distress, Lungs Clear, Normal Breath Sounds, No Accessory Muscle Use, Chest Non-Tender Cardiovascular: Normal Peripheral Pulses, Regular Rate, Rhythm, No Edema, No Gallop, No JVD, No Murmur, No Rub GI/Abdominal: Normal Bowel Sounds, Soft, Non-Tender, No Organomegaly, No Distention, No Abnormal Bruit, No Mass Neurological: Alert, Oriented, CN II-XII Intact, Normal Cognition, Normal Gait, Normal Reflexes, No Motor/Sensory Deficits Psychiatric: Normal Affect, Normal Mood Skin Exam: Warm, Dry, Intact, Normal Color, No Rash #1 Interpretation EKG Date: 09/21/21 Time: 13:10 Rhythm: NSR Rate (Beats/Min): 51 [place]: LAD-Left [place] Deviation (minimal) P-Wave: Present QRS: Normal ST-T: Normal QT: Normal Course - Vital Signs Last Recorded V/S: Last Vital Signs Temp 98.1 F 09/21/21 12:13 Pulse 50 L 09/21/21 15:12 Resp 18 09/21/21 15:12 BP 124/47 L 09/21/21 15:12 Pulse Ox 100 09/21/21 15:12 - Orders/Labs/Meds Orders: Active Orders 24 hr Category Date Time Status Peripheral IV Care [RC] . DIRECTED Care 09/21/21 12:25 Active Vital Signs [RC] Q15M Care 09/21/21 12:34 Active Chest 1V Frontal [CR] Stat Exams 09/21/21 12:35 Taken UA W/MICROSCOPIC [URIN] Stat Lab 09/21/21 12:25 Ordered Sodium Chloride 0.9% [Saline Flush] Med 09/21/21 12:24 Active 10 ml FLUSH ASDIRECTED PRN Peripheral IV Insertion Adult [OM.PC] Stat Oth 09/21/21 12:24 Ordered Medication Orders Insulin Human Lispro (Insulin Lispro 100 Unit/Ml 3 Ml Kwikpen) 0 unit SUBCUT QIDACANDBED [facility]KA; Protocol Sodium Chloride (Sodium Chloride 0.9% 10 Ml Syringe) 10 ml FLUSH ASDIRECTED PRN PRN Reason: Keep Vein Open Last Admin: 09/21/21 14:41 Dose: 10 ml Documented by: ISABEL Labs: Laboratory Tests 09/21/21 09/21/21 09/21/21 Range/Units 12:37 12:37 12:37 WBC 10.97 H (3.98-10.04) K/mm3 RBC 4.15 (3.98-5.22) M/mm3 Hgb 9.5 L D (11.2-15.7) gm/dl Hct 32.6 L (34.1-44.9) % MCV 78.6 L D (79.4-94.8) fl MCH 22.9 L (25.6-32.2) pg MCHC 29.1 L (32.2-35.5) g/dl RDW Std Deviation 44.0 (36.4-46.3) fL Plt Count 266 D (182-369) K/mm3 MPV 11.1 (9.4-12.3) fl Neut % (Auto) 76.7 H (34.0-71.1) % Lymph % (Auto) 11.0 L (19.3-51.7) % [place] % (Auto) 11.5 (4.7-12.5) % Eos % (Auto) 0.5 L (0.7-5.8) Baso % (Auto) 0.1 (0.1-1.2) % Neut # (Auto) 8.42 H (1.56-6.13) K/mm3 Lymph # (Auto) 1.21 (1.18-3.74) K/mm3 [place] # (Auto) 1.26 H (0.24-0.36) K/mm3 Eos # (Auto) 0.05 (0.04-0.36) K/mm3 Baso # (Auto) 0.01 (0.01-0.08) K/mm3 PT (9.7-12.0) SECONDS INR APTT (21.7-31.4) SECONDS D-Dimer, Quantitative 0.69 H (0.19-0.50) mg/L Sodium 138 (136-145) mEq/L Potassium 4.0 (3.5-5.1) mEq/L Chloride 103 (98-107) mEq/L Carbon Dioxide 30 (21-32) mEq/L Anion Gap 9.0 (5-15) BUN 13 (7-18) mg/dL Creatinine 1.0 (0.55-1.02) mg/dL Est Cr Clr Drug Dosing 40.60 mL/min Estimated GFR (MDRD) 53 (>60) mL/min BUN/Creatinine Ratio 13.0 L (14-18) Glucose 39 L* (70-99) mg/dL Calcium 8.9 (8.5-10.1) mg/dL Total Bilirubin 0.2 (0.2-1.0) mg/dL AST 17 (15-37) U/L ALT 15 (14-59) U/L Alkaline Phosphatase 114 (46-116) U/L Troponin I 0.056 (0.00-0.056) ng/mL C-Reactive Protein 1.0 (<1.0) mg/dL Total Protein 6.3 L (6.4-8.2) g/dl Albumin 3.3 L (3.4-5.0) g/dl Globulin 3.0 gm/dL Albumin/Globulin Ratio 1.1 (1-2) 09/21/21 Range/Units 13:22 WBC (3.98-10.04) K/mm3 RBC (3.98-5.22) M/mm3 Hgb (11.2-15.7) gm/dl Hct (34.1-44.9) % MCV (79.4-94.8) fl MCH (25.6-32.2) pg MCHC (32.2-35.5) g/dl RDW Std Deviation (36.4-46.3) fL Plt Count (182-369) K/mm3 MPV (9.4-12.3) fl Neut % (Auto) (34.0-71.1) % Lymph % (Auto) (19.3-51.7) % [place] % (Auto) (4.7-12.5) % Eos % (Auto) (0.7-5.8) Baso % (Auto) (0.1-1.2) % Neut # (Auto) (1.56-6.13) K/mm3 Lymph # (Auto) (1.18-3.74) K/mm3 [place] # (Auto) (0.24-0.36) K/mm3 Eos # (Auto) (0.04-0.36) K/mm3 Baso # (Auto) (0.01-0.08) K/mm3 PT 10.8 (9.7-12.0) SECONDS INR 0.97 APTT 27.7 (21.7-31.4) SECONDS D-Dimer, Quantitative (0.19-0.50) mg/L Sodium (136-145) mEq/L Potassium (3.5-5.1) mEq/L Chloride (98-107) mEq/L Carbon Dioxide (21-32) mEq/L Anion Gap (5-15) BUN (7-18) mg/dL Creatinine (0.55-1.02) mg/dL Est Cr Clr Drug Dosing mL/min Estimated GFR (MDRD) (>60) mL/min BUN/Creatinine Ratio (14-18) Glucose (70-99) mg/dL Calcium (8.5-10.1) mg/dL Total Bilirubin (0.2-1.0) mg/dL AST (15-37) U/L ALT (14-59) U/L Alkaline Phosphatase (46-116) U/L Troponin I (0.00-0.056) ng/mL C-Reactive Protein (<1.0) mg/dL Total Protein (6.4-8.2) g/dl Albumin (3.4-5.0) g/dl Globulin gm/dL Albumin/Globulin Ratio (1-2) Meds: Medications Generic Name Dose Route Start Last Admin Trade Name Freq PRN Reason Stop Dose Admin Insulin Human Lispro 0 unit 09/21/21 17:00 Insulin Lispro 100 Unit/Ml 3 Ml Kwikpen SUBCUT QIDACANDBED [facility] Protocol Sodium Chloride 10 ml 09/21/21 12:24 09/21/21 14:41 Sodium Chloride 0.9% 10 Ml Syringe FLUSH 10 ml ASDIRECTED PRN Administration Keep Vein Open Discontinued Medications Generic Name Dose Route Start Last Admin Trade Name Freq PRN Reason Stop Dose Admin Dexamethasone 6 mg 09/21/21 13:08 09/21/21 13:39 Dexamethasone 4 Mg Tab PO 09/21/21 13:09 6 mg ONETIME ONE Administration Dextrose/Water 25 ml 09/21/21 13:31 09/21/21 13:38 50% Dextrose In Water 50 Ml Syringe IVPUSH 09/21/21 13:32 25 ml ONETIME ONE Administration Diphenhydramine HCl 50 mg 09/21/21 12:34 Diphenhydramine 50 Mg/Ml Sdv IVPUSH ASDIRECTED PRN hypersensitivity reaction Epinephrine HCl 0.3 mg 09/21/21 12:34 Epinephrine 1 Mg/Ml Sdv IM ASDIRECTED PRN hypersensitivity reaction Famotidine 20 mg 09/21/21 12:34 Famotidine 20 Mg/2 Ml Sdv IVPUSH ASDIRECTED PRN hypersensitivity reaction Bamlanivimab 700 mg/ 160 mls @ 310 mls/hr 09/21/21 12:34 09/21/21 13:05 Etesevimab 1,400 mg/ Sodium IV 09/21/21 13:04 Not Given Chloride ONETIME ONE Methylprednisolone Sodium Succinate 125 mg 09/21/21 12:34 Methylprednisolone Sodium Succinate 125 Mg/2 Ml Sdv IVPUSH ASDIRECTED PRN hypersensitivity reaction Sodium Chloride 30 ml 09/21/21 12:45 Sodium Chloride 0.9% 10 Ml Syringe FLUSH ASDIRECTED [facility] - Re-Assessments/Exams Free Text/Narrative Re-Assessment/Exam: Patient is an 81-year-old female presenting to the emergency department for evaluation after being diagnosed with Covid. She has had cough and shortness of breath with exertion, however she states that shortness of breath is not abnormal for her. She is also felt weak, fatigued, and. dizzy. On arrival to ER, oxygen saturation is 97% on room air. She is afebrile. Exam is overall unremarkable. Ordered chest x-ray, blood work, EKG. I spoke with patientto provide information about bamlanivimab treatment I offered them the ``Patient and Caregiver NHUNG Ser[employer]ima[employer]ly Fact Sheet to read and review I stated the drug has been approved by an emergency use authorization (EUA) process and has not fully been FDA reviewed or approved The patient meets the EUA requirements I discussed there are other potential treatment options that are currently not FDA approved to treat COVID-19. Offered opportunity to ask questions and all questions were answered Patient voiced understanding and agreed to proceed with treatment 09/21/21 13:06 Prior to monoclonal antibody infusion beginning, patient's oxygen saturations have decreased to 85% on room air while awake but resting. Oxygen was applied at 2 L by nasal cannula and she is saturating in the mid to upper 90s. Since patient is hypoxic, she does not qualify for monoclonal antibody infusion. Alternatively, would recommend hospital admission for antiviral treatment. I will await results of work-up and speak with hospitalist regarding possible hospital admission. 09/21/21 13:43 Hematology significant for WBC slightly elevated 10.97, D-dimer 0.69 which when converted for age is normal. Glucose is low at 39. Troponin 0 0.056 which falls within the normal range. I have ordered 25 mils of D50 to be given IV. We will have her drink orange juice thereafter. Chest x-ray shows no visible Covid pneumonia at this time. EKG is normal sinus rhythm at 51 with no evidence of acute ischemia. 09/21/21 13:51 Case was discussed with hospitalist, Dr. Bridges. He has accepted the patient for admission. Patient is in agreement with this plan. Departure - Departure Time of Disposition: 13:51 Disposition: DC/Tfer to Acute Hospital 02 Condition: Fair Clinical Impression: COVID-19, Hypoxia, Hypoglycemia associated with diabetes - Discharge Information Sepsis Event Note (ED) - Evaluation Sepsis Screening Result: No Definite Risk - Focused Exam Vital Signs: Vital Signs Temp Pulse Resp BP Pulse Ox 09/21/21 12:13 98.1 F 53 L 16 118/67 97 - My Orders Last 24 Hours: My Active Orders 09/21/21 12:24 Sodium Chloride 0.9% [Saline Flush] 10 ml FLUSH ASDIRECTED PRN Peripheral IV Insertion Adult [OM.PC] Stat 09/21/21 12:25 Peripheral IV Care [RC] . DIRECTED UA W/MICROSCOPIC [URIN] Stat 09/21/21 12:34 Vital Signs [RC] Q15M 09/21/21 12:35 Chest 1V Frontal [CR] Stat - Assessment/Plan Last 24 Hours: My Active Orders 09/21/21 12:24 Sodium Chloride 0.9% [Saline Flush] 10 ml FLUSH ASDIRECTED PRN Peripheral IV Insertion Adult [OM.PC] Stat 09/21/21 12:25 Peripheral IV Care [RC] . DIRECTED UA W/MICROSCOPIC [URIN] Stat 09/21/21 12:34 Vital Signs [RC] Q15M 09/21/21 12:35 Chest 1V Frontal [CR] Stat
[2021-09-21] MEDS ORDERED: Sodium Chloride 0.9% 10 ML Syringe FLUSH SCH (12:45)
[2021-09-21] MEDS ORDERED: Dexamethasone 4 MG Tab PO ONE (13:08)
[2021-09-21] MEDS ORDERED: 50% Dextrose in Water 50 ML Syringe IVPUSH ONE (13:31)
[2021-09-21] MEDS ORDERED: Ondansetron 4 MG/2 ML SDV IV PRN (16:37)
[2021-09-21] MEDS ORDERED: Albuterol 0.083% 2.5 MG/3 ML Neb Soln NEB PRN (16:37)
[2021-09-21] MEDS ORDERED: Albuterol/Ipratropium 3.0-0.5 MG/3 ML Neb Soln NEB PRN (16:37)
--- NOTE | 2021-09-21 16:57 | PCM.HP.2 ---
H&P History of Present Illness - General Date of Service: 09/21/21 Admit Problem/Dx: Admission Diagnosis/Problem Admission Diagnosis/Problem Hypoxia - History of Present Illness Initial Comments - Free Text/Narative: 81-year-old female vaccinated in January and February against COVID-19 presents to the emergency department after receiving a diagnosis of COVID-19 this morning through the drive-through testing. She states that yesterday she started developing back pain, cough, headache, occasional dizziness, and fatigue. She was exposed to COVID-19 on Halloween by a grandchild. She denies any fever, chills, significant shortness of breath, or GI problems. She did have an echocardiogram that showed what sounds like diastolic dysfunction with normal ejection fraction. She states that she does have some dyspnea on exertion which is chronic. This is not worse. In the emergency department she initially was sent there to get monoclonal antibodies, but her oxygen saturations initially in the mid 90s dropped to the upper 80s. Unfortunately, she required 2 L nasal cannula to keep her oxygen saturations up and it was determined that she would benefit from hospitalization. Unfortunately she did not bring her medication list and we do not have an updated medication list at this time. Of note, she did have a blood sugar of 39 in the emergency department. She stated that it was 54 this morning. She has not had much of an appetite for approximately 1 year. She is on insulin. Headache Pain Score (Numeric/FACES): 8 - Related Data Allergies/Adverse Reactions: Allergies Allergy/AdvReac Type Severity Reaction Status Date / Time oxycodone [Oxycodone] Allergy Rash Verified 09/21/21 12:20 pioglitazone Allergy Swelling Verified 09/21/21 12:20 rosiglitazone [Rosiglitazone] Allergy Swelling Verified 09/21/21 12:20 Home Medications: Home Meds Calcium Carbonate/Vitamin D3 [Caltrate 600 Plus D3 Tablet] 600 mg PO DAILY 09/28/14 [History] Furosemide [Lasix] 20 mg PO DAILY 09/28/14 [History] Gabapentin [Neurontin] 600 mg PO TID 09/28/14 [History] Insulin Lispro [Humalog] 8 unit SQ TIDAC 09/28/14 [History] Losartan [Cozaar] 50 mg PO DAILY 09/28/14 [History] Ubidecarenone [Co Q-10] 100 mg PO DAILY 09/28/14 [History] Zinc Gluconate [Zinc] 50 mg PO DAILY 09/28/14 [History] traMADol [Ultram] 50 mg PO Q6H PRN 09/28/14 [History] [place] 2-Uxemjawog-Nevevla E 1,000 mg PO BID 02/13/15 [History] Cholecalciferol (Vitamin D3) [Vitamin D3] 2,000 unit PO DAILY 07/19/17 [History] Cyclobenzaprine [Flexeril] 10 mg PO BID PRN 07/19/17 [History] DULoxetine [Cymbalta] 30 mg PO DAILY 07/19/17 [History] Metoprolol Tartrate [Lopressor] 75 mg PO BID 07/19/17 [History] Simvastatin [Zocor] 20 mg PO BEDTIME 02/10/18 [History] Cbd Oil 10 drop PO TID 02/11/19 [History] Insulin Glarg,Human.Rec.Analog [Lantus Solostar] 32 unit SUBCUT DAILY 02/11/19 [History] Acetaminophen/HYDROcodone [[place] 325-5 MG] 1 tab PO Q6H PRN #16 tablet 02/15/19 [Rx] Aspirin 325 mg PO BID #68 tab 02/15/19 [Rx] Past Medical History HEENT History: Reports: Cataract, Impaired Vision Other HEENT History: pt wears glasses Cardiovascular History: Reports: High Cholesterol, Hypertension Respiratory History: Reports: SOB, Other (See Below) Other Respiratory History: stated for 4 months Gastrointestinal History: Reports: Colon Polyp, Diverticulosis, Other (See Belo w) Other Gastrointestinal History: spastic colon Genitourinary History: Reports: None [employer] History: Reports: Musculoskeletal History: Reports: Back Pain, Chronic, Fracture, Fibromyalgia, O steoarthritis Other Musculoskeletal History: chronic bilateralknee pain Neurological History: Reports: Neuropathy, Diabetic Psychiatric History: Reports: Depression, Other (See Below) Endocrine/Metabolic History: Reports: Diabetes, Type II - Infectious Disease History Infectious Disease History: Reports: Chicken Pox, Measles, Novel Coronavirus - Past Surgical History HEENT Surgical History: Reports: Cataract Surgery Cardiovascular Surgical History: Reports: None GI Surgical History: Reports: Appendectomy, Cholecystectomy, Colonoscopy Female Surgical History: Reports: D&C, Hysterectomy Musculoskeletal Surgical History: Reports: Hip Replacement, Other (See Below) Other Musculoskeletal Surgeries/Procedures:: Rt. hip Social & Family History - Family History Family Medical History: No Pertinent Family History - Tobacco Use Tobacco Use Status *Q: Never Tobacco User Second Hand Smoke Exposure: No - Caffeine Use Caffeine Use: Reports: Coffee Other Caffeine Use: 3 cups/day - Recreational Drug Use Recreational Drug Use: No - Living Situation & Occupation Living situation: Reports: , with Family (Daughter) Occupation: Retired H&P Review of Systems - Review of Systems: Review Of Systems: Comprehensive ROS is negative, except as noted in HPI. Exam - Exam Exam: See Below - Vital Signs Vital Signs: Last Vital Signs Temp 98.1 F 09/21/21 12:13 Pulse 50 L 09/21/21 15:12 Resp 18 09/21/21 15:12 BP 124/47 L 09/21/21 15:12 Pulse Ox 100 09/21/21 15:12 Weight: 174 lb 11.2 oz - Exam Quality Assessment: Supplemental Oxygen General: Alert, Oriented, 4 HEENT: Conjunctiva Clear, EACs Clear, EOMI, Hearing Intact, Mucosa Moist & [place] Lungs: Clear to Auscultation, Normal Respiratory Effort Cardiovascular: Regular Rate, Regular Rhythm GI/Abdominal Exam: Normal Bowel Sounds, Soft, Non-Tender, No Organomegaly, No Distention, No Abnormal Bruit, No Mass Extremities: Normal Inspection, Normal Range of Motion, Non-Tender, No Pedal Edema, Normal Capillary Refill Skin: Warm, Dry, Intact Neurological: Cranial Nerves Intact Neuro Extensive - Mental Status: Alert, Oriented x3, Normal Mood/Affect, Normal Cognition, Memory Intact Psychiatric: Alert, Normal Affect, Normal Mood - Patient Data Lab Results Last 24 hrs: Laboratory Results - last 24 hr 09/21/21 09/21/21 09/21/21 Range/Units 12:37 12:37 12:37 WBC 10.97 H (3.98-10.04) K/mm3 RBC 4.15 (3.98-5.22) M/mm3 Hgb 9.5 L D (11.2-15.7) gm/dl Hct 32.6 L (34.1-44.9) % MCV 78.6 L D (79.4-94.8) fl MCH 22.9 L (25.6-32.2) pg MCHC 29.1 L (32.2-35.5) g/dl RDW Std Deviation 44.0 (36.4-46.3) fL Plt Count 266 D (182-369) K/mm3 MPV 11.1 (9.4-12.3) fl Neut % (Auto) 76.7 H (34.0-71.1) % Lymph % (Auto) 11.0 L (19.3-51.7) % Dixie % (Auto) 11.5 (4.7-12.5) % Eos % (Auto) 0.5 L (0.7-5.8) Baso % (Auto) 0.1 (0.1-1.2) % Neut # (Auto) 8.42 H (1.56-6.13) K/mm3 Lymph # (Auto) 1.21 (1.18-3.74) K/mm3 Dixie # (Auto) 1.26 H (0.24-0.36) K/mm3 Eos # (Auto) 0.05 (0.04-0.36) K/mm3 Baso # (Auto) 0.01 (0.01-0.08) K/mm3 PT (9.7-12.0) SECONDS INR APTT (21.7-31.4) SECONDS D-Dimer, Quantitative 0.69 H (0.19-0.50) mg/L Sodium 138 (136-145) mEq/L Potassium 4.0 (3.5-5.1) mEq/L Chloride 103 (98-107) mEq/L Carbon Dioxide 30 (21-32) mEq/L Anion Gap 9.0 (5-15) BUN 13 (7-18) mg/dL Creatinine 1.0 (0.55-1.02) mg/dL Est Cr Clr Drug Dosing 40.60 mL/min Estimated GFR (MDRD) 53 (>60) mL/min BUN/Creatinine Ratio 13.0 L (14-18) Glucose 39 L* (70-99) mg/dL Calcium 8.9 (8.5-10.1) mg/dL Total Bilirubin 0.2 (0.2-1.0) mg/dL AST 17 (15-37) U/L ALT 15 (14-59) U/L Alkaline Phosphatase 114 (46-116) U/L Troponin I 0.056 (0.00-0.056) ng/mL C-Reactive Protein 1.0 (<1.0) mg/dL NT-Pro-B Natriuret Pep (0-450) pg/mL Total Protein 6.3 L (6.4-8.2) g/dl Albumin 3.3 L (3.4-5.0) g/dl Globulin 3.0 gm/dL Albumin/Globulin Ratio 1.1 (1-2) 09/21/21 09/21/21 Range/Units 13:22 13:55 WBC (3.98-10.04) K/mm3 RBC (3.98-5.22) M/mm3 Hgb (11.2-15.7) gm/dl Hct (34.1-44.9) % MCV (79.4-94.8) fl MCH (25.6-32.2) pg MCHC (32.2-35.5) g/dl RDW Std Deviation (36.4-46.3) fL Plt Count (182-369) K/mm3 MPV (9.4-12.3) fl Neut % (Auto) (34.0-71.1) % Lymph % (Auto) (19.3-51.7) % Dixie % (Auto) (4.7-12.5) % Eos % (Auto) (0.7-5.8) Baso % (Auto) (0.1-1.2) % Neut # (Auto) (1.56-6.13) K/mm3 Lymph # (Auto) (1.18-3.74) K/mm3 [place] # (Auto) (0.24-0.36) K/mm3 Eos # (Auto) (0.04-0.36) K/mm3 Baso # (Auto) (0.01-0.08) K/mm3 PT 10.8 (9.7-12.0) SECONDS INR 0.97 APTT 27.7 (21.7-31.4) SECONDS D-Dimer, Quantitative (0.19-0.50) mg/L Sodium (136-145) mEq/L Potassium (3.5-5.1) mEq/L Chloride (98-107) mEq/L Carbon Dioxide (21-32) mEq/L Anion Gap (5-15) BUN (7-18) mg/dL Creatinine (0.55-1.02) mg/dL Est Cr Clr Drug Dosing mL/min Estimated GFR (MDRD) (>60) mL/min BUN/Creatinine Ratio (14-18) Glucose (70-99) mg/dL Calcium (8.5-10.1) mg/dL Total Bilirubin (0.2-1.0) mg/dL AST (15-37) U/L ALT (14-59) U/L Alkaline Phosphatase (46-116) U/L Troponin I (0.00-0.056) ng/mL C-Reactive Protein (<1.0) mg/dL NT-Pro-B Natriuret Pep 1404 H (0-450) pg/mL Total Protein (6.4-8.2) g/dl Albumin (3.4-5.0) g/dl Globulin gm/dL Albumin/Globulin Ratio (1-2) Result Diagrams: 09/21/21 12:37 09/21/21 12:37 Sepsis Event Note - Evaluation Sepsis Screening Result: No Definite Risk - Focused Exam Vital Signs: Vital Signs Temp Pulse Resp BP Pulse Ox 09/21/21 15:12 50 L 18 124/47 L 100 09/21/21 12:13 98.1 F 53 L 16 118/67 97 - Problem List (1) COVID-19 SNOMED Code(s): 953223519 ICD Code: U07.1 - COVID-19 Status: Acute Current Visit: Yes (2) Hypoglycemia associated with diabetes SNOMED Code(s): 760988250, 716035538 ICD Code: E11.649 - TYPE 2 DIABETES MELLITUS WITH HYPOGLYCEMIA WITHOUT COMA Status: Acute Current Visit: Yes (3) Hypoxia SNOMED Code(s): 030702811 ICD Code: R09.02 - HYPOXEMIA Status: Acute Current Visit: Yes Problem List Initiated/Reviewed/Updated: Yes Orders Last 24hrs: Active Orders 24 hr Category Date Time Status Patient Status [ADT] Routine ADT 09/21/21 13:52 Active Blood Glucose Check, Bedside [RC] WITHMEALSANDBED Care 09/21/21 15:01 Active Nurse Communication: Isolation [RC] ASDIRECTED Care 09/21/21 16:39 Ordered Oxygen Therapy [RC] PRN Care 09/21/21 16:38 Ordered Peripheral IV Care [RC] . DIRECTED Care 09/21/21 12:25 Active RT Aerosol Therapy [RC] ASDIRECTED Care 09/21/21 16:41 Ordered RT Incentive Spirometry [RC] ASDIRECTED Care 09/21/21 16:37 Ordered Up With Assistance [RC] ASDIRECTED Care 09/21/21 16:37 Ordered VTE/DVT Education [RC] PER UNIT ROUTINE Care 09/21/21 16:38 Ordered Vital Signs [RC] Q15M Care 09/21/21 12:34 Active Vital Signs [RC] Q6H Care 09/21/21 16:38 Ordered Consistent Carbohydrate Diet [DIET] Diet 09/21/21 Dinner Ordered Chest 1V Frontal [CR] Stat Exams 09/21/21 12:35 Taken C-REACTIVE PROTEIN [CHEM] AM Lab 09/22/21 05:11 Ordered CBC WITH AUTO DIFF [HEME] AM Lab 09/22/21 05:11 Ordered CMP [COMPREHENSIVE METABOLIC PN,CMP] [CHEM] AM Lab 09/22/21 05:11 Ordered MAGNESIUM [CHEM] AM Lab 09/22/21 05:11 Ordered PHOSPHORUS [CHEM] AM Lab 09/22/21 05:11 Ordered UA W/MICROSCOPIC [URIN] Stat Lab 09/21/21 12:25 Ordered Acetaminophen [TylenoL] Med 09/21/21 16:37 Ordered 650 mg PO Q4H PRN Albuterol [Proventil Neb Soln] Med 09/21/21 16:37 Ordered 2.5 mg NEB Q2H PRN Albuterol/Ipratropium [DuoNeb 3.0-0.5 MG/3 ML] Med 09/21/21 16:37 Ordered 3 ml NEB Q4H PRN Enoxaparin [Lovenox] Med 09/22/21 09:00 Ordered 40 mg SUBCUT DAILY Insulin Lispro [HumaLOG] Med 09/21/21 17:00 Active See Protocol SUBCUT QIDACANDBED Ondansetron [Zofran] Med 09/21/21 16:37 Ordered 4 mg IV Q6H PRN Remdesivir 100 mg Med 09/22/21 16:45 Ordered Sodium Chloride 0.9% [Normal Saline] 100 ml IV Q24H Remdesivir 200 mg Med 09/21/21 16:37 Ordered Sodium Chloride 0.9% [Normal Saline] 250 ml IV ONETIME Sodium Chloride 0.9% [Saline Flush] Med 09/21/21 12:24 Active 10 ml FLUSH ASDIRECTED PRN dexAMETHasone Med 09/22/21 09:00 Ordered 6 mg PO DAILY Isolation [COMM] Stat Oth 09/21/21 16:38 Ordered Peripheral IV Insertion Adult [OM.PC] Stat Oth 09/21/21 12:24 Ordered Resuscitation Status Routine Resus Stat 09/21/21 16:37 Ordered Medication Orders Acetaminophen (Acetaminophen 325 Mg Tab) 650 mg PO Q4H PRN PRN Reason: Pain (Mild 1-3)/fever Albuterol (Albuterol 0.083% 2.5 Mg/3 Ml Neb Soln) 2.5 mg NEB Q2H PRN PRN Reason: Shortness Of Breath/wheezing Albuterol/Ipratropium (Albuterol/Ipratropium 3.0-0.5 Mg/3 Ml Neb Soln) 3 ml NEB Q4H PRN PRN Reason: Shortness Of Breath/wheezing Dexamethasone (Dexamethasone 4 Mg Tab) 6 mg PO DAILY [facility] Stop: 10/01/21 09:01 Enoxaparin Sodium (Enoxaparin 40 Mg/0.4 Ml Syringe) 40 mg SUBCUT DAILY [facility] Remdesivir 200 mg/ Sodium (Chloride) 250 mls @ 250 mls/hr IV ONETIME ONE Stop: 09/21/21 16:38 Remdesivir 100 mg/ Sodium (Chloride) 100 mls @ 100 mls/hr IV Q24H [facility] Stop: 09/25/21 17:44 Insulin Human Lispro (Insulin Lispro 100 Unit/Ml 3 Ml Kwikpen) 0 unit SUBCUT QIDACANDBED [facility]; Protocol Ondansetron HCl (Ondansetron 4 Mg/2 Ml Sdv) 4 mg IV Q6H PRN PRN Reason: Nausea/Vomiting Sodium Chloride (Sodium Chloride 0.9% 10 Ml Syringe) 10 ml FLUSH ASDIRECTED PRN PRN Reason: Keep Vein Open Last Admin: 09/21/21 14:41 Dose: 10 ml Documented by: ISABEL Assessment/Plan Comment:: 81-year-old female with 2-day history of symptoms consistent with COVID-19 presents the emergency department after being diagnosed for monoclonal antibodies. Patient was hypoxemic in the emergency department and admitted for treatment. COVID-19 hypoxemia Chest x-ray showed no signs of infiltrate at this time. Oxygen saturations were certainly low, but she is minimally symptomatic at this time. She did receive first 2 vaccinations of [employer] in January and February. She has not had a booster yet. She received dexamethasone 6 mg in the emergency department. She did not get monoclonal antibodies. Anemia Hemoglobin was 9.5. No history of blood loss. We will need to recheck and follow. Insulin-dependent type 2 diabetes Hypoglycemia on presentation to the emergency department Patient had a blood sugar in the 30s in the emergency department. She was given half amp D50 and juice. No repeat was done in the emergency department. She does not have her medications with her and is not sure what she is on. Hypertension/hyperlipidemia Blood pressures are well controlled here in the emergency department and on admission. Will need home medication list. Plan * Admit to medical miranda * FiO2 to keep SPO2 between 88 and 94%. * Routine COVID-19 care. * Remdesivir 200 mg IV now then 100 mg daily x4 days * Continue dexamethasone 6 mg every morning * When we receive the dosing of her home insulin we will cut it in half and monitor her blood sugars closely. Until then check blood sugars before every meal and nightly cover with sliding scale. * Get hemoglobin A1c. VTE prophylaxis with Lovenox CODE STATUS: DNR/DNI - Mortality Measure Prognosis:: Good
[2021-09-21] MEDS ORDERED: REMDESIVIR 200 MG in Sodium Chloride 0.9% 250 ML IV ONE (17:00)
[2021-09-21] MEDS: Insulin Lispro 100 Unit/ML 3 ML KwikPen SUBCUT SCH (18:06)
[2021-09-21] MEDS: Acetaminophen 325 MG Tab PO PRN (18:24)
[2021-09-22] MEDS: Acetaminophen 325 MG Tab PO PRN (04:22)
[2021-09-22] MEDS: Insulin Lispro 100 Unit/ML 3 ML KwikPen SUBCUT SCH ×6 (04:40→21:29)
--- NOTE | 2021-09-22 07:13 | CR ---
Chest: Portable view of the chest was obtained. Comparison: Prior chest x-ray of 02/13/15. Small nodule is noted within the right upper lung which is stable from prior chest x-ray compatible with granuloma. Lungs otherwise are clear with no acute parenchymal change. Slight scoliosis is noted within the spine. Bony structures are osteopenic. Heart size and mediastinum are within normal limits for portable technique. Surgical clips are seen from prior cholecystectomy. Impression: 1. Findings believed to be incidental as described above. 2. Nothing acute is seen. Diagnostic code #2
[2021-09-22] MEDS: Enoxaparin 40 MG/0.4 ML Syringe SUBCUT SCH (08:17)
[2021-09-22] MEDS ORDERED: Dexamethasone 4 MG Tab PO SCH (09:00)
[2021-09-22] MEDS ORDERED: Cyclobenzaprine 10 MG Tab PO PRN (09:23)
[2021-09-22] MEDS ORDERED: traMADol 50 MG Tab PO PRN (09:23)
[2021-09-22] MEDS: Metoprolol Tartrate 50 MG Tab PO SCH ×2 (09:43→21:25)
[2021-09-22] MEDS ORDERED: Gabapentin 600 MG Tab PO ONE (09:45)
[2021-09-22] MEDS ORDERED: Insulin Glargine,Hum.Rec.Anlog 100 UNIT/ML 3 ML Pen SUBCUT STA (12:59)
--- NOTE | 2021-09-22 13:02 | PCM.PN ---
- General Info Date of Service: 09/22/21 Admission Dx/Problem (Free Text): Admission Diagnosis/Problem Admission Diagnosis/Problem Hypoxia Subjective Update: Patient was on 1 L/min of O2 overnight. She was able to be weaned off this morning and oxygen saturations are in the 90s. She is having some issues with neuropathy and restless leg by laying in bed and had to walk to the floors last night. - Review of Systems General: Reports: No Symptoms HEENT: Reports: No Symptoms Pulmonary: Reports: No Symptoms Cardiovascular: Reports: No Symptoms Gastrointestinal: Reports: No Symptoms Musculoskeletal: Reports: Leg Pain Neurological: Reports: Tingling Psychiatric: Reports: No Symptoms - Patient Data Vitals - Most Recent: Last Vital Signs Temp 97.9 F 09/22/21 11:16 Pulse 58 L 09/22/21 11:16 Resp 18 09/22/21 11:16 BP 154/50 H 09/22/21 11:16 Pulse Ox 95 09/22/21 11:16 Weight - Most Recent: 171 lb 11.2 oz I&O - Last 24 Hours: Intake & Output 09/21/21 09/22/21 09/22/21 22:59 06:59 14:59 Intake Total 300 1100 Output Total 0 1600 Balance 300 -500 Lab Results Last 24 Hours: Laboratory Results - last 24 hr 09/21/21 09/21/21 09/21/21 Range/Units 12:37 12:37 13:22 WBC (3.98-10.04) K/mm3 RBC (3.98-5.22) M/mm3 Hgb (11.2-15.7) gm/dl Hct (34.1-44.9) % MCV (79.4-94.8) fl MCH (25.6-32.2) pg MCHC (32.2-35.5) g/dl RDW Std Deviation (36.4-46.3) fL Plt Count (182-369) K/mm3 MPV (9.4-12.3) fl Neut % (Auto) (34.0-71.1) % Lymph % (Auto) (19.3-51.7) % [place] % (Auto) (4.7-12.5) % Eos % (Auto) (0.7-5.8) Baso % (Auto) (0.1-1.2) % Neut # (Auto) (1.56-6.13) K/mm3 Lymph # (Auto) (1.18-3.74) K/mm3 [place] # (Auto) (0.24-0.36) K/mm3 Eos # (Auto) (0.04-0.36) K/mm3 Baso # (Auto) (0.01-0.08) K/mm3 PT 10.8 (9.7-12.0) SECONDS INR 0.97 APTT 27.7 (21.7-31.4) SECONDS D-Dimer, Quantitative 0.69 H (0.19-0.50) mg/L Sodium 138 (136-145) mEq/L Potassium 4.0 (3.5-5.1) mEq/L Chloride 103 (98-107) mEq/L Carbon Dioxide 30 (21-32) mEq/L Anion Gap 9.0 (5-15) BUN 13 (7-18) mg/dL Creatinine 1.0 (0.55-1.02) mg/dL Est Cr Clr Drug Dosing 40.60 mL/min Estimated GFR (MDRD) 53 (>60) mL/min BUN/Creatinine Ratio 13.0 L (14-18) Glucose 39 L* (70-99) mg/dL POC Glucose (70-99) mg/dL Calcium 8.9 (8.5-10.1) mg/dL Phosphorus (2.6-4.7) mg/dL Magnesium (1.8-2.4) mg/dL Total Bilirubin 0.2 (0.2-1.0) mg/dL AST 17 (15-37) U/L ALT 15 (14-59) U/L Alkaline Phosphatase 114 (46-116) U/L Troponin I 0.056 (0.00-0.056) ng/mL C-Reactive Protein 1.0 (<1.0) mg/dL NT-Pro-B Natriuret Pep (0-450) pg/mL Total Protein 6.3 L (6.4-8.2) g/dl Albumin 3.3 L (3.4-5.0) g/dl Globulin 3.0 gm/dL Albumin/Globulin Ratio 1.1 (1-2) Urine Color (Yellow) Urine Appearance (Clear) Urine pH (5.0-8.0) Ur Specific [place] (1.005-1.030) Urine Protein (Negative) Urine Glucose (UA) (Negative) Urine Ketones (Negative) Urine Occult Blood (Negative) Urine Nitrite (Negative) Urine Bilirubin (Negative) Urine Urobilinogen (0.2-1.0) Ur Leukocyte Esterase (Negative) Urine RBC (0-5) /hpf Urine WBC (0-5) /hpf Ur Squamous Epith Cells (0-5) /hpf Urine Bacteria (FEW) /hpf Urine Mucus (FEW) /hpf 09/21/21 09/21/21 09/21/21 Range/Units 13:55 17:16 20:49 WBC (3.98-10.04) K/mm3 RBC (3.98-5.22) M/mm3 Hgb (11.2-15.7) gm/dl Hct (34.1-44.9) % MCV (79.4-94.8) fl MCH (25.6-32.2) pg MCHC (32.2-35.5) g/dl RDW Std Deviation (36.4-46.3) fL Plt Count (182-369) K/mm3 MPV (9.4-12.3) fl Neut % (Auto) (34.0-71.1) % Lymph % (Auto) (19.3-51.7) % [place] % (Auto) (4.7-12.5) % Eos % (Auto) (0.7-5.8) Baso % (Auto) (0.1-1.2) % Neut # (Auto) (1.56-6.13) K/mm3 Lymph # (Auto) (1.18-3.74) K/mm3 [place] # (Auto) (0.24-0.36) K/mm3 Eos # (Auto) (0.04-0.36) K/mm3 Baso # (Auto) (0.01-0.08) K/mm3 PT (9.7-12.0) SECONDS INR APTT (21.7-31.4) SECONDS D-Dimer, Quantitative (0.19-0.50) mg/L Sodium (136-145) mEq/L Potassium (3.5-5.1) mEq/L Chloride (98-107) mEq/L Carbon Dioxide (21-32) mEq/L Anion Gap (5-15) BUN (7-18) mg/dL Creatinine (0.55-1.02) mg/dL Est Cr Clr Drug Dosing mL/min Estimated GFR (MDRD) (>60) mL/min BUN/Creatinine Ratio (14-18) Glucose (70-99) mg/dL POC Glucose 90 197 H (70-99) mg/dL Calcium (8.5-10.1) mg/dL Phosphorus (2.6-4.7) mg/dL Magnesium (1.8-2.4) mg/dL Total Bilirubin (0.2-1.0) mg/dL AST (15-37) U/L ALT (14-59) U/L Alkaline Phosphatase (46-116) U/L Troponin I (0.00-0.056) ng/mL C-Reactive Protein (<1.0) mg/dL NT-Pro-B Natriuret Pep 1404 H (0-450) pg/mL Total Protein (6.4-8.2) g/dl Albumin (3.4-5.0) g/dl Globulin gm/dL Albumin/Globulin Ratio (1-2) Urine Color (Yellow) Urine Appearance (Clear) Urine pH (5.0-8.0) Ur Specific [place] (1.005-1.030) Urine Protein (Negative) Urine Glucose (UA) (Negative) Urine Ketones (Negative) Urine Occult Blood (Negative) Urine Nitrite (Negative) Urine Bilirubin (Negative) Urine Urobilinogen (0.2-1.0) Ur Leukocyte Esterase (Negative) Urine RBC (0-5) /hpf Urine WBC (0-5) /hpf Ur Squamous Epith Cells (0-5) /hpf Urine Bacteria (FEW) /hpf Urine Mucus (FEW) /hpf 09/21/21 09/22/21 09/22/21 Range/Units 21:00 06:20 06:45 WBC 7.96 (3.98-10.04) K/mm3 RBC 4.59 (3.98-5.22) M/mm3 Hgb 10.5 L (11.2-15.7) gm/dl Hct 35.7 (34.1-44.9) % MCV 77.8 L (79.4-94.8) fl MCH 22.9 L (25.6-32.2) pg MCHC 29.4 L (32.2-35.5) g/dl RDW Std Deviation 43.4 (36.4-46.3) fL Plt Count 279 (182-369) K/mm3 MPV 11.8 (9.4-12.3) fl Neut % (Auto) 81.8 H (34.0-71.1) % Lymph % (Auto) 8.8 L (19.3-51.7) % [place] % (Auto) 9.2 (4.7-12.5) % Eos % (Auto) 0 L (0.7-5.8) Baso % (Auto) 0.1 (0.1-1.2) % Neut # (Auto) 6.51 H (1.56-6.13) K/mm3 Lymph # (Auto) 0.70 L (1.18-3.74) K/mm3 [place] # (Auto) 0.73 H (0.24-0.36) K/mm3 Eos # (Auto) 0.00 L (0.04-0.36) K/mm3 Baso # (Auto) 0.01 (0.01-0.08) K/mm3 PT (9.7-12.0) SECONDS INR APTT (21.7-31.4) SECONDS D-Dimer, Quantitative (0.19-0.50) mg/L Sodium (136-145) mEq/L Potassium (3.5-5.1) mEq/L Chloride (98-107) mEq/L Carbon Dioxide (21-32) mEq/L Anion Gap (5-15) BUN (7-18) mg/dL Creatinine (0.55-1.02) mg/dL Est Cr Clr Drug Dosing mL/min Estimated GFR (MDRD) (>60) mL/min BUN/Creatinine Ratio (14-18) Glucose (70-99) mg/dL POC Glucose 246 H (70-99) mg/dL Calcium (8.5-10.1) mg/dL Phosphorus (2.6-4.7) mg/dL Magnesium (1.8-2.4) mg/dL Total Bilirubin (0.2-1.0) mg/dL AST (15-37) U/L ALT (14-59) U/L Alkaline Phosphatase (46-116) U/L Troponin I (0.00-0.056) ng/mL C-Reactive Protein (<1.0) mg/dL NT-Pro-B Natriuret Pep (0-450) pg/mL Total Protein (6.4-8.2) g/dl Albumin (3.4-5.0) g/dl Globulin gm/dL Albumin/Globulin Ratio (1-2) Urine Color Yellow (Yellow) Urine Appearance Clear (Clear) Urine pH 7.0 (5.0-8.0) Ur Specific [place] 1.015 (1.005-1.030) Urine Protein Negative (Negative) Urine Glucose (UA) Negative (Negative) Urine Ketones Negative (Negative) Urine Occult Blood Negative (Negative) Urine Nitrite Negative (Negative) Urine Bilirubin Negative (Negative) Urine Urobilinogen 0.2 (0.2-1.0) Ur Leukocyte Esterase Negative (Negative) Urine RBC 0-5 (0-5) /hpf Urine WBC 0-5 (0-5) /hpf Ur Squamous Epith Cells 0-5 (0-5) /hpf Urine Bacteria Few (FEW) /hpf Urine Mucus Not seen (FEW) /hpf 09/22/21 09/22/21 Range/Units 06:45 11:19 WBC (3.98-10.04) K/mm3 RBC (3.98-5.22) M/mm3 Hgb (11.2-15.7) gm/dl Hct (34.1-44.9) % MCV (79.4-94.8) fl MCH (25.6-32.2) pg MCHC (32.2-35.5) g/dl RDW Std Deviation (36.4-46.3) fL Plt Count (182-369) K/mm3 MPV (9.4-12.3) fl Neut % (Auto) (34.0-71.1) % Lymph % (Auto) (19.3-51.7) % [place] % (Auto) (4.7-12.5) % Eos % (Auto) (0.7-5.8) Baso % (Auto) (0.1-1.2) % Neut # (Auto) (1.56-6.13) K/mm3 Lymph # (Auto) (1.18-3.74) K/mm3 [place] # (Auto) (0.24-0.36) K/mm3 Eos # (Auto) (0.04-0.36) K/mm3 Baso # (Auto) (0.01-0.08) K/mm3 PT (9.7-12.0) SECONDS INR APTT (21.7-31.4) SECONDS D-Dimer, Quantitative (0.19-0.50) mg/L Sodium 135 L (136-145) mEq/L Potassium 4.2 (3.5-5.1) mEq/L Chloride 101 (98-107) mEq/L Carbon Dioxide 25 (21-32) mEq/L Anion Gap 13.2 (5-15) BUN 20 H (7-18) mg/dL Creatinine 1.0 (0.55-1.02) mg/dL Est Cr Clr Drug Dosing 40.60 mL/min Estimated GFR (MDRD) 53 (>60) mL/min BUN/Creatinine Ratio 20.0 H (14-18) Glucose 279 H (70-99) mg/dL POC Glucose 260 H (70-99) mg/dL Calcium 9.1 (8.5-10.1) mg/dL Phosphorus 2.2 L (2.6-4.7) mg/dL Magnesium 2.1 (1.8-2.4) mg/dL Total Bilirubin 0.2 (0.2-1.0) mg/dL AST 13 L (15-37) U/L ALT 15 (14-59) U/L Alkaline Phosphatase 127 H (46-116) U/L Troponin I (0.00-0.056) ng/mL C-Reactive Protein 1.6 H* (<1.0) mg/dL NT-Pro-B Natriuret Pep (0-450) pg/mL Total Protein 6.7 (6.4-8.2) g/dl Albumin 3.3 L (3.4-5.0) g/dl Globulin 3.4 gm/dL Albumin/Globulin Ratio 1.0 (1-2) Urine Color (Yellow) Urine Appearance (Clear) Urine pH (5.0-8.0) Ur Specific [place] (1.005-1.030) Urine Protein (Negative) Urine Glucose (UA) (Negative) Urine Ketones (Negative) Urine Occult Blood (Negative) Urine Nitrite (Negative) Urine Bilirubin (Negative) Urine Urobilinogen (0.2-1.0) Ur Leukocyte Esterase (Negative) Urine RBC (0-5) /hpf Urine WBC (0-5) /hpf Ur Squamous Epith Cells (0-5) /hpf Urine Bacteria (FEW) /hpf Urine Mucus (FEW) /hpf Med Orders - Current: Current Medications Acetaminophen (Acetaminophen 325 Mg Tab) 650 mg PO Q4H PRN PRN Reason: Pain (Mild 1-3)/fever Last Admin: 09/22/21 04:22 Dose: 650 mg Documented by: Albuterol (Albuterol 0.083% 2.5 Mg/3 Ml Neb Soln) 2.5 mg NEB Q2H PRN PRN Reason: Shortness Of Breath/wheezing Albuterol/Ipratropium (Albuterol/Ipratropium 3.0-0.5 Mg/3 Ml Neb Soln) 3 ml NEB Q4H PRN PRN Reason: Shortness Of Breath/wheezing Cyclobenzaprine HCl (Cyclobenzaprine 10 Mg Tab) 10 mg PO BID PRN PRN Reason: Spasms Dexamethasone (Dexamethasone 4 Mg Tab) 6 mg PO DAILY [facility] Stop: 10/01/21 09:01 Last Admin: 09/22/21 08:19 Dose: 6 mg Documented by: Enoxaparin Sodium (Enoxaparin 40 Mg/0.4 Ml Syringe) 40 mg SUBCUT DAILY [facility] Last Admin: 09/22/21 08:17 Dose: 40 mg Documented by: Gabapentin (Gabapentin 600 Mg Tab) 600 mg PO TID [facility] Remdesivir 100 mg/ Sodium (Chloride) 100 mls @ 100 mls/hr IV Q24H [facility] Stop: 09/25/21 17:59 Insulin Human Lispro (Insulin Lispro 100 Unit/Ml 3 Ml Kwikpen) 0 unit SUBCUT QIDACANDBED [facility]; Protocol Last Admin: 09/22/21 12:21 Dose: 6 units Documented by: Metoprolol Tartrate (Metoprolol Tartrate 50 Mg Tab) 75 mg PO BID [facility] Last Admin: 09/22/21 09:43 Dose: 75 mg Documented by: Ondansetron HCl (Ondansetron 4 Mg/2 Ml Sdv) 4 mg IV Q6H PRN PRN Reason: Nausea/Vomiting Simvastatin (Simvastatin 20 Mg Tab) 20 mg PO BEDTIME [place] Sodium Chloride (Sodium Chloride 0.9% 10 Ml Syringe) 10 ml FLUSH ASDIRECTED PRN PRN Reason: Keep Vein Open Last Admin: 09/21/21 14:41 Dose: 10 ml Documented by: Tramadol HCl (Tramadol 50 Mg Tab) 50 mg PO Q6H PRN PRN Reason: Pain Discontinued Medications Dexamethasone (Dexamethasone 4 Mg Tab) 6 mg PO ONETIME ONE Stop: 09/21/21 13:09 Last Admin: 09/21/21 13:39 Dose: 6 mg Documented by: Dextrose/Water (50% Dextrose In Water 50 Ml Syringe) 25 ml IVPUSH ONETIME ONE Stop: 09/21/21 13:32 Last Admin: 09/21/21 13:38 Dose: 25 ml Documented by: Diphenhydramine HCl (Diphenhydramine 50 Mg/Ml Sdv) 50 mg IVPUSH ASDIRECTED PRN PRN Reason: hypersensitivity reaction Epinephrine HCl (Epinephrine 1 Mg/Ml Sdv) 0.3 mg IM ASDIRECTED PRN PRN Reason: hypersensitivity reaction Famotidine (Famotidine 20 Mg/2 Ml Sdv) 20 mg IVPUSH ASDIRECTED PRN PRN Reason: hypersensitivity reaction Gabapentin (Gabapentin 600 Mg Tab) 600 mg PO ONETIME ONE Stop: 09/22/21 09:46 Last Admin: 09/22/21 09:43 Dose: 600 mg Documented by: Bamlanivimab 700 mg/Etesevimab 1,400 mg/ Sodium Chloride 160 mls @ 310 mls/hr IV ONETIME ONE Stop: 09/21/21 13:04 Last Admin: 09/21/21 13:05 Dose: Not Given Documented by: Remdesivir 200 mg/ Sodium (Chloride) 250 mls @ 250 mls/hr IV ONETIME ONE Stop: 09/21/21 17:59 Last Admin: 09/21/21 17:35 Dose: 250 mls/hr Documented by: Methylprednisolone Sodium Succinate (Methylprednisolone Sodium Succinate 125 Mg/2 Ml Sdv) 125 mg IVPUSH ASDIRECTED PRN PRN Reason: hypersensitivity reaction Sodium Chloride (Sodium Chloride 0.9% 10 Ml Syringe) 30 ml FLUSH ASDIRECTED [place] - Exam Quality Assessment: No: Supplemental Oxygen General: Alert, Oriented HEENT: Pupils Equal, Mucous Membr. Moist/[place] Neck: Supple Lungs: Normal Respiratory Effort, Crackles (Minimal bibasilar) Cardiovascular: Regular Rate, Regular Rhythm GI/Abdominal Exam: Normal Bowel Sounds, Soft, Non-Tender, No Distention Extremities: Normal Inspection, Normal Range of Motion, Non-Tender, No Pedal Edema, Normal Capillary Refill Skin: Warm, Dry, Intact Neurological: No New Focal Deficit Psy/Mental Status: Alert, Normal Affect, Normal Mood - Patient Data Lab Results Last 24 hrs: Laboratory Results - last 24 hr 09/21/21 09/21/21 09/21/21 Range/Units 12:37 12:37 13:22 WBC (3.98-10.04) K/mm3 RBC (3.98-5.22) M/mm3 Hgb (11.2-15.7) gm/dl Hct (34.1-44.9) % MCV (79.4-94.8) fl MCH (25.6-32.2) pg MCHC (32.2-35.5) g/dl RDW Std Deviation (36.4-46.3) fL Plt Count (182-369) K/mm3 MPV (9.4-12.3) fl Neut % (Auto) (34.0-71.1) % Lymph % (Auto) (19.3-51.7) % [place] % (Auto) (4.7-12.5) % Eos % (Auto) (0.7-5.8) Baso % (Auto) (0.1-1.2) % Neut # (Auto) (1.56-6.13) K/mm3 Lymph # (Auto) (1.18-3.74) K/mm3 [place] # (Auto) (0.24-0.36) K/mm3 Eos # (Auto) (0.04-0.36) K/mm3 Baso # (Auto) (0.01-0.08) K/mm3 PT 10.8 (9.7-12.0) SECONDS INR 0.97 APTT 27.7 (21.7-31.4) SECONDS D-Dimer, Quantitative 0.69 H (0.19-0.50) mg/L Sodium 138 (136-145) mEq/L Potassium 4.0 (3.5-5.1) mEq/L Chloride 103 (98-107) mEq/L Carbon Dioxide 30 (21-32) mEq/L Anion Gap 9.0 (5-15) BUN 13 (7-18) mg/dL Creatinine 1.0 (0.55-1.02) mg/dL Est Cr Clr Drug Dosing 40.60 mL/min Estimated GFR (MDRD) 53 (>60) mL/min BUN/Creatinine Ratio 13.0 L (14-18) Glucose 39 L* (70-99) mg/dL POC Glucose (70-99) mg/dL Calcium 8.9 (8.5-10.1) mg/dL Phosphorus (2.6-4.7) mg/dL Magnesium (1.8-2.4) mg/dL Total Bilirubin 0.2 (0.2-1.0) mg/dL AST 17 (15-37) U/L ALT 15 (14-59) U/L Alkaline Phosphatase 114 (46-116) U/L Troponin I 0.056 (0.00-0.056) ng/mL C-Reactive Protein 1.0 (<1.0) mg/dL NT-Pro-B Natriuret Pep (0-450) pg/mL Total Protein 6.3 L (6.4-8.2) g/dl Albumin 3.3 L (3.4-5.0) g/dl Globulin 3.0 gm/dL Albumin/Globulin Ratio 1.1 (1-2) Urine Color (Yellow) Urine Appearance (Clear) Urine pH (5.0-8.0) Ur Specific [place] (1.005-1.030) Urine Protein (Negative) Urine Glucose (UA) (Negative) Urine Ketones (Negative) Urine Occult Blood (Negative) Urine Nitrite (Negative) Urine Bilirubin (Negative) Urine Urobilinogen (0.2-1.0) Ur Leukocyte Esterase (Negative) Urine RBC (0-5) /hpf Urine WBC (0-5) /hpf Ur Squamous Epith Cells (0-5) /hpf Urine Bacteria (FEW) /hpf Urine Mucus (FEW) /hpf 09/21/21 09/21/21 09/21/21 Range/Units 13:55 17:16 20:49 WBC (3.98-10.04) K/mm3 RBC (3.98-5.22) M/mm3 Hgb (11.2-15.7) gm/dl Hct (34.1-44.9) % MCV (79.4-94.8) fl MCH (25.6-32.2) pg MCHC (32.2-35.5) g/dl RDW Std Deviation (36.4-46.3) fL Plt Count (182-369) K/mm3 MPV (9.4-12.3) fl Neut % (Auto) (34.0-71.1) % Lymph % (Auto) (19.3-51.7) % [place] % (Auto) (4.7-12.5) % Eos % (Auto) (0.7-5.8) Baso % (Auto) (0.1-1.2) % Neut # (Auto) (1.56-6.13) K/mm3 Lymph # (Auto) (1.18-3.74) K/mm3 [place] # (Auto) (0.24-0.36) K/mm3 Eos # (Auto) (0.04-0.36) K/mm3 Baso # (Auto) (0.01-0.08) K/mm3 PT (9.7-12.0) SECONDS INR APTT (21.7-31.4) SECONDS D-Dimer, Quantitative (0.19-0.50) mg/L Sodium (136-145) mEq/L Potassium (3.5-5.1) mEq/L Chloride (98-107) mEq/L Carbon Dioxide (21-32) mEq/L Anion Gap (5-15) BUN (7-18) mg/dL Creatinine (0.55-1.02) mg/dL Est Cr Clr Drug Dosing mL/min Estimated GFR (MDRD) (>60) mL/min BUN/Creatinine Ratio (14-18) Glucose (70-99) mg/dL POC Glucose 90 197 H (70-99) mg/dL Calcium (8.5-10.1) mg/dL Phosphorus (2.6-4.7) mg/dL Magnesium (1.8-2.4) mg/dL Total Bilirubin (0.2-1.0) mg/dL AST (15-37) U/L ALT (14-59) U/L Alkaline Phosphatase (46-116) U/L Troponin I (0.00-0.056) ng/mL C-Reactive Protein (<1.0) mg/dL NT-Pro-B Natriuret Pep 1404 H (0-450) pg/mL Total Protein (6.4-8.2) g/dl Albumin (3.4-5.0) g/dl Globulin gm/dL Albumin/Globulin Ratio (1-2) Urine Color (Yellow) Urine Appearance (Clear) Urine pH (5.0-8.0) Ur Specific [place] (1.005-1.030) Urine Protein (Negative) Urine Glucose (UA) (Negative) Urine Ketones (Negative) Urine Occult Blood (Negative) Urine Nitrite (Negative) Urine Bilirubin (Negative) Urine Urobilinogen (0.2-1.0) Ur Leukocyte Esterase (Negative) Urine RBC (0-5) /hpf Urine WBC (0-5) /hpf Ur Squamous Epith Cells (0-5) /hpf Urine Bacteria (FEW) /hpf Urine Mucus (FEW) /hpf 09/21/21 09/22/21 09/22/21 Range/Units 21:00 06:20 06:45 WBC 7.96 (3.98-10.04) K/mm3 RBC 4.59 (3.98-5.22) M/mm3 Hgb 10.5 L (11.2-15.7) gm/dl Hct 35.7 (34.1-44.9) % MCV 77.8 L (79.4-94.8) fl MCH 22.9 L (25.6-32.2) pg MCHC 29.4 L (32.2-35.5) g/dl RDW Std Deviation 43.4 (36.4-46.3) fL Plt Count 279 (182-369) K/mm3 MPV 11.8 (9.4-12.3) fl Neut % (Auto) 81.8 H (34.0-71.1) % Lymph % (Auto) 8.8 L (19.3-51.7) % [place] % (Auto) 9.2 (4.7-12.5) % Eos % (Auto) 0 L (0.7-5.8) Baso % (Auto) 0.1 (0.1-1.2) % Neut # (Auto) 6.51 H (1.56-6.13) K/mm3 Lymph # (Auto) 0.70 L (1.18-3.74) K/mm3 [place] # (Auto) 0.73 H (0.24-0.36) K/mm3 Eos # (Auto) 0.00 L (0.04-0.36) K/mm3 Baso # (Auto) 0.01 (0.01-0.08) K/mm3 PT (9.7-12.0) SECONDS INR APTT (21.7-31.4) SECONDS D-Dimer, Quantitative (0.19-0.50) mg/L Sodium (136-145) mEq/L Potassium (3.5-5.1) mEq/L Chloride (98-107) mEq/L Carbon Dioxide (21-32) mEq/L Anion Gap (5-15) BUN (7-18) mg/dL Creatinine (0.55-1.02) mg/dL Est Cr Clr Drug Dosing mL/min Estimated GFR (MDRD) (>60) mL/min BUN/Creatinine Ratio (14-18) Glucose (70-99) mg/dL POC Glucose 246 H (70-99) mg/dL Calcium (8.5-10.1) mg/dL Phosphorus (2.6-4.7) mg/dL Magnesium (1.8-2.4) mg/dL Total Bilirubin (0.2-1.0) mg/dL AST (15-37) U/L ALT (14-59) U/L Alkaline Phosphatase (46-116) U/L Troponin I (0.00-0.056) ng/mL C-Reactive Protein (<1.0) mg/dL NT-Pro-B Natriuret Pep (0-450) pg/mL Total Protein (6.4-8.2) g/dl Albumin (3.4-5.0) g/dl Globulin gm/dL Albumin/Globulin Ratio (1-2) Urine Color Yellow (Yellow) Urine Appearance Clear (Clear) Urine pH 7.0 (5.0-8.0) Ur Specific [place] 1.015 (1.005-1.030) Urine Protein Negative (Negative) Urine Glucose (UA) Negative (Negative) Urine Ketones Negative (Negative) Urine Occult Blood Negative (Negative) Urine Nitrite Negative (Negative) Urine Bilirubin Negative (Negative) Urine Urobilinogen 0.2 (0.2-1.0) Ur Leukocyte Esterase Negative (Negative) Urine RBC 0-5 (0-5) /hpf Urine WBC 0-5 (0-5) /hpf Ur Squamous Epith Cells 0-5 (0-5) /hpf Urine Bacteria Few (FEW) /hpf Urine Mucus Not seen (FEW) /hpf 09/22/21 09/22/21 Range/Units 06:45 11:19 WBC (3.98-10.04) K/mm3 RBC (3.98-5.22) M/mm3 Hgb (11.2-15.7) gm/dl Hct (34.1-44.9) % MCV (79.4-94.8) fl MCH (25.6-32.2) pg MCHC (32.2-35.5) g/dl RDW Std Deviation (36.4-46.3) fL Plt Count (182-369) K/mm3 MPV (9.4-12.3) fl Neut % (Auto) (34.0-71.1) % Lymph % (Auto) (19.3-51.7) % [place] % (Auto) (4.7-12.5) % Eos % (Auto) (0.7-5.8) Baso % (Auto) (0.1-1.2) % Neut # (Auto) (1.56-6.13) K/mm3 Lymph # (Auto) (1.18-3.74) K/mm3 [place] # (Auto) (0.24-0.36) K/mm3 Eos # (Auto) (0.04-0.36) K/mm3 Baso # (Auto) (0.01-0.08) K/mm3 PT (9.7-12.0) SECONDS INR APTT (21.7-31.4) SECONDS D-Dimer, Quantitative (0.19-0.50) mg/L Sodium 135 L (136-145) mEq/L Potassium 4.2 (3.5-5.1) mEq/L Chloride 101 (98-107) mEq/L Carbon Dioxide 25 (21-32) mEq/L Anion Gap 13.2 (5-15) BUN 20 H (7-18) mg/dL Creatinine 1.0 (0.55-1.02) mg/dL Est Cr Clr Drug Dosing 40.60 mL/min Estimated GFR (MDRD) 53 (>60) mL/min BUN/Creatinine Ratio 20.0 H (14-18) Glucose 279 H (70-99) mg/dL POC Glucose 260 H (70-99) mg/dL Calcium 9.1 (8.5-10.1) mg/dL Phosphorus 2.2 L (2.6-4.7) mg/dL Magnesium 2.1 (1.8-2.4) mg/dL Total Bilirubin 0.2 (0.2-1.0) mg/dL AST 13 L (15-37) U/L ALT 15 (14-59) U/L Alkaline Phosphatase 127 H (46-116) U/L Troponin I (0.00-0.056) ng/mL C-Reactive Protein 1.6 H* (<1.0) mg/dL NT-Pro-B Natriuret Pep (0-450) pg/mL Total Protein 6.7 (6.4-8.2) g/dl Albumin 3.3 L (3.4-5.0) g/dl Globulin 3.4 gm/dL Albumin/Globulin Ratio 1.0 (1-2) Urine Color (Yellow) Urine Appearance (Clear) Urine pH (5.0-8.0) Ur Specific [place] (1.005-1.030) Urine Protein (Negative) Urine Glucose (UA) (Negative) Urine Ketones (Negative) Urine Occult Blood (Negative) Urine Nitrite (Negative) Urine Bilirubin (Negative) Urine Urobilinogen (0.2-1.0) Ur Leukocyte Esterase (Negative) Urine RBC (0-5) /hpf Urine WBC (0-5) /hpf Ur Squamous Epith Cells (0-5) /hpf Urine Bacteria (FEW) /hpf Urine Mucus (FEW) /hpf Result Diagrams: 09/22/21 06:45 09/22/21 06:45 Sepsis Event Note - Evaluation Sepsis Screening Result: No Definite Risk - Focused Exam Vital Signs: Vital Signs Temp Pulse Resp BP Pulse Ox Pulse Ox Pulse Ox 09/22/21 11:16 97.9 F 58 L 18 154/50 H 95 09/22/21 09:43 75 167/71 H 09/22/21 09:33 99 09/22/21 09:04 100 09/22/21 08:15 97.3 F 72 19 149/80 H 100 09/22/21 03:28 98.4 F 63 16 133/62 100 - Problem List & Annotations (1) COVID-19 SNOMED Code(s): 811805243 Code(s): U07.1 - COVID-19 Status: Acute Current Visit: Yes (2) Hypoglycemia associated with diabetes SNOMED Code(s): 013504146, 157880492 Code(s): E11.649 - TYPE 2 DIABETES MELLITUS WITH HYPOGLYCEMIA WITHOUT COMA Status: Acute Current Visit: Yes (3) Hypoxia SNOMED Code(s): 491488535 Code(s): R09.02 - HYPOXEMIA Status: Acute Current Visit: Yes - Problem List Review Problem List Initiated/Reviewed/Updated: Yes - My Orders Last 24 Hours: My Active Orders 09/21/21 15:01 Blood Glucose Check, Bedside [RC] WITHMEALSANDBED 09/21/21 16:37 RT Incentive Spirometry [RC] ASDIRECTED Up With Assistance [RC] ASDIRECTED Acetaminophen [TylenoL] 650 mg PO Q4H PRN Albuterol [Proventil Neb Soln] 2.5 mg NEB Q2H PRN Albuterol/Ipratropium [DuoNeb 3.0-0.5 MG/3 ML] 3 ml NEB Q4H PRN Ondansetron [Zofran] 4 mg IV Q6H PRN Resuscitation Status Routine 09/21/21 16:38 Oxygen Therapy [RC] PRN VTE/DVT Education [RC] PER UNIT ROUTINE Vital Signs [RC] 03,,, Isolation [COMM] Stat 09/21/21 16:41 RT Aerosol Therapy [RC] ASDIRECTED 09/21/21 Dinner Consistent Carbohydrate Diet [DIET] Insulin Lispro [HumaLOG] See Protocol SUBCUT QIDACANDBED 09/22/21 09:00 Enoxaparin [Lovenox] 40 mg SUBCUT DAILY dexAMETHasone 6 mg PO DAILY 09/22/21 09:23 Cyclobenzaprine [Flexeril] 10 mg PO BID PRN traMADol [Ultram] 50 mg PO Q6H PRN 09/22/21 09:30 Metoprolol Tartrate [Lopressor] 75 mg PO BID 09/22/21 15:00 Gabapentin [Neurontin] 600 mg PO TID 09/22/21 17:00 Remdesivir 100 mg Sodium Chloride 0.9% [Normal Saline] 100 ml IV Q24H 09/22/21 21:00 Simvastatin [Zocor] 20 mg PO BEDTIME - Plan Plan:: 81-year-old female with 2-day history of symptoms consistent with COVID-19 presents the emergency department after being diagnosed for monoclonal antibod ies. Patient was hypoxemic in the emergency department and admitted for treatment. 09/21/2021dmission COVID-19 hypoxemia Chest x-ray showed no signs of infiltrate at this time. Oxygen saturations were certainly low, but she is minimally symptomatic at this time. She did receive first 2 vaccinations of [place] in January and February. She has not had a booster yet. She received dexamethasone 6 mg in the emergency department. She did not get monoclonal antibodies. Anemia Hemoglobin was 9.5. No history of blood loss. We will need to recheck and follow. Insulin-dependent type 2 diabetes Hypoglycemia on presentation to the emergency department Patient had a blood sugar in the 30s in the emergency department. She was given half amp D50 and juice. No repeat was done in the emergency department. She does not have her medications with her and is not sure what she is on. Hypertension/hyperlipidemia Blood pressures are well controlled here in the emergency department and on admission. Will need home medication list. 09/22/2021 Patient is doing well this morning. She has been weaned off oxygen. Unfortunately, she is having some elevation in her blood sugars now that she has had her insulin held. We will restart it at a lower dose and continue to use sliding scale. Plan on another 2 days of remdesivir unless she requires oxygen. Because she is on room air and chest x-ray showed no acute findings consistent with Covid I am going to stop her dexamethasone. She already did receive the dose for today. With her blood sugars I think the risk is greater than the benefit at this stage. Plan * Admit to medical miranda * FiO2 to keep SPO2 between 88 and 94%. * Routine COVID-19 care. * Remdesivir 200 mg IV now then 100 mg daily x4 days * Stop dexamethasone * Glargine 16 units today and 20 units tomorrow. 5 units of lispro with meals and sliding scale. * Get hemoglobin A1c. VTE prophylaxis with Lovenox CODE STATUS: DNR/DNI
[2021-09-22 13:33] LABS: HEMOGLOBIN A1C 7.4 %
[2021-09-22] MEDS: Gabapentin 600 MG Tab PO SCH ×2 (16:04→21:28)
[2021-09-22] MEDS ORDERED: REMDESIVIR 100 MG in Sodium Chloride 0.9% 100 ML IV SCH (17:00)
[2021-09-22] MEDS ORDERED: Ibuprofen 200 MG Tab PO PRN (20:44)
[2021-09-22] MEDS ORDERED: Acetaminophen/HYDROcodone 325-5 MG Tab PO PRN (20:44)
[2021-09-22] MEDS ORDERED: Simvastatin 20 MG Tab PO SCH (21:00)
[2021-09-23] MEDS ORDERED: traZODone 50 MG Tab PO PRN (00:06)
[2021-09-23] MEDS: guaiFENesin/Dextromethorphan 100-10 MG/5 ML Soln 5 ML Cup PO PRN ×2 (00:32→09:11)
[2021-09-23] MEDS: Insulin Lispro 100 Unit/ML 3 ML KwikPen SUBCUT SCH ×4 (07:23→12:12)
[2021-09-23] MEDS ORDERED: Insulin Glargine,Hum.Rec.Anlog 100 UNIT/ML 3 ML Pen SUBCUT SCH (09:00)
[2021-09-23] MEDS: Enoxaparin 40 MG/0.4 ML Syringe SUBCUT SCH (09:07)
[2021-09-23] MEDS: Metoprolol Tartrate 50 MG Tab PO SCH (09:08)
[2021-09-23] MEDS: Gabapentin 600 MG Tab PO SCH ×2 (09:08→13:46)
[2021-09-23 09:13] VITALS: BP 158/72; PULSE 65
--- NOTE | 2021-09-23 11:10 | PCM.DCSUM1 ---
Discharge Summary - Hospital Course HPI Initial Comments: 81-year-old female vaccinated in January and February against COVID-19 presents to the emergency department after receiving a diagnosis of COVID-19 this morning through the drive-through testing. She states that yesterday she started developing back pain, cough, headache, occasional dizziness, and fatigue. She was exposed to COVID-19 on Halloween by a grandchild. She denies any fever, chills, significant shortness of breath, or GI problems. She did have an echocardiogram that showed what sounds like diastolic dysfunction with normal ejection fraction. She states that she does have some dyspnea on exertion which is chronic. This is not worse. In the emergency department she initially was sent there to get monoclonal antibodies, but her oxygen saturations initially in the mid 90s dropped to the upper 80s. Unfortunately, she required 2 L nasal can nula to keep her oxygen saturations up and it was determined that she would benefit from hospitalization. Unfortunately she did not bring her medication list and we do not have an updated medication list at this time. Of note, she did have a blood sugar of 39 in the emergency department. She stated that it was 54 this morning. She has not had much of an appetite for approximately 1 year. She is on insulin. Assessment/Plan Comment:: 81-year-old female with 2-day history of symptoms consistent with COVID-19 presents the emergency department after being diagnosed for monoclonal antibodies. Patient was hypoxemic in the emergency department and admitted for treatment. COVID-19 hypoxemia Chest x-ray showed no signs of infiltrate at this time. Oxygen saturations were certainly low, but she is minimally symptomatic at this time. She did receive first 2 vaccinations of [place] in January and February. She has not had a booster yet. She received dexamethasone 6 mg in the emergency department. She did not get monoclonal antibodies. Anemia Hemoglobin was 9.5. No history of blood loss. We will need to recheck and follow. Insulin-dependent type 2 diabetes Hypoglycemia on presentation to the emergency department Patient had a blood sugar in the 30s in the emergency department. She was given half amp D50 and juice. No repeat was done in the emergency department. She does not have her medications with her and is not sure what she is on. Hypertension/hyperlipidemia Blood pressures are well controlled here in the emergency department and on admission. Will need home medication list. Plan * Admit to medical miranda * FiO2 to keep SPO2 between 88 and 94%. * Routine COVID-19 care. * Remdesivir 200 mg IV now then 100 mg daily x4 days * Continue dexamethasone 6 mg every morning * When we receive the dosing of her home insulin we will cut it in half and monitor her blood sugars closely. Until then check blood sugars before every meal and nightly cover with sliding scale. * Get hemoglobin A1c. VTE prophylaxis with Lovenox CODE STATUS: DNR/DNI Diagnosis: Stroke: No - Discharge Data Discharge Date: 09/23/21 Discharge Disposition: Home, Self-Care 01 Condition: Good - Referral to Home Health Primary Care Physician: Robb Dwyer MD - Discharge Diagnosis/Problem(s) (1) COVID-19 SNOMED Code(s): 006940830 ICD Code: U07.1 - COVID-19 Status: Acute Current Visit: Yes (2) Hypoglycemia associated with diabetes SNOMED Code(s): 323048406, 706475839 ICD Code: E11.649 - TYPE 2 DIABETES MELLITUS WITH HYPOGLYCEMIA WITHOUT COMA Status: Acute Current Visit: Yes (3) Hypoxia SNOMED Code(s): 485742393 ICD Code: R09.02 - HYPOXEMIA Status: Acute Current Visit: Yes - Patient Summary/Data Hospital Course: Plan:: 81-year-old female with 2-day history of symptoms consistent with COVID-19 presents the emergency department after being diagnosed for monoclonal antibodies. Patient was hypoxemic in the emergency department and admitted for treatment. 1admission COVID-19 hypoxemia Chest x-ray showed no signs of infiltrate at this time. Oxygen saturations were certainly low, but she is minimally symptomatic at this time. She did receive first 2 vaccinations of [place] in January and February. She has not had a booster yet. She received dexamethasone 6 mg in the emergency department. She did not get monoclonal antibodies. Anemia Hemoglobin was 9.5. No history of blood loss. We will need to recheck and follow. Insulin-dependent type 2 diabetes Hypoglycemia on presentation to the emergency department Patient had a blood sugar in the 30s in the emergency department. She was given half amp D50 and juice. No repeat was done in the emergency department. She does not have her medications with her and is not sure what she is on. Hypertension/hyperlipidemia Blood pressures are well controlled here in the emergency department and on admission. Will need home medication list. 09/22/2021 Patient is doing well this morning. She has been weaned off oxygen. Unfortunately, she is having some elevation in her blood sugars now that she has had her insulin held. We will restart it at a lower dose and continue to use sliding scale. Plan on another 2 days of remdesivir unless she requires oxygen. Because she is on room air and chest x-ray showed no acute findings consistent with Covid I am going to stop her dexamethasone. She already did receive the dose for today. With her blood sugars I think the risk is greater than the benefit at this stage. Plan * Admit to medical miranda * FiO2 to keep SPO2 between 88 and 94%. * Routine COVID-19 care. * Remdesivir 200 mg IV now then 100 mg daily x4 days * Stop dexamethasone * Glargine 16 units today and 20 units tomorrow. 5 units of lispro with meals a nd sliding scale. * Get hemoglobin A1c. VTE prophylaxis with Lovenox CODE STATUS: DNR/DNI 09/23/2021ay of discharge Patient continues to do well. She has now been off of oxygen for over 24 hours. She is had 2 doses of remdesivir and will get a third dose today before discharge. Legs are much better after getting her blood sugars under better control. Patient will go home today with follow-up of her primary care provider. She is still at risk of worsening due to the early presentation of her illness. Fortunately, she should have some improved protection due to her vaccination status although it is with Pfizer. - Patient Instructions Diet: Usual Diet as Tolerated Activity: As Tolerated Driving: Do Not Drive Showering/Bathing: May Shower Notify Provider of: Fever, Nausea and/or Vomiting Other/Special Instructions: If you become hypoxemic please return to the emergency department. That means if your oxygen level drops below 90 you should be evaluated. - Discharge Plan *PRESCRIPTION DRUG MONITORING PROGRAM REVIEWED*: No *COPY OF PRESCRIPTION DRUG MONITORING REPORT IN PATIENT TONY: No Home Medications: Home Meds Calcium Carbonate/Vitamin D3 [Caltrate 600 Plus D3 Tablet] 600 mg PO DAILY 09/28/14 [History] Furosemide [Lasix] 20 mg PO DAILY 09/28/14 [History] Gabapentin [Neurontin] 600 mg PO TID 09/28/14 [History] Insulin Lispro [Humalog] 8 unit SQ TIDAC 09/28/14 [History] Ubidecarenone [Co Q-10] 100 mg PO DAILY 09/28/14 [History] Zinc Gluconate [Zinc] 50 mg PO DAILY 09/28/14 [History] traMADol [Ultram] 50 mg PO Q6H PRN 09/28/14 [History] [place] 7-Hhurmicdp-Lclbcbg E 1,000 mg PO BID 02/13/15 [History] Cholecalciferol (Vitamin D3) [Vitamin D3] 2,000 unit PO DAILY 07/19/17 [History] Cyclobenzaprine [Flexeril] 10 mg PO BID PRN 07/19/17 [History] Metoprolol Tartrate [Lopressor] 50 mg PO BID 07/19/17 [History] Simvastatin [Zocor] 20 mg PO BEDTIME 02/10/18 [History] Cbd Oil 10 drop PO TID 02/11/19 [History] Insulin Glarg,Human.Rec.Analog [Lantus Solostar] 27 unit SUBCUT DAILY 02/11/19 [History] Acetaminophen/HYDROcodone [[place] 325-5 MG] 325 tab PO Q6H PRN 09/22/21 [History] Aspirin 81 mg PO BID 09/22/21 [History] Ibuprofen [Ibu-200] 200 mg PO Q4HR PRN 09/22/21 [History] Nystatin 100,000 units TOP TID PRN 09/22/21 [History] Oxygen Therapy Mode: Room Air Patient Handouts: COVID-19, 10 Things You Can Do to Manage Your COVID-19 Symptoms at Home - [facility] (06/01/2021), Sepsis, Diagnosis, Adult, COVID-19: How to Protect Yourself and Others - [facility] Forms: ED Department Discharge Referrals: Robb Dwyer MD [Primary Care Provider] - - Discharge Summary/Plan Comment DC Time >30 min.: Yes Total # of Minutes for Discharge Time: 35 minutes Total time spent includes seeing the patient, doing discharge paperwork, and arranging care. - General Info Date of Service: 09/23/21 Admission Dx/Problem (Free Text: Admission Diagnosis/Problem Admission Diagnosis/Problem Hypoxia Subjective Update: Patient is doing well without any complaints. She is off of O2 and has no respiratory complaints. Functional Status: Reports: Pain Controlled - Review of Systems General: Reports: No Symptoms HEENT: Reports: No Symptoms Pulmonary: Reports: No Symptoms Cardiovascular: Reports: No Symptoms Gastrointestinal: Reports: No Symptoms Musculoskeletal: Reports: No Symptoms - Patient Data Vitals - Most Recent: Last Vital Signs Temp 98.2 F 09/23/21 03:30 Pulse 65 09/23/21 09:08 Resp 14 09/23/21 03:30 BP 158/72 H 09/23/21 09:08 Pulse Ox 97 09/23/21 03:30 Weight - Most Recent: 169 lb 11.2 oz I&O - Last 24 hours: Intake & Output 09/22/21 09/23/21 09/23/21 23:59 06:59 14:59 Intake Total Output Total Balance Lab Results - Last 24 hrs: Laboratory Results - last 24 hr 09/22/21 09/22/21 09/22/21 Range/Units 06:45 16:10 21:23 WBC (3.98-10.04) K/mm3 RBC (3.98-5.22) M/mm3 Hgb (11.2-15.7) gm/dl Hct (34.1-44.9) % MCV (79.4-94.8) fl MCH (25.6-32.2) pg MCHC (32.2-35.5) g/dl RDW Std Deviation (36.4-46.3) fL Plt Count (182-369) K/mm3 MPV (9.4-12.3) fl Neut % (Auto) (34.0-71.1) % Lymph % (Auto) (19.3-51.7) % Noble % (Auto) (4.7-12.5) % Eos % (Auto) (0.7-5.8) Baso % (Auto) (0.1-1.2) % Neut # (Auto) (1.56-6.13) K/mm3 Lymph # (Auto) (1.18-3.74) K/mm3 Noble # (Auto) (0.24-0.36) K/mm3 Eos # (Auto) (0.04-0.36) K/mm3 Baso # (Auto) (0.01-0.08) K/mm3 Manual Slide Review D-Dimer, Quantitative (0.19-0.50) mg/L Sodium (136-145) mEq/L Potassium (3.5-5.1) mEq/L Chloride (98-107) mEq/L Carbon Dioxide (21-32) mEq/L Anion Gap (5-15) BUN (7-18) mg/dL Creatinine (0.55-1.02) mg/dL Est Cr Clr Drug Dosing mL/min Estimated GFR (MDRD) (>60) mL/min BUN/Creatinine Ratio (14-18) Glucose (70-99) mg/dL POC Glucose 196 H 197 H (70-99) mg/dL Hemoglobin A1c 7.4 H ( - 5.6) % Calcium (8.5-10.1) mg/dL Magnesium (1.8-2.4) mg/dL Total Bilirubin (0.2-1.0) mg/dL AST (15-37) U/L ALT (14-59) U/L Alkaline Phosphatase (46-116) U/L C-Reactive Protein (<1.0) mg/dL Total Protein (6.4-8.2) g/dl Albumin (3.4-5.0) g/dl Globulin gm/dL Albumin/Globulin Ratio (1-2) 09/23/21 09/23/21 09/23/21 Range/Units 06:54 07:24 07:24 WBC 10.11 H (3.98-10.04) K/mm3 RBC 4.43 (3.98-5.22) M/mm3 Hgb 10.0 L (11.2-15.7) gm/dl Hct 33.8 L (34.1-44.9) % MCV 76.3 L (79.4-94.8) fl MCH 22.6 L (25.6-32.2) pg MCHC 29.6 L (32.2-35.5) g/dl RDW Std Deviation 43.2 (36.4-46.3) fL Plt Count 314 (182-369) K/mm3 MPV 11.4 (9.4-12.3) fl Neut % (Auto) 73.8 H (34.0-71.1) % Lymph % (Auto) 15.0 L (19.3-51.7) % Noble % (Auto) 11.0 (4.7-12.5) % Eos % (Auto) 0 L (0.7-5.8) Baso % (Auto) 0.1 (0.1-1.2) % Neut # (Auto) 7.46 H (1.56-6.13) K/mm3 Lymph # (Auto) 1.52 (1.18-3.74) K/mm3 Noble # (Auto) 1.11 H (0.24-0.36) K/mm3 Eos # (Auto) 0.00 L (0.04-0.36) K/mm3 Baso # (Auto) 0.01 (0.01-0.08) K/mm3 Manual Slide Review Normal smear D-Dimer, Quantitative 0.42 (0.19-0.50) mg/L Sodium (136-145) mEq/L Potassium (3.5-5.1) mEq/L Chloride (98-107) mEq/L Carbon Dioxide (21-32) mEq/L Anion Gap (5-15) BUN (7-18) mg/dL Creatinine (0.55-1.02) mg/dL Est Cr Clr Drug Dosing mL/min Estimated GFR (MDRD) (>60) mL/min BUN/Creatinine Ratio (14-18) Glucose (70-99) mg/dL POC Glucose 120 H (70-99) mg/dL Hemoglobin A1c ( - 5.6) % Calcium (8.5-10.1) mg/dL Magnesium (1.8-2.4) mg/dL Total Bilirubin (0.2-1.0) mg/dL AST (15-37) U/L ALT (14-59) U/L Alkaline Phosphatase (46-116) U/L C-Reactive Protein (<1.0) mg/dL Total Protein (6.4-8.2) g/dl Albumin (3.4-5.0) g/dl Globulin gm/dL Albumin/Globulin Ratio (1-2) 09/23/21 Range/Units 07:24 WBC (3.98-10.04) K/mm3 RBC (3.98-5.22) M/mm3 Hgb (11.2-15.7) gm/dl Hct (34.1-44.9) % MCV (79.4-94.8) fl MCH (25.6-32.2) pg MCHC (32.2-35.5) g/dl RDW Std Deviation (36.4-46.3) fL Plt Count (182-369) K/mm3 MPV (9.4-12.3) fl Neut % (Auto) (34.0-71.1) % Lymph % (Auto) (19.3-51.7) % Noble % (Auto) (4.7-12.5) % Eos % (Auto) (0.7-5.8) Baso % (Auto) (0.1-1.2) % Neut # (Auto) (1.56-6.13) K/mm3 Lymph # (Auto) (1.18-3.74) K/mm3 Noble # (Auto) (0.24-0.36) K/mm3 Eos # (Auto) (0.04-0.36) K/mm3 Baso # (Auto) (0.01-0.08) K/mm3 Manual Slide Review D-Dimer, Quantitative (0.19-0.50) mg/L Sodium 139 (136-145) mEq/L Potassium 3.7 (3.5-5.1) mEq/L Chloride 104 (98-107) mEq/L Carbon Dioxide 27 (21-32) mEq/L Anion Gap 11.7 (5-15) BUN 24 H (7-18) mg/dL Creatinine 0.8 (0.55-1.02) mg/dL Est Cr Clr Drug Dosing 50.75 mL/min Estimated GFR (MDRD) > 60 (>60) mL/min BUN/Creatinine Ratio 30.0 H (14-18) Glucose 130 H (70-99) mg/dL POC Glucose (70-99) mg/dL Hemoglobin A1c ( - 5.6) % Calcium 8.5 (8.5-10.1) mg/dL Magnesium 2.1 (1.8-2.4) mg/dL Total Bilirubin 0.2 (0.2-1.0) mg/dL AST 21 (15-37) U/L ALT 15 (14-59) U/L Alkaline Phosphatase 108 (46-116) U/L C-Reactive Protein 0.3 (<1.0) mg/dL Total Protein 6.6 (6.4-8.2) g/dl Albumin 3.0 L (3.4-5.0) g/dl Globulin 3.6 gm/dL Albumin/Globulin Ratio 0.8 L (1-2) Med Orders - Current: Current Medications Acetaminophen (Acetaminophen 325 Mg Tab) 650 mg PO Q4H PRN PRN Reason: Pain (Mild 1-3)/fever Last Admin: 09/22/21 04:22 Dose: 650 mg Documented by: Hydrocodone Bitart/Acetaminophen (Acetaminophen/Hydrocodone 325-5 Mg Tab) 325 tab PO Q6H PRN PRN Reason: Pain Albuterol (Albuterol 0.083% 2.5 Mg/3 Ml Neb Soln) 2.5 mg NEB Q2H PRN PRN Reason: Shortness Of Breath/wheezing Albuterol/Ipratropium (Albuterol/Ipratropium 3.0-0.5 Mg/3 Ml Neb Soln) 3 ml NEB Q4H PRN PRN Reason: Shortness Of Breath/wheezing Cyclobenzaprine HCl (Cyclobenzaprine 10 Mg Tab) 10 mg PO BID PRN PRN Reason: Spasms Enoxaparin Sodium (Enoxaparin 40 Mg/0.4 Ml Syringe) 40 mg SUBCUT DAILY [facility] Last Admin: 09/23/21 09:07 Dose: 40 mg Documented by: Gabapentin (Gabapentin 600 Mg Tab) 600 mg PO TID [facility] Last Admin: 09/23/21 09:08 Dose: 600 mg Documented by: Guaifenesin/Phenylephrine HCl (Guaifenesin/Dextromethorphan 100-10 Mg/5 Ml Soln 5 Ml Cup) 10 ml PO QID PRN PRN Reason: cough Last Admin: 09/23/21 09:11 Dose: 10 ml Documented by: Remdesivir 100 mg/ Sodium (Chloride) 100 mls @ 100 mls/hr IV ONETIME [facility] Stop: 09/23/21 12:59 Ibuprofen (Ibuprofen 200 Mg Tab) 200 mg PO Q4HR PRN PRN Reason: Pain Insulin Glargine (Insulin Glargine,Hum.Rec.Anlog 100 Unit/Ml 3 Ml Pen) 20 unit SUBCUT DAILY [facility] Last Admin: 09/23/21 09:05 Dose: 20 unit Documented by: Insulin Human Lispro (Insulin Lispro 100 Unit/Ml 3 Ml Kwikpen) 0 unit SUBCUT QIDACANDBED [facility]; Protocol Last Admin: 09/23/21 07:23 Dose: Not Given Documented by: Insulin Human Lispro (Insulin Lispro 100 Unit/Ml 3 Ml Kwikpen) 5 unit SUBCUT TIDAC [facility] Last Admin: 09/23/21 09:03 Dose: 5 units Documented by: Metoprolol Tartrate (Metoprolol Tartrate 50 Mg Tab) 75 mg PO BID [facility] Last Admin: 09/23/21 09:08 Dose: 75 mg Documented by: Ondansetron HCl (Ondansetron 4 Mg/2 Ml Sdv) 4 mg IV Q6H PRN PRN Reason: Nausea/Vomiting Simvastatin (Simvastatin 20 Mg Tab) 20 mg PO BEDTIME [facility] Last Admin: 09/22/21 21:28 Dose: 20 mg Documented by: Sodium Chloride (Sodium Chloride 0.9% 10 Ml Syringe) 10 ml FLUSH ASDIRECTED PRN PRN Reason: Keep Vein Open Last Admin: 09/21/21 14:41 Dose: 10 ml Documented by: Tramadol HCl (Tramadol 50 Mg Tab) 50 mg PO Q6H PRN PRN Reason: Pain Trazodone HCl (Trazodone 50 Mg Tab) 50 mg PO BEDTIME PRN PRN Reason: Sleep Last Admin: 09/23/21 00:33 Dose: 50 mg Documented by: Discontinued Medications Dexamethasone (Dexamethasone 4 Mg Tab) 6 mg PO ONETIME ONE Stop: 09/21/21 13:09 Last Admin: 09/21/21 13:39 Dose: 6 mg Documented by: Dexamethasone (Dexamethasone 4 Mg Tab) 6 mg PO DAILY [facility] Stop: 10/01/21 09:01 Last Admin: 09/22/21 08:19 Dose: 6 mg Documented by: Dextrose/Water (50% Dextrose In Water 50 Ml Syringe) 25 ml IVPUSH ONETIME ONE Stop: 09/21/21 13:32 Last Admin: 09/21/21 13:38 Dose: 25 ml Documented by: Diphenhydramine HCl (Diphenhydramine 50 Mg/Ml Sdv) 50 mg IVPUSH ASDIRECTED PRN PRN Reason: hypersensitivity reaction Epinephrine HCl (Epinephrine 1 Mg/Ml Sdv) 0.3 mg IM ASDIRECTED PRN PRN Reason: hypersensitivity reaction Famotidine (Famotidine 20 Mg/2 Ml Sdv) 20 mg IVPUSH ASDIRECTED PRN PRN Reason: hypersensitivity reaction Gabapentin (Gabapentin 600 Mg Tab) 600 mg PO ONETIME ONE Stop: 09/22/21 09:46 Last Admin: 09/22/21 09:43 Dose: 600 mg Documented by: Bamlanivimab 700 mg/Etesevimab 1,400 mg/ Sodium Chloride 160 mls @ 310 mls/hr IV ONETIME ONE Stop: 09/21/21 13:04 Last Admin: 09/21/21 13:05 Dose: Not Given Documented by: Remdesivir 200 mg/ Sodium (Chloride) 250 mls @ 250 mls/hr IV ONETIME ONE Stop: 09/21/21 17:59 Last Admin: 09/21/21 17:35 Dose: 250 mls/hr Documented by: Remdesivir 100 mg/ Sodium (Chloride) 100 mls @ 100 mls/hr IV Q24H [facility] Stop: 09/25/21 17:59 Last Admin: 09/22/21 16:39 Dose: 100 mls/hr Documented by: Insulin Glargine (Insulin Glargine,Hum.Rec.Anlog 100 Unit/Ml 3 Ml Pen) 16 unit SUBCUT NOW STA Stop: 09/22/21 13:00 Last Admin: 09/22/21 13:45 Dose: 16 units Documented by: Methylprednisolone Sodium Succinate (Methylprednisolone Sodium Succinate 125 Mg/2 Ml Sdv) 125 mg IVPUSH ASDIRECTED PRN PRN Reason: hypersensitivity reaction Sodium Chloride (Sodium Chloride 0.9% 10 Ml Syringe) 30 ml FLUSH ASDIRECTED [facility] - Exam Quality Assessment: Denies: Supplemental Oxygen General: Reports: Alert, Oriented HEENT: Reports: Pupils Equal, Mucous Membr. Moist/Pulcifer Neck: Reports: Supple Lungs: Reports: Normal Respiratory Effort, Crackles (Minimal crackles in the left lower lobe otherwise clear) Cardiovascular: Reports: Regular Rate, Regular Rhythm GI/Abdominal Exam: Normal Bowel Sounds, Soft, Non-Tender, No Organomegaly, No Distention, No Abnormal Bruit, No Mass Extremities: Normal Inspection, Normal Range of Motion, Non-Tender, No Pedal Edema, Normal Capillary Refill Skin: Reports: Warm, Dry, Intact Neurological: Reports: No New Focal Deficit Psy/Mental Status: Reports: Alert, Normal Affect, Normal Mood
[2021-09-23] MEDS ORDERED: REMDESIVIR 100 MG in Sodium Chloride 0.9% 100 ML IV SCH (12:00)
== END 2021-09-23 14:00 | disposition home or self-care (01) | DRG 179 ==
LOC: JD.ED 12:04 → JD.MS 13:52
PROVIDERS: ADMIT Family Medicine; ATTEND Family Medicine
PROC: XW033E5 Introduction of Remdesivir Anti-infective into Peripheral Vein, Percutaneous Approach, New Technology Group 5 (ICD-10-PCS; principal; 2021-09-21)
PROC: 3E0DX3Z Introduction of Anti-inflammatory into Mouth and Pharynx, External Approach (ICD-10-PCS; principal; 2021-09-21)
PROC: 8E0ZXY6 Isolation (ICD-10-PCS; principal; 2021-09-21)
DX: U07.1 COVID-19 (principal); D64.9 Anemia, unspecified; E11.9 Type 2 diabetes mellitus without complications; I10 Essential (primary) hypertension; E78.5 Hyperlipidemia, unspecified; Z66 Do not resuscitate; E11.649 Type 2 diabetes mellitus with hypoglycemia without coma; H54.7 Unspecified visual loss; E78.00 Pure hypercholesterolemia, unspecified; F32.9 Major depressive disorder, single episode, unspecified; E11.40 Type 2 diabetes mellitus with diabetic neuropathy, unspecified; K57.90 Diverticulosis of intestine, part unspecified, without perforation or abscess without bleeding; G89.29 Other chronic pain; M54.9 Dorsalgia, unspecified; M79.7 Fibromyalgia; M19.90 Unspecified osteoarthritis, unspecified site; Z96.641 Presence of right artificial hip joint; M25.561 Pain in right knee; M25.562 Pain in left knee; Z86.16 Personal history of COVID-19; Z86.19 Personal history of other infectious and parasitic diseases; Z79.899 Other long term (current) drug therapy; Z79.4 Long term (current) use of insulin; Z79.82 Long term (current) use of aspirin; Z88.5 Allergy status to narcotic agent; Z88.8 Allergy status to other drugs, medicaments and biological substances; Z86.010 Personal history of colon polyps; Z98.49 Cataract extraction status, unspecified eye; Z90.49 Acquired absence of other specified parts of digestive tract; Z90.710 Acquired absence of both cervix and uterus
CPT/HCPCS: 36415; 71045; 80053; 84484; 85025; 85379; 85610; 85730; 86140; 93005; J8540; 81001; 82947; 83036; 83735; 83880; 84100; 93010; 94762; 96374; 99223; 99232; 99239; 99285; 99285-25; A9270-GY; J1650; J1815; J7050

== ENCOUNTER 2021-09-26 05:21 | Emergency (ER) | payer MEDICARE, OTHER ==
[2021-09-26 05:30] VITALS: BP 155/76; PULSE 67
[2021-09-26] MEDS ORDERED: Acetaminophen 325 MG Tab PO ONE (05:39)
--- NOTE | 2021-09-26 05:42 | EDM.PDOC ---
ED HPI GENERAL MEDICAL PROBLEM - General Chief Complaint: Lower Extremity Injury/Pain Stated Complaint: [facility] Time Seen by Provider: 09/26/21 05:25 Source of Information: Reports: Patient History Limitations: Reports: No Limitations - History of Present Illness INITIAL COMMENTS - FREE TEXT/NARRATIVE: Mrs. Pisano is a very pleasant 81-year-old woman who is now brought to the ED by EMS with right knee pain. She states that her right knee gave out, and she fell yesterday, 09/25/2021. Since then, she has had considerable right knee pain, and is unable to bear weight on her right lower extremity. She also mentioned that she struck her head on a wall when she fell, although she did not lose consciousness. She denies having a headache. The patient states that her right knee has given out many times in the past. The patient states that she took some acetaminophen just prior to being brought to the ED. Here in the ED, the patient's initial BP is found to be modestly elevated at 155/76, otherwise, she is hemodynamically stable, afebrile, saturating 97% on room air. She appears to be relatively comfortable, in no acute distress. The patient was diagnosed with COVID-19 on 09/21/2021. She was admitted to this hospital for hypoxemia and hypoglycemia, being discharged home on 09/23/2021. Since then, she states that she has been feeling relatively weak. Otherwise, the patient denies having a recent fever, chills, sore throat, ear pain, nasal or sinus congestion,chest pain, palpitations, nausea, vomiting, constipation, diarrhea, abdominal pain, urinary symptoms, recent weight gain or weight loss, recent bloody bowel movements or black bowel movements, recent joint aches, headaches, or rashes. The patient's PCP is Dr. Robb Dwyer. Her Orthopedic Surgeon is Dr. Wilian Dowling. She has received 2 COVID vaccinations + an influenza vaccination this season. Right Knee Pain Score (Numeric/FACES): 10 - Related Data Allergies Allergy/AdvReac Type Severity Reaction Status Date / Time oxycodone [Oxycodone] Allergy Rash Verified 09/26/21 05:26 pioglitazone Allergy Swelling Verified 09/26/21 05:26 rosiglitazone [Rosiglitazone] Allergy Swelling Verified 09/26/21 05:26 Home Meds: Home Meds Calcium Carbonate/Vitamin D3 [Caltrate 600 Plus D3 Tablet] 600 mg PO DAILY 09/28/14 [History] Furosemide [Lasix] 20 mg PO DAILY 09/28/14 [History] Gabapentin [Neurontin] 600 mg PO TID 09/28/14 [History] Insulin Lispro [Humalog] 8 unit SQ TIDAC 09/28/14 [History] Ubidecarenone [Co Q-10] 100 mg PO DAILY 09/28/14 [History] Zinc Gluconate [Zinc] 50 mg PO DAILY 09/28/14 [History] traMADol [Ultram] 50 mg PO Q6H PRN 09/28/14 [History] [place] 8-Vbybwnshz-Csuciql E 1,000 mg PO BID 02/13/15 [History] Cholecalciferol (Vitamin D3) [Vitamin D3] 2,000 unit PO DAILY 07/19/17 [History] Cyclobenzaprine [Flexeril] 10 mg PO BID PRN 07/19/17 [History] Metoprolol Tartrate [Lopressor] 50 mg PO BID 07/19/17 [History] Simvastatin [Zocor] 20 mg PO BEDTIME 02/10/18 [History] Cbd Oil 10 drop PO TID 02/11/19 [History] Insulin Glarg,Human.Rec.Analog [Lantus Solostar] 27 unit SUBCUT DAILY 02/11/19 [History] Acetaminophen/HYDROcodone [[place] 325-5 MG] 325 tab PO Q6H PRN 09/22/21 [History] Aspirin 81 mg PO BID 09/22/21 [History] Ibuprofen [Ibu-200] 200 mg PO Q4HR PRN 09/22/21 [History] Nystatin 100,000 units TOP TID PRN 09/22/21 [History] Past Medical History HEENT History: Reports: Impaired Vision (wears glasses) Cardiovascular History: Reports: High Cholesterol, Hypertension Gastrointestinal History: Reports: Colon Polyp, Diverticulosis (diverticulitis), Other (See Below) (Spastic colon) Musculoskeletal History: Reports: Back Pain, Chronic, Fracture, Fibromyalgia, Osteoarthritis Neurological History: Reports: Neuropathy, Diabetic Psychiatric History: Reports: Depression Endocrine/Metabolic History: Reports: Diabetes, Type II - Infectious Disease History Infectious Disease History: Reports: Chicken Pox, Measles, Novel Coronavirus (dx'd 09/21/2021) - Past Surgical History HEENT Surgical History: Reports: Cataract Surgery GI Surgical History: Reports: Appendectomy, Cholecystectomy (1999), Colonoscopy Female Surgical History: Reports: D&C (x >5), Hysterectomy (complete) Musculoskeletal Surgical History: Reports: Other (See Below) (Right hip pinning 02/15/2019) Social & Family History - Tobacco Use Tobacco Use Status *Q: Never Tobacco User - Caffeine Use Caffeine Use: Reports: Coffee Other Caffeine Use: 3 cups/day - Alcohol Use Alcohol Use History: No - Recreational Drug Use Recreational Drug Use: No - Living Situation & Occupation Living situation: Reports: , with Family (Daughter) Occupation: Retired Review of Systems - Review of Systems Review Of Systems: Comprehensive ROS is negative, except as noted in HPI. ED EXAM, GENERAL - Physical Exam Exam: See Below Exam Limited By: No Limitations General Appearance: Alert, WD/WN, No Apparent Distress Eye Exam: Bilateral Eye: EOMI, Normal Inspection Ears: Normal External Exam, Hearing Grossly Normal Nose: Normal Inspection Throat/Mouth: Normal Inspection, Normal Lips, Normal Voice, No Airway Compromise Head: Atraumatic, Normocephalic Neck: Normal Inspection, Full Range of Motion Respiratory/Chest: No Respiratory Distress, Lungs Clear, Normal Breath Sounds, No Accessory Muscle Use Cardiovascular: Normal Peripheral Pulses, Regular Rate, Rhythm, No Edema, No Gallop, No JVD, No Murmur, No Rub Peripheral Pulses: 3+: Radial (L), Radial (R) GI/Abdominal: Normal Bowel Sounds, Soft, Non-Tender, No Organomegaly, No Distention, No Abnormal Bruit, No Mass Extremities: No Pedal Edema, Normal Capillary Refill, Other (Visible swelling to the right knee, when compared to the left. Tenderness to the right knee circumferentially, greatest posteriorly. Pain with attempts at flexion of the knee. Neurovascular status of the right lower extremity is intact.) Neurological: Alert, Oriented, CN II-XII Intact, Normal Cognition, No Motor/Sensory Deficits Psychiatric: Normal Affect Skin Exam: Warm, Dry, Intact, Normal Color, No Rash Course - Vital Signs Last Recorded V/S: Last Vital Signs Temp 36.9 C 09/26/21 05:26 Pulse 67 09/26/21 05:26 Resp 15 09/26/21 05:26 BP 155/76 H 09/26/21 05:26 Pulse Ox 97 09/26/21 05:26 - Orders/Labs/Meds Orders: Active Orders 24 hr Category Date Time Status DME for Discharge [COMM] Stat Oth 09/26/21 06:28 Ordered Meds: Medications Discontinued Medications Generic Name Dose Route Start Last Admin Trade Name Shubham PRN Reason Stop Dose Admin Acetaminophen 325 mg 09/26/21 05:39 09/26/21 06:04 Acetaminophen 325 Mg Tab PO 09/26/21 05:40 325 mg NOW ONE Administration - Re-Assessments/Exams Free Text/Narrative Re-Assessment/Exam: 09/26/21 05:39 The patient's right knee is swollen, and she complains of tenderness to palpation on all sides, although she states that it is most tender to the posterior knee. Pain is induced with any attempt at flexion. I have ordered x- rays to evaluate. I have also ordered a CT of her head without contrast, due to her falling and striking her head yesterday, although I do not suspect that we will find an intracranial injury. In the meantime, the patient will be given 3 and 25 mg of acetaminophen; she states that she had taken some acetaminophen just prior to coming to the ED. 09/26/21 06:22 Four-view radiographs of the right knee appear to demonstrate degenerative joint disease and osteopenia, but no fractures or dislocations identified. There is a circular opacity within the posterolateral joint space, however, this appears to be old. Calcifications within the popliteal artery are noted. Formal read per the radiologist pending. Based on the above, the patient's right knee pain appears to be soft tissue in etiology, likely tendinous. I will order a right knee immobilizer. 09/26/21 06:41 CT of the head without contrast is read by Dr. Austin as: 1. Mild senescent change. 2. Mild sinus findings believed to be chronic. 3. Nothing acute is appreciated on noncontrast head CT study. 09/26/21 06:56 X-ray and CT results discussed with the patient. I will discharge her home with recommendation that she ice and elevate her right knee is much as possible over the next few days. She can continue to take OTC acetaminophen as needed for discomfort. She will need to wear the knee immobilizer until she sees Dr. Dowling. Departure - Departure Time of Disposition: 06:57 Disposition: Home, Self-Care 01 Condition: Good Clinical Impression: Internal derangement of right knee - Discharge Information *PRESCRIPTION DRUG MONITORING PROGRAM REVIEWED*: Not Applicable *COPY OF PRESCRIPTION DRUG MONITORING REPORT IN PATIENT TONY: Not Applicable Referrals: Robb Dwyer MD [Physician] - Wilian Dowling MD [Physician] - Forms: ED Department Discharge Additional Instructions: You were seen in the emergency room after your right knee gave out, causing you to fall and injure your right knee. Work-up in the ER included x-rays of your right knee, along with a CT of your head. The x-rays showed arthritis of your right knee, but no broken bones or dislocations. The CT of your head was unremarkable. Based on your history, physical exam, and ER x-rays, you most likely have an internal derangement of your right knee. Your right lower extremity has been placed into a knee immobilizer. This should be applied over your clothes every morning, and removed at bedtime. You may continue to take ztwv-caz-ququhyp acetaminophen (Tylenol) as needed for discomfort. We recommend that you ice and elevate your right knee as much as possible over the next few days, to help minimize swelling. Please follow-up with your Orthopedic Surgeon, Dr. Wilian Dowling, at the next available appointment. If any other problems, please do not hesitate to return to the ER. Sepsis Event Note (ED) - Evaluation Sepsis Screening Result: No Definite Risk - Focused Exam Vital Signs: Vital Signs Temp Pulse Resp BP Pulse Ox 09/26/21 05:26 36.9 C 67 15 155/76 H 97 - My Orders Last 24 Hours: My Active Orders 09/26/21 06:28 DME for Discharge [COMM] Stat - Assessment/Plan Last 24 Hours: My Active Orders 09/26/21 06:28 DME for Discharge [COMM] Stat
--- NOTE | 2021-09-26 06:19 | CT ---
Head CT Technique: Multiple axial sections of the brain were obtained. Intravenous contrast was not utilized. Reconstructed coronal and sagittal images were also obtained. Comparison: No prior intracranial imaging is available. Findings: Ventricles along with basal cisterns and sulci over the convexities are mildly prominent. Atherosclerotic calcification is seen within the carotid siphon and within the vertebral vessels. Minimal diminished density is noted within the left basal ganglia compatible with old lacunar infarct. No other abnormal parenchymal densities are seen. No evidence of intracranial hemorrhage. No midline shift or mass-effect is seen. Mild mucosal thickening is noted within the ethmoid sinuses. Minimal mucosal thickening is noted within the sphenoid and maxillary sinuses. Visualized mastoid sinuses are clear. No acute calvarial abnormality is appreciated. Impression: 1. Mild senescent change. 2. Mild sinus findings believed to be chronic. 3. Nothing acute is appreciated on noncontrast head CT study. Diagnostic code #2
--- NOTE | 2021-09-26 06:22 | CR ---
Right knee: 4 views of the right knee were obtained. Comparison: Prior right knee study of 02/10/18. Moderate medial joint space narrowing is seen which is stable. Slight chondrocalcinosis is noted within the menisci. Minimal osteophytes are seen off the tibia both medially and laterally. Mild osteophytes are noted within the patellofemoral joint. Vascular calcification is seen. Bony structures are osteopenic. No discrete fracture, dislocation or other bony abnormality is appreciated. Impression: 1. Stable degenerative change, vascular calcification and osteopenia. 2. No acute bony abnormality is appreciated on right knee study. Diagnostic code #2
== END 2021-09-26 08:00 | disposition home or self-care (01) ==
LOC: JD.ED 05:21
DX: M23.91 Unspecified internal derangement of right knee (principal); I10 Essential (primary) hypertension; E78.00 Pure hypercholesterolemia, unspecified; E11.40 Type 2 diabetes mellitus with diabetic neuropathy, unspecified; Z88.5 Allergy status to narcotic agent; Z88.8 Allergy status to other drugs, medicaments and biological substances; Z79.4 Long term (current) use of insulin; Z79.899 Other long term (current) drug therapy
CPT/HCPCS: 70450; 73564; 99284; A9270

== ENCOUNTER 2021-09-27 07:19 | Emergency (ER) | payer MEDICARE, OTHER ==
[2021-09-27 07:39] VITALS: BP 139/77; PULSE 63
[2021-09-27] MEDS ORDERED: Acetaminophen/HYDROcodone 325-5 MG Tab PO ONE (08:00)
--- NOTE | 2021-09-27 08:31 | EDM.PDOC ---
ED HPI GENERAL MEDICAL PROBLEM - General Chief Complaint: Lower Extremity Injury/Pain Stated Complaint: KNEE PAIN Time Seen by Provider: 09/27/21 07:46 Source of Information: Reports: Patient History Limitations: Reports: No Limitations - History of Present Illness INITIAL COMMENTS - FREE TEXT/NARRATIVE: The patient presents with right knee pain. She was seen here yesterday for a fall and right knee pain. She also hit her head. She was admitted her on the for COVID 19. She was discharged a couple days later blanquita the . She has generalized weakness and fell yesterday. She had a CT of her head done that looks good. She also had an x-ray of her right knee and that showed degenerative change but nothing acute. She was put in a knee immobilizer and she uses a cane. She still has right knee pain and could not sleep well because of the pain. Onset: Sudden Duration: Day(s): (yesterday) Location: Reports: Lower Extremity, Right Quality: Reports: Sharp Severity: Moderate Improves with: Reports: Immobilization Worsens with: Reports: Movement Context: Reports: Trauma (fell yesterday) Associated Symptoms: Reports: No Other Symptoms Right Knee Pain Score (Numeric/FACES): 10 - Related Data Allergies Allergy/AdvReac Type Severity Reaction Status Date / Time oxycodone [Oxycodone] Allergy Rash Verified 09/27/21 07:39 pioglitazone Allergy Swelling Verified 09/27/21 07:39 rosiglitazone [Rosiglitazone] Allergy Swelling Verified 09/27/21 07:39 Home Meds: Home Meds Calcium Carbonate/Vitamin D3 [Caltrate 600 Plus D3 Tablet] 600 mg PO DAILY 09/28/14 [History] Furosemide [Lasix] 20 mg PO DAILY 09/28/14 [History] Gabapentin [Neurontin] 600 mg PO TID 09/28/14 [History] Insulin Lispro [Humalog] 8 unit SQ TIDAC 09/28/14 [History] Ubidecarenone [Co Q-10] 100 mg PO DAILY 09/28/14 [History] Zinc Gluconate [Zinc] 50 mg PO DAILY 09/28/14 [History] traMADol [Ultram] 50 mg PO Q6H PRN 09/28/14 [History] [place] 6-Wkzeiibbr-Ftjuqiy E 1,000 mg PO BID 02/13/15 [History] Cholecalciferol (Vitamin D3) [Vitamin D3] 2,000 unit PO DAILY 07/19/17 [History] Cyclobenzaprine [Flexeril] 10 mg PO BID PRN 07/19/17 [History] Metoprolol Tartrate [Lopressor] 50 mg PO BID 07/19/17 [History] Simvastatin [Zocor] 20 mg PO BEDTIME 02/10/18 [History] Cbd Oil 10 drop PO TID 02/11/19 [History] Insulin Glarg,Human.Rec.Analog [Lantus Solostar] 27 unit SUBCUT DAILY 02/11/19 [History] Acetaminophen/HYDROcodone [[place] 325-5 MG] 325 tab PO Q6H PRN 09/22/21 [History] Aspirin 81 mg PO BID 09/22/21 [History] Ibuprofen [Ibu-200] 200 mg PO Q4HR PRN 09/22/21 [History] Nystatin 100,000 units TOP TID PRN 09/22/21 [History] Hydrocodone/Acetaminophen [Hydrocodone-Acetamin 5-325 mg] 1 - 2 each PO Q6H PRN #15 tablet 09/27/21 [Rx] Past Medical History HEENT History: Reports: Impaired Vision (wears glasses) Other HEENT History: pt wears glasses Cardiovascular History: Reports: High Cholesterol, Hypertension Respiratory History: Reports: SOB, Other (See Below) Other Respiratory History: stated for 4 months Gastrointestinal History: Reports: Colon Polyp, Diverticulosis (diverticulitis), Other (See Below) (Spastic colon) Other Gastrointestinal History: spastic colon Genitourinary History: Reports: None TRAINER History: Reports: Musculoskeletal History: Reports: Back Pain, Chronic, Fracture, Fibromyalgia, Osteoarthritis Other Musculoskeletal History: chronic bilateralknee pain Neurological History: Reports: Neuropathy, Diabetic Psychiatric History: Reports: Depression Endocrine/Metabolic History: Reports: Diabetes, Type II - Infectious Disease History Infectious Disease History: Reports: Chicken Pox, Measles, Novel Coronavirus (dx'd 09/21/2021) - Past Surgical History GI Surgical History: Reports: Appendectomy, Cholecystectomy (1999), Colonoscopy Female Surgical History: Reports: D&C (x >5), Hysterectomy (complete) Musculoskeletal Surgical History: Reports: Other (See Below) (Right hip pinning 02/15/2019) Social & Family History - Family History Family Medical History: No Pertinent Family History - Caffeine Use Caffeine Use: Reports: Coffee Other Caffeine Use: 3 cups/day - Living Situation & Occupation Living situation: Reports: , with Family (Daughter) Occupation: Retired Review of Systems - Review of Systems Review Of Systems: See Below Constitutional: Reports: No Symptoms Eyes: Reports: No Symptoms Ears: Reports: No Symptoms Nose: Reports: No Symptoms Mouth/Throat: Reports: No Symptoms Respiratory: Reports: No Symptoms Cardiovascular: Reports: No Symptoms GI/Abdominal: Reports: No Symptoms Genitourinary: Reports: No Symptoms Musculoskeletal: Reports: Other (right knee pain) ED EXAM, GENERAL - Physical Exam Exam: See Below Exam Limited By: No Limitations General Appearance: Alert, No Apparent Distress Ears: Normal External Exam Nose: Normal Inspection Head: Atraumatic, Normocephalic Neck: Normal Inspection Respiratory/Chest: No Respiratory Distress, Lungs Clear, Normal Breath Sounds Cardiovascular: Regular Rate, Rhythm, No Edema, No Murmur GI/Abdominal: Soft, Non-Tender, No Organomegaly, No Mass Extremities: Other (Pain upon palpation with edema to the right knee. Good sensation and pulses distally.) Neurological: Alert, Oriented, No Motor/Sensory Deficits Course - Vital Signs Last Recorded V/S: Last Vital Signs Temp 97.3 F 09/27/21 07:36 Pulse 63 09/27/21 07:36 Resp 15 09/27/21 07:36 BP 139/77 09/27/21 07:36 Pulse Ox 99 09/27/21 07:36 - Orders/Labs/Meds Orders: Active Orders 24 hr Category Date Time Status Knee wo Cont Rt [CT] Stat Exams 09/27/21 08:00 Taken Meds: Medications Discontinued Medications Generic Name Dose Route Start Last Admin Trade Name Shubham PRN Reason Stop Dose Admin Hydrocodone Bitart/Acetaminophen 1 tab 09/27/21 08:00 09/27/21 08:13 Acetaminophen/Hydrocodone 325-5 Mg Tab PO 09/27/21 08:01 1 tab ONETIME ONE Administration - Re-Assessments/Exams Free Text/Narrative Re-Assessment/Exam: 09/27/21 08:30 I ordered hydrocodone 5mg/325mg and a CT of the right knee. 09/27/21 11:[address] of her knee shows severe degenerative change. Mild soft tissue swelling. Vasculare calcification is noted. Osteopenia. No acute fracture or dislocation is seen. She feels a little better. I will get her on some hydrocodone and follow up with Dr Dowling. Departure - Departure Time of Disposition: 11:05 Disposition: Home, Self-Care 01 Condition: Good Clinical Impression: Fall Qualifiers: Encounter type: initial encounter Qualified Code(s): W19.XXXA - Unspecified fall, initial encounter Osteoarthritis, knee Qualifiers: Osteoarthritis type: primary Laterality: right Qualified Code(s): M17.11 - U nilateral primary osteoarthritis, right knee - Discharge Information *PRESCRIPTION DRUG MONITORING PROGRAM REVIEWED*: Not Applicable *COPY OF PRESCRIPTION DRUG MONITORING REPORT IN PATIENT TONY: Not Applicable Prescriptions: Hydrocodone/Acetaminophen [Hydrocodone-Acetamin 5-325 mg] 1 - 2 each PO Q6H PRN #15 tablet PRN Reason: Pain Referrals: Robb Dwyer MD [Primary Care Provider] - Wilian Dowling MD [Physician] - 1 Week Forms: ED Department Discharge Additional Instructions: Take tylenol or motrin for pain. If that does not help, use the hydrocodone. Use your walker to get around. Ice your knee for 15 minutes 3 times per day for 2 days. Follow up with Dr Dowling. Please return if you are worse. Sepsis Event Note (ED) - Evaluation Sepsis Screening Result: No Definite Risk - Focused Exam Vital Signs: Vital Signs Temp Pulse Resp BP Pulse Ox 09/27/21 07:36 97.3 F 63 15 139/77 99 - My Orders Last 24 Hours: My Active Orders 09/27/21 08:00 Knee wo Cont Rt [CT] Stat - Assessment/Plan Last 24 Hours: My Active Orders 09/27/21 08:00 Knee wo Cont Rt [CT] Stat
--- NOTE | 2021-09-28 08:36 | CT ---
CT right knee Technique: Multiple axial sections through the right knee were obtained. Reconstructed coronal and sagittal images were obtained. Comparison: Prior right knee radiographic study of 08/27/21. Findings: Severe narrowing is noted within the medial joint compartment with vacuum phenomena. Soft tissue calcifications are seen within the medial joint compatible with calcified meniscus. Calcification is also seen within the lateral joint compatible with calcified meniscus. Osteophytes are noted off the medial and lateral knee. Mild osteophyte is seen off the notch within the distal femur. Slight hypertrophy change is seen within the tibial spines. Degenerative spurring is noted within the patellofemoral joint. Small amount of air is seen within the suprapatellar region which is from the vacuum phenomena within the medial knee. There is no acute fracture or dislocation being seen. Small joint effusion is seen. Mild soft tissue swelling is seen. Vascular calcification is also noted. Bony structures are also diffusely osteopenic. Impression: 1. Severe degenerative change as noted above. 2. Mild soft tissue swelling. Vascular calcification is noted. Osteopenia. 3. No acute fracture or dislocation is seen. Diagnostic code #3 MTDD
== END 2021-09-27 11:30 | disposition home or self-care (01) ==
LOC: JD.ED 07:19
DX: M17.11 Unilateral primary osteoarthritis, right knee (principal); S09.90XA Unspecified injury of head, initial encounter; E78.00 Pure hypercholesterolemia, unspecified; I10 Essential (primary) hypertension; E11.9 Type 2 diabetes mellitus without complications; Z88.5 Allergy status to narcotic agent; Z79.4 Long term (current) use of insulin; Z79.899 Other long term (current) drug therapy; Z86.16 Personal history of COVID-19; Z79.82 Long term (current) use of aspirin; W18.09XA Striking against other object with subsequent fall, initial encounter
CPT/HCPCS: 73700; 99283; A9270

== ENCOUNTER 2022-09-19 09:08 | Emergency (ER) | payer MEDICARE, OTHER ==
[2022-09-19 10:44] VITALS: BP 162/73; PULSE 66
== END 2022-09-19 10:44 | disposition home or self-care (01) ==
LOC: JD.ED 09:08
DX: R04.0 Epistaxis (principal); E78.00 Pure hypercholesterolemia, unspecified; I10 Essential (primary) hypertension; E11.9 Type 2 diabetes mellitus without complications; Z88.5 Allergy status to narcotic agent; Z88.8 Allergy status to other drugs, medicaments and biological substances; Z79.899 Other long term (current) drug therapy; Z79.82 Long term (current) use of aspirin; Z79.4 Long term (current) use of insulin; Z90.49 Acquired absence of other specified parts of digestive tract; Z86.16 Personal history of COVID-19; Z90.710 Acquired absence of both cervix and uterus
CPT/HCPCS: 30901; 99283

== ENCOUNTER 2022-10-07 17:18 | Emergency (ER) | payer MEDICARE, OTHER ==
[2022-10-07] MEDS ORDERED: Lidocaine 1% 10 ML MDV INJECT ONE (17:34)
[2022-10-07 18:30] LABS: ESTIMATED GFR 73 mL/min (>60)
[2022-10-07 18:41] VITALS: BP 137/87; PULSE 80
== END 2022-10-07 19:40 | disposition home or self-care (01) ==
LOC: JD.ED 17:18
DX: S06.0X0A Concussion without loss of consciousness, initial encounter (principal); S01.111A Laceration without foreign body of right eyelid and periocular area, initial encounter; R19.7 Diarrhea, unspecified; I48.91 Unspecified atrial fibrillation; E11.40 Type 2 diabetes mellitus with diabetic neuropathy, unspecified; Z86.16 Personal history of COVID-19; Z79.01 Long term (current) use of anticoagulants; Z88.8 Allergy status to other drugs, medicaments and biological substances; Z79.82 Long term (current) use of aspirin; Z79.4 Long term (current) use of insulin; W01.198A Fall on same level from slipping, tripping and stumbling with subsequent striking against other object, initial encounter
CPT/HCPCS: 12011; 12013; 36415; 70450; 70450-26; 80053; 82947; 85025; 99284